=== PATIENT | female | born 1955 | race African-American/Black ===

== ENCOUNTER 2020-12-05 10:39 | Outpatient (CLI) | payer OTHER, SELFPAY ==
[2020-12-05 19:01] LABS: Basophils Absolute Auto 0.1 K/mm3 (0.0-0.1); Basophils Percent Auto 0.9 % (0.2-1.2); Eosinophils Absolute Auto 0.3 K/mm3 (0-0.3); Eosinophils Percent Auto 3.1 % (0-4.4); Hematocrit 46.5 % (37.0-47.0); Hemoglobin 15.2 g/dL (12.0-15.0); Immature Granulocyte Absolute 0.04 K/mm3 (0.00-0.031); Immature Granulocyte Percent A 0.4 % (0-0.5); Lymphocytes Absolute Auto 2.15 K/mm3 (0.9-3.2); Lymphocytes Percent Auto 23.2 % (18.3-44.2); Mean Corpuscular HGB Conc 32.7 g/dl (32-36); Mean Corpuscular Hemoglobin 27.9 pg (26-34); Mean Corpuscular Volume 85.3 fl (80-100); Mean Platelet Volume 12.1 fl (7.4-10.4); Monocytes Absolute Auto 0.5 K/mm3 (0.1-0.6); Monocytes Percent Auto 4.9 % (2.6-8.5); Neutrophils Absolute Auto 6.3 K/mm3 (1.3-6.7); Neutrophils Percent Auto 67.5 % (45.5-73.1); Platelet Count Result 227 k/mm3 (150-375); Red Blood Count 5.45 M/mm3 (4.2-5.4); Red Cell Distribution Width 14.3 % (11.5-14.5); White Blood Count 9.3 K/mm3 (4.5-10.0)
[2020-12-05 19:14] LABS: Alanine Aminotransferase 12 U/L (4-35); Albumin Level 4.6 g/dL (3.5-5.1); Alkaline Phosphatase 73 U/L (38-126); Anion Gap 8 mmol/L (8-16); Aspartate Amino Transferase 20 U/L (14-36); Bilirubin,Total 1.1 mg/dL (0.2-1.3); Blood Urea Nitrogen 14 mg/dL (7-17); Calcium 9.9 mg/dL (8.4-10.2); Carbon Dioxide 30 mmol/L (22-30); Chloride 104 mmol/L (98-107); Cholesterol 202 mg/dL (0-200); Estimated Glomerular Filt Rate > 60; Glucose 95 mg/dL (65-110); HDL Direct 46 mg/dL; Sodium 142 mmol/L (137-145); Triglycerides 135 mg/dL (<150)
[2020-12-05 19:26] LABS: LDL Cholesterol Direct 113 mg/dL
[2020-12-05 20:33] LABS: Hemoglobin A1C 5.3 % (<5.7)
== END 2020-12-05 10:40 | disposition home or self-care (01) ==
PROVIDERS: PCP Family Medicine; Visit Provider Family Medicine
DX: Z51.81 Encounter for therapeutic drug level monitoring (principal); Z79.899 Other long term (current) drug therapy; Z00.01 Encounter for general adult medical examination with abnormal findings
CPT/HCPCS: 36415; 80053; 80061; 83036; 85025

== ENCOUNTER 2021-03-19 11:57 | Outpatient (CLI) | payer OTHER, SELFPAY ==
--- NOTE | ~2021-03-19 | XR_ITS ---
XR shoulder LT min 2V 03/19/2021 12:07 Indication: Left shoulder pain Procedure: 4 views left shoulder Comparison: No prior studies for comparison. Findings: No fracture, subluxation or dislocation. There is mild polyarticular osteoarthritis of the left shoulder. No significant soft tissue abnormality. Impression: 1: Mild polyarticular osteoarthritis of the left shoulder. Reviewed, dictated and finalized at location B. HER TENDER HELPER Impression: 1: Mild polyarticular osteoarthritis of the left shoulder.
== END 2021-03-19 11:58 | disposition home or self-care (01) ==
LOC: ANHBWCIMG 11:58
PROVIDERS: PCP Family Medicine; Visit Provider Family Medicine
DX: M25.512 Pain in left shoulder (principal); M19.012 Primary osteoarthritis, left shoulder
CPT/HCPCS: 73030

== ENCOUNTER 2021-04-17 09:04 | Outpatient (CLI) | payer OTHER, SELFPAY ==
--- NOTE | ~2021-04-17 | XR_ITS ---
EXAMINATION:XR cervical spine 4-5V DATE: 04/17/2021 09:18 INDICATION: Neck pain TECHNIQUE: AP, lateral, bilateral oblique and odontoid views of the cervical spine are provided. COMPARISON: None FINDINGS: Alignment is normal. The odontoid is intact. No fracture is identified. The vertebral body heights are maintained. There is mild loss of intervertebral disc space height at C4-5 and C5-6 and m oderate loss of intervertebral disc space height at C6-7. There is moderate multilevel facet and unco vertebral joint osteoarthritis. There is mild bilateral neuroforaminal stenosis at C6-7. Prevertebral soft tissues are normal. IMPRESSION: 1. Moderate cervical spondylosis without acute findings. Reviewed, dictated and finalized at location F. GER ENERGY
== END 2021-04-17 09:05 | disposition home or self-care (01) ==
LOC: ANHBWCIMG 09:05
PROVIDERS: PCP Family Medicine; Visit Provider Family Medicine
DX: M47.892 Other spondylosis, cervical region (principal)
CPT/HCPCS: 72050

== ENCOUNTER 2021-04-18 10:18 | Outpatient (CLI) | payer OTHER, SELFPAY ==
--- NOTE | ~2021-04-18 | MM_ITS ---
EXAMINATION: MM screening dariana BI w shira HISTORY: Screening mammogram TECHNIQUE: Craniocaudal and mediolateral oblique 3-D tomosynthesis images were obtained and synthetic 2-D images were generated. CAD analysis was submitted and interpreted. COMPARISON: No prior mammogram is available for comparison at this institution. BREAST PARENCHYMAL COMPOSITION: The breasts are almost entirely fatty. FINDINGS: There are several 5 mm smaller circumscribed opacities of the breasts, benign in appearance . Occasional benign calcifications. There is no evidence of suspicious mass, calcification, or edd ectural distortion to suggest malignancy in either breast. IMPRESSION: 1. No mammographic evidence of malignancy. 2. Recommend routine screening mammography in one year. BI-RADS Category 2: Benign finding(s). Reviewed, dictated and finalized at location A. WARE ENGINEERING PROJECT MANAGER
== END 2021-04-18 10:19 | disposition home or self-care (01) ==
PROVIDERS: PCP Family Medicine; Visit Provider Family Medicine
DX: Z12.31 Encounter for screening mammogram for malignant neoplasm of breast (principal)
CPT/HCPCS: 77063; 77067

== ENCOUNTER 2021-04-23 15:34 | Outpatient (CLI) | payer OTHER, SELFPAY ==
--- NOTE | ~2021-04-23 | MR_ITS ---
EXAMINATION: MR shoulder LT wo con DATE: 04/23/2021 16:29 INDICATION: Left shoulder pain. TECHNIQUE: Magnetic resonance imaging (MRI) of the left shoulder was performed without intravenous co ntrast. Sequences included axial PD-weighted FS FSE, coronal oblique PD-weighted FS FSE and T2-weight ed FS FSE, and sagittal oblique T2-weighted FS FSE and T1-weighted FSE. COMPARISON: Left shoulder radiographs 03/19/2021 FINDINGS: Coracoacromial arch: The acromion undersurface is flat in morphology (type I). There is moderate acromioclavicular joint o steoarthritis. There is mild subacromial/subdeltoid bursitis. Rotator cuff: There is moderate supraspinatus tendinopathy. There are 2 small interstitial tears in infraspinatus t endon. Teres minor tendon is normal. There is moderate distal subscapularis tendinopathy. There is no asymmetric fatty atrophy of the rotator cuff muscle bellies. Biceps tendon and glenoid labrum: Biceps tendon is in the bicipital groove. There is mild intra-articular biceps tendinopathy. There is degeneration of the glenoid labrum without well-defined tear. Fluid: There is a moderate-sized glenohumeral joint effusion. Bones/cartilage: There is partial-thickness cartilage loss of humeral head, deep at the posterior articular surface. T here is deep partial-thickness cartilage loss of glenoid. Osteophytes are noted. IMPRESSION: 1. Moderate glenohumeral joint chondrosis. 2. Rotator cuff tendinopathy with 2 small interstitial tears of infraspinatus tendon. 3. Moderate acromioclavicular joint osteoarthritis. 4. Moderate-sized glenohumeral joint effusion. 5. Mild subacromial/subdeltoid bursitis. 6. Mild intra-articular biceps tendinopathy. Reviewed, dictated and finalized at location A. TER IMPRESSION: 1. Moderate glenohumeral joint chondrosis. 2. Rotator cuff tendinopathy with 2 small interstitial tears of infraspinatus t endon. 3. Moderate acromioclavicular joint osteoarthritis. 4. Moderate-sized glenohumeral joint effusion. 5. Mild subacromial/subdeltoid bursitis. 6. Mild intra-articular biceps tendinopathy.
== END 2021-04-23 15:35 | disposition home or self-care (01) ==
PROVIDERS: PCP Family Medicine; Visit Provider Family Medicine
DX: M25.412 Effusion, left shoulder (principal); M19.012 Primary osteoarthritis, left shoulder; M75.52 Bursitis of left shoulder
CPT/HCPCS: 73221

== ENCOUNTER 2021-08-07 13:13 | Outpatient (CLI) | payer OTHER, SELFPAY ==
--- NOTE | ~2021-08-07 | XR_ITS ---
XR finger 1st RT min 2V DATE: 08/07/2021 13:23 INDICATION: Right thumb pain TECHNIQUE: 4 views COMPARISON: None FINDINGS: There is prominent osteoarthritis including prominent spurring at the interphalangeal joint of the first digit. No fracture or dislocation, periosteal reaction or bone destruction. IMPRESSION: Prominent osteoarthritic change at the interphalangeal joint including very prominent spu rring Reviewed, dictated and finalized at location A. IMPRESSION: Prominent osteoarthritic change at the interphalangeal joint includ ing very prominent spurring
== END 2021-08-07 13:14 | disposition home or self-care (01) ==
PROVIDERS: PCP Family Medicine; Visit Provider Family Medicine
DX: M18.11 Unilateral primary osteoarthritis of first carpometacarpal joint, right hand (principal)
CPT/HCPCS: 73140

== ENCOUNTER 2022-01-21 08:39 | Outpatient (CLI) | payer OTHER, SELFPAY ==
--- NOTE | ~2022-01-21 | XR_ITS ---
XR hand BI arthritis min 3V DATE: 01/21/2022 08:59 INDICATION: Chronic bilateral hand tingling and numbness TECHNIQUE: 4 views of each hand COMPARISON: None FINDINGS: Right hand: There is joint space narrowing at the triscaphe joint consistent with mild osteoarthritis. There is joint space narrowing and periarticular spurring at the interphalangeal joint of the first d igit, distal interphalangeal joint of the second digit and proximal and distal interphalangeal joints of the third digit, with lesser involvement at the proximal interphalangeal joint of the fourth digi t. No fracture or dislocation, periosteal reaction or bone destruction, erosive change or chondrocalcino sis of the right hand. Left hand: There is mild osteoarthritis at the first carpometacarpal joint. There is joint space narrowing and p rominent periarticular spurring at the interphalangeal joint of the first digit. Similar osteoarthrit ic changes are noted at the distal interphalangeal joint of the second digit and third digit. No fracture or dislocation, periosteal reaction or bone destruction, erosive change or chondrocalcino sis. IMPRESSION: Polyarticular osteoarthritis Reviewed, dictated and finalized at location B. 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
[2022-01-21 19:55] LABS: Basophils Absolute Auto 0.1 K/mm3 (0.0-0.1); Basophils Percent Auto 0.7 % (0.2-1.2); Eosinophils Absolute Auto 0.4 K/mm3 (0-0.3); Eosinophils Percent Auto 4.6 % (0-4.4); Hematocrit 44.7 % (37.0-47.0); Hemoglobin 14.8 g/dL (12.0-15.0); Immature Granulocyte Absolute 0.04 K/mm3 (0.00-0.031); Immature Granulocyte Percent A 0.5 % (0-0.5); Lymphocytes Absolute Auto 2.29 K/mm3 (0.9-3.2); Lymphocytes Percent Auto 26.8 % (18.3-44.2); Mean Corpuscular HGB Conc 33.1 g/dl (32-36); Mean Corpuscular Hemoglobin 26.9 pg (26-34); Mean Corpuscular Volume 81.3 fl (80-100); Mean Platelet Volume 11.5 fl (7.4-10.4); Monocytes Absolute Auto 0.5 K/mm3 (0.1-0.6); Monocytes Percent Auto 5.4 % (2.6-8.5); Neutrophils Absolute Auto 5.3 K/mm3 (1.3-6.7); Platelet Count Result 195 k/mm3 (150-375); Red Cell Distribution Width 13.6 % (11.5-14.5); White Blood Count 8.5 K/mm3 (4.5-10.0)
[2022-01-21 20:15] LABS: Alanine Aminotransferase 13 U/L (6-35); Albumin Level 4.3 g/dL (3.5-5.1); Alkaline Phosphatase 81 U/L (38-126); Anion Gap 10 mmol/L (8-16); Aspartate Amino Transferase 46 U/L (14-36); Bilirubin,Total 0.9 mg/dL (0.2-1.3); Blood Urea Nitrogen 12 mg/dL (7-17); Calcium 9.1 mg/dL (8.4-10.2); Carbon Dioxide 28 mmol/L (22-30); Chloride 104 mmol/L (98-107); Cholesterol 233 mg/dL (0-200); Estimated Glomerular Filt Rate > 60; Glucose 80 mg/dL (65-110); HDL Direct 34 mg/dL; Potassium 3.7 mmol/L (3.4-5.0); Sodium 142 mmol/L (137-145); Triglycerides 134 mg/dL (<150)
[2022-01-21 20:26] LABS: LDL Cholesterol Direct 126 mg/dL
[2022-01-24 12:58] LABS: ANA Cascade Screen Negative (Negative)
== END 2022-01-21 08:40 | disposition home or self-care (01) ==
LOC: ANHBWCLAB 08:40
PROVIDERS: PCP Family Medicine; Visit Provider Family Medicine
DX: M54.2 Cervicalgia (principal); I10 Essential (primary) hypertension; F17.200 Nicotine dependence, unspecified, uncomplicated; M25.512 Pain in left shoulder; M19.041 Primary osteoarthritis, right hand; M19.042 Primary osteoarthritis, left hand
CPT/HCPCS: 36415; 73130; 80053; 80061; 85025; 86038

== ENCOUNTER 2022-01-25 07:01 | Outpatient (CLI) | payer OTHER, SELFPAY ==
--- NOTE | ~2022-01-25 | CT_ITS ---
EXAMINATION: CT lung screening DATE: 01/25/2022 07:24 INDICATION: Personal history of nicotine dependence, current smoker with 30 pack year history TECHNIQUE: Computed tomography (CT) of the chest was performed without intravenous contrast. The dose -length product (DLP) was 182.55 mGy-cm. Automated exposure control and iterative reconstruction tech Go[employer]que were employed. COMPARISON: None FINDINGS: There is mild emphysema. No suspicious pulmonary nodules are identified. There is mild atel ectasis in the left lower lobe. No pleural effusion or pneumothorax. No pathologically enlarged thora cic lymph nodes are identified. The heart size is normal. Calcified coronary artery atherosclerosis i s noted. There is severe thoracic spondylosis. There is a 4.2 cm cyst of the left kidney. IMPRESSION: 1. Lung-RADS category 1: Negative. Continue annual screening with noncontrast low-dose chest CT in 12 months. Reviewed, dictated and finalized at location A. ING RELOCATION IMPRESSION: 1. Lung-RADS category 1: Negative. Continue annual screening with noncontrast l ow-dose chest CT in 12 months.
== END 2022-01-25 07:02 | disposition home or self-care (01) ==
LOC: ANHIMG 07:05
PROVIDERS: PCP Family Medicine; Visit Provider Family Medicine
DX: Z12.2 Encounter for screening for malignant neoplasm of respiratory organs (principal); F17.210 Nicotine dependence, cigarettes, uncomplicated
CPT/HCPCS: 71271

== ENCOUNTER 2022-02-06 12:54 | Outpatient (CLI) | payer OTHER, SELFPAY ==
--- NOTE | ~2022-02-06 | DEXA_ITS ---
Bone Density Report Name: JOLYNN ANDRADE Age: 66 Sex: Female Ethnicity: Black Date of : 1955 Indication: postmenopausal; screening for osteoporosis; height loss; hysterectomy; Referring Provider: YUMIKO DANG Study: Bone densitometry was performed. Exam Date: February 06, 2022 Accession number: [id number] Bone Density: Region BMD T-score Z-score Classification AP Spine(L1-L4) 1.119 0.7 1.7 Normal Femoral Neck (Left) 0.849 0.0 0.6 Normal Total Hip (Left) 1.015 0.6 0.9 Normal Femoral Neck (Right) 0.886 0.3 0.9 Normal Total Hip (Right) 1.053 0.9 1.2 Normal Total Hip Mean 1.034 0.8 1.1 Normal World Health Organization criteria for BMD impression classify patients as: Normal (T-score at or above -1.0), Osteopenia (T-score between -1.0 and -2.5), or Osteoporosis (T-score at or below -2.5). 10-year Fracture Risk: FRAX not reported because: All T-scores for Spine Total, Hip Total, Femoral Neck at or above -1.0 Clinical Information Provided by Patient: Smokes Has the following medical conditions: Hysterectomy Patient maximum height was 61 Menopause Age: 56 No regular weight bearing exercise Drinks caffeinated beverages Onset of menses at age 11 Number of children 5 Impression: The patient has normal bone mass. The patient has risk factors, including: smoking. Discussion: BONE DENSITY IS ABOVE THE MINIMUM DESIRABLE LEVEL AT ALL SKELETAL SITES TESTED. This patient?s bone mineral density is above the minimum desirable level (T-score -1.0 or better) at all sites measured. The patient should follow a healthful lifestyle (good nutrition with adequate calcium and vitamin D, and appropriate weight-bearing exercise). Follow-Up: Consider repeating this study in 5 years or sooner if there is some new clinical indication. Reported by: MARCY on 02/06/2022 1:26:00 PM. Reviewed, dictated and finalized at location AOdilia CORDOVA
== END 2022-02-06 12:55 | disposition home or self-care (01) ==
LOC: ANHIMG 12:56
PROVIDERS: PCP Family Medicine; Visit Provider Family Medicine
DX: Z13.820 Encounter for screening for osteoporosis (principal); Z78.0 Asymptomatic menopausal state
CPT/HCPCS: 77080

== ENCOUNTER 2022-03-07 09:27 | Outpatient (CLI) | payer MEDICARE, SELFPAY ==
--- NOTE | 2022-03-07 11:00 | NEURO_ITS ---
Impression: # Complains of numbness of hands. # Bilateral Carpal Tunnel Syndrome of moderate degree. # Left ulnar neuropathy across the elbow. # Normal needle/EMG exam. Motor Nerve Conduction Upper Extremities Median Nerve Conduction Velocity (m/sec) Terminal Latency (msec) Response Voltage(mV) Elbow-Wrist Wrist Elbow Wrist Right 59 5.3 6 6 Left 60 5.6 6 6 Ulnar Nerve Conduction Velocity (m/sec) Terminal Latency (msec) Response Voltage(mV) Above Elbow Below Elbow Wrist Above Elbow Below Elbow Wrist Right 57 2.7 4 4 Left 50 60 2.8 5 4 8 F-Wave Latency Median (ms) Ulnar (ms) Right 28.1 27.3 Left 28.1 26.5 Sensory Nerve Conduction Upper Extremities Median Nerve Stimulation Terminal Latency (msec) Wrist/Digit Response Voltage (uV) Wrist Right 5.8/6.1 22/17 Left 5.2/5.4 /17 Ulnar Nerve Stimulation Terminal Latency (msec) Wrist/Digit Response Voltage (uV) Wrist Right 2.5 74 Left 2.4 48 Radial Nerve Terminal Latency (msec) Response Voltage(mV) Right 2.4 56 Left 2.2 41 Left Right Muscles Examined Fibrillation Fasciculation Scarcity Voltage Duration Left Right Left Right Left Right Left Right Left Right Deltoid Biceps X X Brachioradialis Triceps X X Pronator Teres X X Ext Indicis X X Ext Digitorum X X Abd Poll Brev X X 1st Dorsal Interosseus Paraspinals MTDD
== END 2022-03-07 09:28 | disposition home or self-care (01) ==
PROVIDERS: PCP Family Medicine; Visit Provider Family Medicine
DX: R20.0 Anesthesia of skin (principal); G56.03 Carpal tunnel syndrome, bilateral upper limbs; G56.22 Lesion of ulnar nerve, left upper limb
CPT/HCPCS: 95886; 95911

== ENCOUNTER 2022-05-22 08:22 | Outpatient (CLI) | payer MEDICARE, SELFPAY ==
--- NOTE | 2022-05-22 08:41 | ECG_ITS ---
Measurements Intervals Clive Rate: 80 P: 39 ND: 166 QRS: 34 QRSD: 90 T: 41 QT: 354 QTc: 410 Interpretive Statements SINUS RHYTHM MINIMAL Q WAVES- ANTERIOR LEADS INFERIOR INFARCT, AGE INDETERMINATE BASELINE ARTIFACT- I, II, III, AVR, AVL, AVF ABNORMAL ECG NO PREVIOUS ECG AVAILABLE FOR COMPARISON Electronically Signed On 05-22-2022 9:52:23 CDT by Ozzie Avalos D.O.
[2022-05-22 09:43] LABS: Anion Gap 9 mmol/L (8-16); Blood Urea Nitrogen 9 mg/dL (7-17); Calcium 8.7 mg/dL (8.4-10.2); Carbon Dioxide 29 mmol/L (22-30); Chloride 100 mmol/L (98-107); Estimated Glomerular Filt Rate > 60; Glucose 91 mg/dL (65-110); Potassium 4.1 mmol/L (3.4-5.0); Sodium 138 mmol/L (137-145)
== END 2022-05-22 08:23 | disposition home or self-care (01) ==
LOC: ANHSURGERY 08:28
PROVIDERS: Anesthesiology; PCP Family Medicine; Visit Provider Orthopaedic Surgery
DX: I10 Essential (primary) hypertension (principal); Z79.899 Other long term (current) drug therapy; Z01.818 Encounter for other preprocedural examination; R94.31 Abnormal electrocardiogram [ECG] [EKG]
CPT/HCPCS: 36415; 80048; 93005

== ENCOUNTER 2022-05-27 00:24 | Day surgery (SDC) | payer MEDICARE, SELFPAY ==
[2022-05-17 12:47] VITALS: BMI 35.2
--- NOTE | 2022-05-17 12:54 | PC.NURSE ---
PRE-OP INSTRUCTIONS, PLEASE READ CAREFULLY Report to the Outpatient Waiting Room, entrance under the green pavilion located off [facility], at time _12:30 PM_ on date _05/27/22_. Planned Procedure Time: _2:20 PM_. Time changes happen often and if your time is changed the preop area will call you the afternoon before. - You and your visitor will be asked to self-screen and do not enter if you have any COVID symptoms. - Only one visitor is requested with a max of two and NO children visitors are allowed at this time. - The patient visitor may be requested to leave or wait in car when not with patient due to distancing restrictions. - A mask is optional within the hospital at this time. Patients may have clear liquids (water, carbonated beverages, clear teas, apple juice) until 3 hours prior to surgery (1130 AM) with a maximum of 20 ounces. - No food from midnight until time of surgery Take the following medications with a SIP of water the morning of surgery: _CELECOXIB, DULOXETINE, EYE DROP_ DO NOT STOP ANY OF YOUR OTHER PRESCRIPTION MEDICATIONS PRIOR TO SURGERY ?EXCEPT THE FOLLOWING Medications to discontinue per ANESTHESIA - _GLUCOSAMINE 3 DAYS PRIOR TO SURGERY, Date to take last dose 05/23/22_ Please no make-up, nail mexican, hairspray, perfume, deodorant, or body powder the day of surgery. No jewelry (including any body piercings) or valuables the day of surgery, leave them at home. Please take a shower or bath the night before, or the morning of, surgery with an antibacterial soap. Wear comfortable, loose fitting clothing. - Jewelry must be removed prior to entering the operating room. Rings and piercings that are not removed may be cut off. - The hospital will not accept responsibility for valuables. - Please leave all valuables, including medications, at home the day of surgery. If you are going home after surgery, a licensed party bus driver must drive you home. - NO public transportation without another adult if you receive anesthesia. - We recommend that an adult stay with you for 24 hours following discharge. - We also recommend that you do not drive, make important decision, drink alcoholic beverages, or take any drugs that were not prescribed by your health care provider for at least 24 hours after your discharge time. Follow any additional instructions given to you from your surgeon. If you or anyone in your household have experienced Covid symptoms in the past week, please notify your surgeon or the nurse liaison at the phone number below for possible testing. Telephone instructions given to _PATIENT_and asked if any additional questions and then verbalized understanding. Patient advised to call surgeon office or pre surgery nurse liaison [phone] if any additional questions.
[2022-05-27] VITALS (8 sets, daily range): BP systolic 147–181; BP diastolic 77–89; PULSE 78–102; RESP 10–17; TEMP 36.1–36.8; O2SAT 96–100
[2022-05-27] MEDS: ACETAMINOPHEN 500 MG TABLET 1000 MG PO (12:53)
[2022-05-27] MEDS: KETOROLAC 15 MG/ML VIAL (*BKC) IV PUSH (13:09)
[2022-05-27] MEDS: LACTATED RINGERS 1,000 ML 30 ML IV CONT (13:15)
--- NOTE | 2022-05-27 13:26 | WPDHPUPDATE1 ---
History and Physical Update Update Date/Time: 05/27/22 13:26 History and Physical has been reviewed, including an updated exam of the patient. There are NO changes in the patient's condition. Risks, benefits, and alternatives have been discussed and questions answered. Patient agrees to proceed with procedure.
--- NOTE | 2022-05-27 13:29 | WPDANESEPPF ---
Anes - Initial Pre Proc Eval Procedure: Operation Date: 05/27/22 14:30 Proposed Procedures p Left Carpal and Cubital Tunnel Release - Saulo Fleming MD Date/Time: 05/27/22 13:29 Surgeon: Saulo Fleming MD Pre Op Diagnosis: Left Carpal & Cubital Tunnel Syndrome Patient Data Age: 66 Gender: F Height: 1.55 m Weight: 82.6 kg Last Vital Signs Temp 36.8 C 05/27/22 12:43 Pulse 102 H 05/27/22 12:43 Resp 16 05/27/22 12:43 BP 175/89 H 05/27/22 12:43 Pulse Ox 96 05/27/22 12:43 O2 Del Method Room Air 05/27/22 12:43 Allergies Allergy/AdvReac Type Severity Reaction Status Date / Time codeine AdvReac Mild Headache, Verified 05/27/22 12:49 N/V Home Medications Medication Instructions Recorded Confirmed Type chlorthalidone 25 mg tablet 12.5 mg PO DAILY #90 tabs 07/03/21 05/27/22 Rx lisinopril 20 mg tablet 20 mg PO DAILY #90 tabs 12/26/21 05/27/22 Rx celecoxib 100 mg capsule (Celebrex) 100 mg PO BID #90 caps 03/05/22 05/27/22 Rx glucosamine sulfate sodium Cl 1,000 mg PO DAILY 05/17/22 05/27/22 History 1,000 mg tablet olopatadine 0.1 % eye drops 1 drp BID 05/17/22 05/27/22 History duloxetine 30 mg capsule,delayed 30 mg PO DAILY #90 caps 05/19/22 05/27/22 Rx release Patient hx anesthesia problems: none Family hx anesthesia problems: none Results Review: All pre-operative results and documents have been reviewed as part of the pre-operative evaluation. [facility] Past Medical History Medical History Arthritis Carpal tunnel syndrome on both sides Cubital tunnel syndrome on left Surgical History Surgical History History of hysterectomy 2015, Dr. Quinones Family History Family History Father Hypertension Mother Hypertension Cancer Asthma Sibling No problems noted. Grandparent Cancer Diabetes mellitus Other Family history of arthritis Family history of cancer Social History Social History Smoking packs per day: 0.5 Smoking cigarettes per day: 10.0 Years smoked: 25 Smoking pack-years: 12.50 Smoking status: Current every day smoker Tobacco type: cigarettes Second hand tobacco smoke exposure: Yes Alcohol intake: never Substance use: never Substance use type: does not use Lack of Transportation: No Lack of Food: Never True Current Housing: I Have Housing Concerned About Future Housing: No Difficulty Paying Gas/Electric Bills: No Difficulty Paying for Meds: No Currently Unemployed: No Education: High School Diploma/GED Difficulty w/ Childcare or Family Care: No Living arrangements: with family Additional living arrangements comments: LIVES WITH AL GREENWOOD Occupation/Education: occupation 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/education 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[employer]- [employer] Gender identity (if verbalized by the patient): Female Spiritual care concerns: No Anes - Eval Final PreProcedure Day of Procedure 05/27/22 13:29 Patient weight: obese Heart: regular rate and rhythm Lungs: decreased breath sounds Airway: Mallampati scale class II Neurological: alert and oriented Last oral intake: >/= 8 hours ASA classification: III Emergent: no Anesthetic plan: proceed Anesthesia type and monitoring: general LMA and standard monitoring Results Review: All pre-operative results and documents have been reviewed as part of the pre-operative evaluation. Informed Consent: The patient's anesthetic plan and its attendant risks and benefits were discussed with the patient/family/POA. Questions were solicited and answers provided to the satisfaction of the patient/family/POA.
[2022-05-27] MEDS: ceFAZolin 2 GM/D5W 50 ML 2 GM/50 ML BAG IVPB (13:58)
[2022-05-27] MEDS: LIDO 1%/EPINEPHRINE 1:100,000 50 ML VIAL 10 ML INFILTRATE (14:24)
--- NOTE | 2022-05-27 15:02 | W.PM.PROC2 ---
Procedure Note - Detailed Date of Procedure 05/27/22 Pre-op Diagnosis Left Carpal & Cubital Tunnel Syndrome Post-op Diagnosis Same Procedure Performed Left carpal and cubital tunnel releases Surgeon Saulo Fleming MD Certified Nursing Assistant Instructor Zaki Graham Anesthesia General Description of Procedure The patient was identified and proper side identified. After being taken to the operating room and transferred to the OR table, a nonsterile tourniquet was placed high on the left upper extremity, which was prepped and draped in the usual sterile fashion. After general anesthetic induction and intubation, the subcutaneous tissue in the area of the incisions was infiltrated with several cc of 0.25% Marcaine and epinephrine solution. The carpal tunnel incision was injected before the incision, the cubital tunnel incision prior to closure. The extremity was exsanguinated and tourniquet inflated to 250 mmHg remaining up for approximately 21 minutes. A curvilinear incision was made over the ulnar nerve at the cubital tunnel. Subcutaneous tissue sharply dissected down to the cubital tunnel retinaculum. This was divided longitudinally in line with the ulnar nerve freeing it up. The elbow was taken through range of motion and there was no tendency for the nerve to subluxate. The wound was irrigated and skin edges reapproximated with 3-0 V lock and tissue adhesive. A longitudinal incision was then made over the ulnar aspect of the transverse carpal ligament. Subcutaneous tissue was bluntly dissected down to the ligament, which was identified and then transected longitudinally in line with the incision releasing the contents of the carpal canal. The tourniquet was released. Hemostasis was carried out with bipolar electrocautery. The median nerve had appropriate blush with reperfusion. The wound was irrigated with sterile saline solution. Skin edges were reapproximated with four 0 nylon suture and a sterile dressing was applied to both the wrist and elbow incisions securing them with an Dylon wrap. Estimated blood loss was negligible. She received perioperative antibiotics. At the completion of the procedure she was transferred back to a cart taken to recovery area in stable condition. Estimated Blood Loss 2 Tourniquet Time 21 Drains No Packing No Pathology None sent Complications No immediate complications Condition Stable Disposition PACU [facility] Billing Surgery - Charge Forward: Surgery Billing ([id number], [id number])
== END 2022-05-27 16:50 | disposition home or self-care (01) ==
PROVIDERS: PCP Family Medicine; Visit Provider Orthopaedic Surgery
PROC: (CPT 64721; principal; 2022-05-27 14:30)
DX: G56.02 Carpal tunnel syndrome, left upper limb (principal); G56.22 Lesion of ulnar nerve, left upper limb; F17.210 Nicotine dependence, cigarettes, uncomplicated; E66.9 Obesity, unspecified; Z68.34 Body mass index [BMI] 34.0-34.9, adult
CPT/HCPCS: 64721; 64718; 36415; 80048; 93005; A4565; A9270; J0690; J1100; J1885; J2250; J2405; J2704; J3010; J7120

== ENCOUNTER 2022-06-24 01:31 | Day surgery (SDC) | payer MEDICARE, SELFPAY ==
[2022-06-14 09:24] VITALS: BMI 34.1
--- NOTE | 2022-06-14 09:29 | PC.NURSE ---
Report to the Outpatient Waiting Room, entrance under the green pavilion located off [facility], at time __1130 on date ___06/24/22____. Planned Procedure Time: __1:30 PM . Time changes happen often and if your time is changed the preop area will call you the afternoon before. - You and your visitor will be asked to self-screen and do not enter if you have any COVID symptoms. - A mask is optional within the hospital at this time. Patients may have clear liquids (water, carbonated beverages, clear teas, apple juice) until 3 hours prior to surgery (1030 AM) with a maximum of 20 ounces. - No food from midnight until time of surgery - Infants may have breast milk until 4 hours before surgery, infant formula 6 hours prior to surgery. - Children will be allowed to drink immediately following surgery. If applicable, please bring a bottle or sippy cup to assist with drinking. Juice, water, soda, and popsicles are readily available. For infants on formula, please bring formula the day of surgery. Pacifiers are allowed. Take the following medications with a SIP of water the morning of surgery: _CELECOXIB, DULOXETINE_ DO NOT STOP ANY OF YOUR OTHER PRESCRIPTION MEDICATIONS PRIOR TO SURGERY ?EXCEPT THE FOLLOWING Medications to discontinue _NONE__, Date to take last dose Please no make-up, nail yakut, hairspray, perfume, deodorant, or body powder the day of surgery. No jewelry (including any body piercings) or valuables the day of surgery, leave them at home. Please take a shower or bath the night before, or the morning of, surgery with an antibacterial soap. Wear comfortable, loose fitting clothing. Children are encouraged to wear pajamas. - Jewelry must be removed prior to entering the operating room. Rings and piercings that are not removed may be cut off. - The hospital will not accept responsibility for valuables. - Please leave all valuables, including medications, at home the day of surgery. If you are going home after surgery, a licensed auto crane driver must drive you home. - NO public transportation without another adult if you receive anesthesia. - We recommend that an adult stay with you for 24 hours following discharge. - We also recommend that you do not drive, make important decision, drink alcoholic beverages, or take any drugs that were not prescribed by your health care provider for at least 24 hours after your discharge time. For Pediatric surgeries, we recommend two adults accompany the child home. Follow any additional instructions given to you from your surgeon. If you or anyone in your household have experienced Covid symptoms in the past week, please notify your surgeon or the nurse liaison at the phone number below for possible testing. Telephone instructions given to _PATIENT_and asked if any additional questions and then verbalized understanding. Patient advised to call surgeon office or pre surgery nurse liaison [phone] if any additional questions.
[2022-06-24 11:47] VITALS: BP 148/87; PULSE 72; RESP 16; TEMP 36.7; O2SAT 100
[2022-06-24] MEDS: ACETAMINOPHEN 500 MG TABLET 1000 MG PO (12:12)
[2022-06-24] MEDS: LACTATED RINGERS 1,000 ML 30 ML IV CONT ×2 (12:13→14:32)
--- NOTE | 2022-06-24 12:33 | WPDANESEPPF ---
Anes - Initial Pre Proc Eval Procedure: Operation Date: 06/24/22 13:30 Proposed Procedures p Right Carpal Tunnel Release - Saulo Fleming MD Date/Time: 06/24/22 12:33 Surgeon: Saulo Fleming MD Pre Op Diagnosis: Right Carpal Tunnel Synd Patient Data Age: 66 Gender: F Height: 1.55 m Weight: 83.7 kg Last Vital Signs Temp 36.7 C 06/24/22 11:47 Pulse 72 06/24/22 11:47 Resp 16 06/24/22 11:47 BP 148/87 H 06/24/22 11:47 Pulse Ox 100 06/24/22 11:47 O2 Del Method Room Air 06/24/22 11:47 Allergies Allergy/AdvReac Type Severity Reaction Status Date / Time latex Allergy Intermediate Itching Verified 06/24/22 11:49 codeine AdvReac Mild Headache, Verified 06/24/22 11:49 N/V Home Medications Medication Instructions Recorded Confirmed Type celecoxib 100 mg capsule (Celebrex) 100 mg PO BID #90 caps 06/07/22 06/24/22 Rx chlorthalidone 25 mg tablet 12.5 mg PO DAILY #90 tabs 06/15/22 06/24/22 Rx duloxetine 30 mg capsule,delayed 30 mg PO DAILY #90 caps 06/15/22 06/24/22 Rx release lisinopril 20 mg tablet 20 mg PO DAILY #90 tabs 06/15/22 06/24/22 Rx Patient hx anesthesia problems: none Family hx anesthesia problems: none Results Review: All pre-operative results and documents have been reviewed as part of the pre-operative evaluation. [facility] Past Medical History Medical History (Updated 06/11/22 @ 15:04 by Saulo Fleming MD) Arthritis Surgical History Surgical History Cubital tunnel syndrome on left Left ulnar nerve decompression May 27, 2022 History of carpal tunnel surgery of left wrist May 27, 2022 History of hysterectomy 2015, Dr. Quinones Family History Family History Father Hypertension Mother Hypertension Cancer Asthma Sibling No problems noted. Grandparent Cancer Diabetes mellitus Other Family history of arthritis Family history of cancer Social History Social History Smoking packs per day: 0.5 Smoking cigarettes per day: 10.0 Years smoked: 25 Smoking pack-years: 12.50 Smoking status: Current every day smoker Tobacco type: cigarettes Second hand tobacco smoke exposure: Yes Alcohol intake: never Substance use: never Substance use type: does not use Lack of Transportation: No Lack of Food: Never True Current Housing: I Have Housing Concerned About Future Housing: No Difficulty Paying Gas/Electric Bills: No Difficulty Paying for Meds: No Currently Unemployed: No Education: High School Diploma/GED Difficulty w/ Childcare or Family Care: No Living arrangements: with family Additional living arrangements comments: PT LIVES WITH TIMO MELENDEZ Occupation/Education: occupation 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/education comments: 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 Informed Consent: The patient's anesthetic plan and its attendant risks and benefits were discussed with the patient/family/POA. Questions were solicited and answers provided to the satisfaction of the patient/family/POA.
--- NOTE | 2022-06-24 13:19 | WPDHPUPDATE1 ---
History and Physical Update Update Date/Time: 06/24/22 13:19 History and Physical has been reviewed, including an updated exam of the patient. There are NO changes in the patient's condition. Risks, benefits, and alternatives have been discussed and questions answered. Patient agrees to proceed with procedure.
[2022-06-24] MEDS: ceFAZolin 2 GM/D5W 50 ML 2 GM/50 ML BAG IVPB (13:57)
[2022-06-24] MEDS: BUPIVACAINE/EPINEPHRINE 0.5% 50 ML VIAL 10 ML INFILTRATE (14:20)
[2022-06-24 14:32] VITALS: BP 135/74; PULSE 83; RESP 14; O2SAT 100
--- NOTE | 2022-06-24 14:37 | W.PM.PROC2 ---
Procedure Note - Detailed Date of Procedure 06/24/22 Pre-op Diagnosis Right Carpal Tunnel Syndrome Post-op Diagnosis Same Procedure Performed right carpal tunnel release Surgeon Saulo Fleming MD [employer] Machine Operator Sujatha Hong Anesthesia MAC and Local Description of Procedure The patient was identified and proper side identified. After being taken to the operating room and transferred to the OR table, a nonsterile tourniquet was placed high on the right upper extremity, which was prepped and draped in the usual sterile fashion. After IV sedation was administered, the subcutaneous tissue in the area of the incision was infiltrated with several cc of 0.25% Marcaine and epinephrine solution. The extremity was exsanguinated and tourniquet inflated to 250 mmHg remaining up for approximately 5 minutes. A longitudinal incision was over the ulnar aspect of the transverse carpal ligament. Subcutaneous tissue was bluntly dissected down to the ligament, which was identified and then transected longitudinally in line with the incision releasing the contents of the carpal canal. The tourniquet was released. Hemostasis was carried out with bipolar electrocautery. The median nerve had appropriate blush with reperfusion. The wound was irrigated with sterile saline solution. Skin edges were reapproximated with four 0 nylon suture and a sterile dressing was applied. A well-padded volar wrist splint was fashioned with the wrist in a neutral position. Estimated Blood Loss 1 Tourniquet Time 5 Drains No Packing No Pathology None sent Complications No immediate complications Condition Stable Disposition Same day [facility] Billing Surgery - Charge Forward: Surgery Billing ([id number])
[2022-06-24 15:00] VITALS: BP 137/82; PULSE 72; RESP 20
[2022-06-24 15:30] VITALS: BP 167/87; PULSE 72; RESP 20
== END 2022-06-24 15:42 | disposition home or self-care (01) ==
PROVIDERS: PCP Family Medicine; Visit Provider Orthopaedic Surgery
PROC: (CPT 64721; principal; 2022-06-24 13:30)
DX: G56.01 Carpal tunnel syndrome, right upper limb (principal); F17.210 Nicotine dependence, cigarettes, uncomplicated; E66.9 Obesity, unspecified; Z68.34 Body mass index [BMI] 34.0-34.9, adult
CPT/HCPCS: 64721; A9270; J0690; J1885; J2250; J2405; J2704; J3010; J7120

== ENCOUNTER 2022-11-18 15:36 | Outpatient (CLI) | payer MEDICARE, SELFPAY ==
--- NOTE | ~2022-11-18 | XR_ITS ---
XR thoracic spine 2V 11/18/2022 15:51 Indication: Chronic mid and lower back pain Procedure: 3 views of the thoracic spine Comparison: No prior studies for comparison. Findings: There is moderate thoracic spondylosis characterized by disc narrowing and marginal osteoph ytosis. There is levoscoliosis of the thoracic spine. No paraspinal soft tissue abnormality. Pedicles intact. Surrounding osseous structures and soft tissues are unremarkable. Impression: 1: Moderate thoracic spondylosis with levoscoliosis. Reviewed, dictated and finalized at location L. Impression: 1: Moderate thoracic spondylosis with levoscoliosis.
--- NOTE | ~2022-11-18 | XR_ITS ---
XR lumbar spine 2-3V 11/18/2022 15:50 Indication: Chronic intermittent low back Procedure: 4 views lumbar spine Comparison: No prior studies for comparison. Findings: There is mild dextrocurvature of the lumbar spine. There is disc narrowing and endplate deg enerative change at all lumbar levels. There is grade 1 degenerative spondylolisthesis at L3-4. Pedic les intact. Sacral foramen are symmetric. Impression: 1: Moderate-severe lumbar spondylosis with grade 1 degenerative spondylolisthesis at L3-4. Reviewed, dictated and finalized at location L. Impression: 1: Moderate-severe lumbar spondylosis with grade 1 degenerative spondylolisthes is at L3-4.
== END 2022-11-18 15:37 | disposition home or self-care (01) ==
LOC: ANHBWCIMG 15:38
PROVIDERS: PCP Nurse Practitioner Adult Health; Visit Provider Nurse Practitioner Adult Health
DX: M47.896 Other spondylosis, lumbar region (principal); M47.894 Other spondylosis, thoracic region
CPT/HCPCS: 72070; 72100

== ENCOUNTER 2023-07-02 11:45 | Outpatient (CLI) | payer MEDICARE, SELFPAY ==
--- NOTE | ~2023-07-02 | XR_ITS ---
EXAMINATION: XR_CERV2-3V_CR DATE: 07/02/2023 12:05 INDICATION: Radiculopathy, cervical region. TECHNIQUE: 3 views of cervical spine were obtained. COMPARISON: Cervical spine radiographs 04/17/2021 FINDINGS: Bone alignment is normal. Vertebral body heights are normal. There is mildly decreased disc height at C5-C6 and severely decreased disc height at C6-C7. There is multilevel facet joint osteoar thritis, severe on the left at C5-C6. There is mild central canal stenosis at C3-C4, C5-C6, and C6-C7 . No prevertebral soft tissue swelling. IMPRESSION: 1. Severe cervical spondylosis. Reviewed, dictated and finalized at location A.
== END 2023-07-02 11:46 | disposition home or self-care (01) ==
PROVIDERS: PCP Nurse Practitioner Adult Health; Visit Provider Nurse Practitioner Adult Health
DX: M54.12 Radiculopathy, cervical region (principal); M43.02 Spondylolysis, cervical region
CPT/HCPCS: 72040

== ENCOUNTER 2023-07-10 10:49 | Outpatient (CLI) | payer MEDICARE, SELFPAY ==
--- NOTE | ~2023-07-10 | MR_ITS ---
MRI of the cervical spine Clinical History: Radiculopathy Technique: Axial T2-weighted and gradient images, and sagittal T1-weighted, T2-weighted, and STIR katerina ges were acquired. Findings: There is no fracture or subluxation of the cervical spine. Vertebral bodies maintain normal height and alignment. No suspicious bone marrow signal reality seen. At C2-C3, there is no disc bulge or herniation. There is mild facet arthropathy and probable minimal right neural foraminal narrowing. Left neural foramen preserved. At C3-C4, there is mild disc osteophyte convex. No canal stenosis or cord compression. There is bilat eral neural foraminal narrowing with bilateral facet arthropathy. At C4-C5, there is minimal disc osteophyte complex, without canal stenosis or cord compression. There is facet arthropathy bilaterally with probable mild left neural foraminal narrowing and possible min imal right neural foraminal narrowing. At C5-C6, there is mild disc osteophyte complex, with flattening and mild compression of the ventral cord. There is bilateral neural foraminal narrowing with bilateral facet arthropathy, left worse than right. At C6-C7, there is disc osteophyte complex with mild to moderate canal stenosis and cord compression. There is bilateral neural foraminal narrowing with bilateral facet arthropathy. No abnormal signal evident in the spinal cord. Paravertebral soft tissues are unremarkable. Impression: Advanced degenerative spondylosis at C5-C6 and C6-C7, as detailed above. Mild to moderate degenerative change in the upper cervical spine, as above. Reviewed, dictated and finalized at [facility]. Impression: Advanced degenerative spondylosis at C5-C6 and C6-C7, as detailed above. Mild to moderate degenerative change in the upper cervical spine, as above.
== END 2023-07-10 10:50 | disposition home or self-care (01) ==
PROVIDERS: PCP Nurse Practitioner Adult Health; Visit Provider Nurse Practitioner Adult Health
DX: M47.892 Other spondylosis, cervical region (principal)
CPT/HCPCS: 72141

== ENCOUNTER 2023-11-05 11:01 | Outpatient (CLI) | payer MEDICARE, SELFPAY ==
--- NOTE | 2023-11-05 11:41 | ECG_ITS ---
Test Date: 2023-11-05 12:03:24 Measurements Intervals Pollock Rate: 71 P: 52 NJ: 178 QRS: 15 QRSD: 109 T: 20 QT: 381 QTc: 416 Interpretive Statements SINUS RHYTHM INFERIOR INFARCT, AGE INDETERMINATE BASELINE ARTIFACT- I, II, III, AVR, AVL, AVF ABNORMAL ECG No previous ECG available for comparison Electronically Signed On 11-05-2023 12:54:36 CDT by Ozzie Avalos D.O.
[2023-11-05 12:14] LABS: Add Urine Microscopic? NO; Appearance Urine Clear (Clear); Bilirubin Urine Negative (Negative); Blood Urine Negative (Negative); Color Urine Yellow (Yellow); Glucose Urine UA Negative (Negative); Hematocrit 40.9 % (37.0-47.0); Hemoglobin 13.6 g/dL (12.0-15.0); Ketones Urine Negative (Negative); Leukocyte Esterase Ur Negative LEU/UL (Negative); Mean Corpuscular HGB Conc 33.3 g/dl (32-36); Mean Corpuscular Hemoglobin 27.3 pg (26-34); Mean Corpuscular Volume 82.1 fl (80-100); Mean Platelet Volume 11.3 fl (7.4-10.4); Nitrate Urine Negative (Negative); Platelet Count Result 208 k/mm3 (150-375); Protein Urine Negative (Negative); Red Blood Count 4.98 M/mm3 (4.2-5.4); Red Cell Distribution Width 14.2 % (11.5-14.5); Specific Grav Ur 1.013 (1.001-1.035); pH Urine 6.5 (5.0-9.0)
[2023-11-05 12:26] LABS: Anion Gap 8 mmol/L (4-12); Blood Urea Nitrogen 13 mg/dL (7-17); Carbon Dioxide 30 mmol/L (22-30); Chloride 101 mmol/L (98-107); Estimated Glomerular Filt Rate > 60; Glucose 90 mg/dL (65-110); Potassium 3.6 mmol/L (3.4-5.0); Sodium 139 mmol/L (137-145)
[2023-11-05 12:33] LABS: Prothrombin Time 13.5 Seconds (11.1-14.7)
[2023-11-05 12:34] LABS: Partial Thromboplastin Time 32.1 Seconds (22.3-36.8)
== END 2023-11-05 11:02 | disposition home or self-care (01) ==
PROVIDERS: PCP Nurse Practitioner Adult Health; Visit Provider Neurological Surgery
DX: Z01.818 Encounter for other preprocedural examination (principal); M54.12 Radiculopathy, cervical region; I10 Essential (primary) hypertension; R94.31 Abnormal electrocardiogram [ECG] [EKG]
CPT/HCPCS: 36415; 80048; 81003; 85027; 85610; 85730; 86850; 86900; 86901; 93005

== ENCOUNTER 2023-11-27 10:38 | Outpatient (CLI) | payer MEDICARE, SELFPAY ==
--- NOTE | 2023-11-27 11:16 | EST_ITS ---
Patient Info Name: Tracie Espinoza Age: 67 years : 1955 Gender: Female Ht: 61 in Wt: 201 lbs BSA: 2.03 m2 HR: 81 bpm BP: 100 / 75 mmHg Heart Rhythm: Sinus Rhythm Exam Date: 11/27/2023 11:25 AM Exam Location: Echo Lab Patient Status: Outpatient Admit Date: 11/27/2023 Staff Ordering Physician: Lani Drummond APRN Attending Provider: Lani Drummond APRN Exercise Technologist: Delia Phillips CT Exercise Physician: Ozzie Avalos DO Exam Type: CA stress test treadmill Study Info Indications R94.31 - Abnormal electrocardiogram ECG EKG A treadmill exercise stress test was performed. Summary 1. 1. Negative Ramon exercise stress test for ischemic ST changes by ECG criteria. 2. 2. Poor functional capacity, achieving 4.7 METs of workload. 3. 3. Rapid HR response to exercise. 4. 4. Appropriate HR recovery at 1 minute post exercise. 5. 5. No imaging with stress testing. 6. 6. Patient informed of the above results. Protocol: Ramon Stress ECG Details Stage: REST Duration (min): 3 min : 58 sec Speed (mph): 0.0 Grade (%): 0 HR (bpm): 117 SBP (mmHg): 100 DBP (mmHg): 75 METS: --- Stage: REST Duration (min): 9 min : 30 sec Speed (mph): 0.0 Grade (%): 0 HR (bpm): 79 SBP (mmHg): 100 DBP (mmHg): 75 METS: --- Stage: STAGE 1 Duration (min): 1 min : 0 sec Speed (mph): 1.7 Grade (%): 10 HR (bpm): 108 SBP (mmHg): 100 DBP (mmHg): 75 METS: --- Stage: STAGE 1 Duration (min): 2 min : 0 sec Speed (mph): 1.7 Grade (%): 10 HR (bpm): 131 SBP (mmHg): 100 DBP (mmHg): 75 METS: --- Stage: STAGE 1 Duration (min): 2 min : 25 sec Speed (mph): 1.7 Grade (%): 10 HR (bpm): 125 SBP (mmHg): 100 DBP (mmHg): 75 METS: --- Stage: RECOVERY Duration (min): 0 min : 34 sec Speed (mph): 0.0 Grade (%): 0 HR (bpm): 129 SBP (mmHg): 180 DBP (mmHg): 87 METS: --- Stage: RECOVERY Duration (min): 1 min : 34 sec Speed (mph): 0.0 Grade (%): 0 HR (bpm): 101 SBP (mmHg): 180 DBP (mmHg): 87 METS: --- Stage: RECOVERY Duration (min): 2 min : 34 sec Speed (mph): 0.0 Grade (%): 0 HR (bpm): 100 SBP (mmHg): 180 DBP (mmHg): 87 METS: --- Stage: RECOVERY Duration (min): 3 min : 29 sec Speed (mph): 0.0 Grade (%): 0 HR (bpm): 94 SBP (mmHg): 187 DBP (mmHg): 86 METS: --- Rest HR: 79 bpm Peak HR: 141 bpm Rest Sys BP: 100 mmHg Peak Sys BP: 187 mmHg Max Pred HR: 153 bpm % Max Pred HR: 92 % Target HR: 130 bpm Max RPP: 26,367 bpm*mmHg Rubio Score: -1 Termination Reason: Reached target heart rate or workload Cardiac Symptoms: Shortness of breath Max ST Seg Deviation: 0.70 mm Total Time: 2 min : 25 sec Rest Mueller BP: 75 mmHg Peak Mueller BP: 86 mmHg Angina Score: None Total METS: 4.7 Resting ECG Sinus rhythm. Stress ECG No ST changes. Arrhythmias None. Report Signatures
== END 2023-11-27 10:39 | disposition home or self-care (01) ==
PROVIDERS: PCP Nurse Practitioner Adult Health; Visit Provider Nurse Practitioner Adult Health
DX: R94.31 Abnormal electrocardiogram [ECG] [EKG] (principal)
CPT/HCPCS: 93017

== ENCOUNTER 2023-12-10 00:49 | Day surgery (SDC) | payer MEDICARE, SELFPAY ==
--- NOTE | 2023-11-03 14:00 | PC.NURSE ---
Report to the Outpatient Waiting Room, entrance under the green pavilion located off [facility], at time _6 AM on date 11/12/23 . Planned Procedure Time: _7:30 AM .? Time changes happen often and if your time is changed the preop area will call you the afternoon before. - You and your visitor will be asked to self-screen and do not enter if you have any COVID symptoms. Please call surgeon if you need to reschedule. - A mask is optional within the hospital at this time. Patients may have clear liquids (water, carbonated beverages, clear teas, apple juice) until 3 hours prior to surgery ( 4:30 AM)with a maximum of 20 ounces. - No food from midnight until time of surgery and no smoking - Infants may have breast milk until 4 hours before surgery, infant formula 6 hours prior to surgery. - Children will be allowed to drink immediately following surgery.? If applicable, please bring a bottle or sippy cup to assist with drinking. Juice, water, soda, and popsicles are readily available.? For infants on formula, please bring formula the day of surgery.? Pacifiers are allowed. Take only the following medications with a SIP of water on the morning of surgery: ___NONE DO NOT STOP ANY OF YOUR OTHER PRESCRIPTION MEDICATIONS PRIOR TO SURGERY EXCEPT THE FOLLOWING Medications to discontinue per physician ___PT STATES HOLD CELECOXIB 7 DAYS PRE OP PER DR OSULLIVAN.LAST DOSE 11/04/23 Please no make-up, nail pashto, hairspray, perfume, deodorant, or body powder the day of surgery.? No jewelry (including any body piercings) or valuables the day of surgery, leave them at home.? Please take a shower or bath the night before, or the morning of, surgery with an antibacterial soap.? Wear comfortable, loose fitting clothing.? Children are encouraged to wear pajamas. - Jewelry must be removed prior to entering the operating room.? Rings and piercings that are not removed may be cut off. - The hospital will not accept responsibility for valuables.? - Please leave all valuables, including medications, at home the day of surgery. If you are going home after surgery, a licensed funeral limousine driver must drive you home.? - NO public transportation without another adult if you receive anesthesia. - We recommend that an adult stay with you for 24 hours following discharge. - We also recommend that you do not drive, make important decision, drink alcoholic beverages, or take any drugs that were not prescribed by your health care provider for at least 24 hours after your discharge time. For Pediatric surgeries, we recommend two adults accompany the child home. Follow any additional instructions given to you from your surgeon. Telephone instructions given to __PATIENT and asked if any additional questions and then verbalized understanding. Patient advised to call surgeon office or pre surgery nurse liaison [phone] if any additional questions.
[2023-11-03 14:09] VITALS: BMI 38.0
--- NOTE | 2023-12-04 09:18 | PC.NURSE ---
Report to the Outpatient Waiting Room, entrance under the green pavilion located off [facility], at time _1000_ on date _[id number]_. Planned Procedure Time: _1200_.? Time changes happen often and if your time is changed the preop area will call you the afternoon before. - You and your visitor will be asked to self-screen and do not enter if you have any COVID symptoms. Please call surgeon if you need to reschedule. - A mask is optional within the hospital at this time. Patients may have clear liquids (water, carbonated beverages, clear teas, apple juice) until 3 hours prior to surgery with a maximum of 20 ounces. - No food from midnight until time of surgery and no smoking Take only the following medications with a SIP of water on the morning of surgery: ___Tramadol if needed DO NOT STOP ANY OF YOUR OTHER PRESCRIPTION MEDICATIONS PRIOR TO SURGERY EXCEPT THE FOLLOWING Medications to discontinue per physician ___Patient stopped Celebrex 12-03-2023 Please no make-up, nail arabic, hairspray, perfume, deodorant, or body powder the day of surgery.? No jewelry (including any body piercings) or valuables the day of surgery, leave them at home.? Please take a shower or bath the night before, or the morning of, surgery with an antibacterial soap.? Wear comfortable, loose fitting clothing.? - Jewelry must be removed prior to entering the operating room.? Rings and piercings that are not removed may be cut off. - The hospital will not accept responsibility for valuables.? - Please leave all valuables, including medications, at home the day of surgery. If you are going home after surgery, a licensed coal tram driver must drive you home.? - NO public transportation without another adult if you receive anesthesia. - We recommend that an adult stay with you for 24 hours following discharge. - We also recommend that you do not drive, make important decision, drink alcoholic beverages, or take any drugs that were not prescribed by your health care provider for at least 24 hours after your discharge time. Follow any additional instructions given to you from your surgeon. Telephone instructions given to __Tracie___and asked if any additional questions and then verbalized understanding. Patient advised to call surgeon office or pre surgery nurse liaison [phone] if any additional questions.
[2023-12-10] VITALS (12 sets, daily range): BP systolic 130–172; BP diastolic 67–94; PULSE 83–97; RESP 12–18; TEMP 35.4–37; O2SAT 92–100; BMI 37.7
--- NOTE | ~2023-12-10 | XR_ITS ---
EXAMINATION: XR fluoroscopy no charge DATE: 12/10/2023 14:55 INDICATION: Anterior cervical discectomy and fusion at C5-C6 and C6-C7 TECHNIQUE: 2 fluoroscopic images of the cervical spine were obtained in frontal and lateral projectio ns during procedure performed by Dr. Schmitz. Radiologist was not present for the imaging or procedur e. The amount of fluoroscopy time used during this procedure was 0.1 minutes. Total DAP was 0.282 Gyc m^2. COMPARISON: Cervical spine radiographs dated 07/12/2023 FINDINGS: Interval discectomies at C5-C6 and C6-7 with instrumented anterior spinal fusion including interbody fusion devices at both levels and C5-C7 anterior plate-screw fixation. Endotracheal tube is seen exte nding into the thoracic trachea. IMPRESSION: 1. Fluoroscopy utilized during C5-C7 instrumented anterior spinal fusion. See procedure note for furt her detail. Reviewed, dictated and finalized at location A. IMPRESSION: 1. Fluoroscopy utilized during C5-C7 instrumented anterior spinal fusion. See p rocedure note for further detail.
[2023-12-10] MEDS: LACTATED RINGERS 1,000 ML 30 ML IV CONT ×2 (11:01→15:00)
--- NOTE | 2023-12-10 11:15 | WPDANESEPPF ---
Anes - Initial Pre Proc Eval Procedure: Operation Date: 12/10/23 12:00 Proposed Procedures p Anterior Cervical Discectomy with Fusion C5-C6, C6-C7 - Wendi Schmitz MD Date/Time: 12/10/23 11:15 Surgeon: Wendi Schmitz MD Pre Op Diagnosis: cervical myelopathy,cervical radiculopathy Patient Data Age: 68 Gender: F Height: 1.55 m Weight: 90.5 kg Last Vital Signs Temp 36.6 C 12/10/23 10:30 Pulse 84 12/10/23 10:30 Resp 16 12/10/23 10:30 BP 146/82 H 12/10/23 10:30 Pulse Ox 100 12/10/23 10:30 O2 Del Method Room Air 12/10/23 10:30 Allergies Allergy/AdvReac Type Severity Reaction Status Date / Time latex Allergy Intermediate Itching Verified 12/10/23 10:34 codeine AdvReac Mild Headache, Verified 12/10/23 10:34 N/V Home Medications Medication Instructions Recorded Confirmed Type chlorthalidone 25 mg tablet See Rx Instructions .Route 06/05/23 12/04/23 Rx .COMPLEX #45 tabs celecoxib 100 mg capsule See Rx Instructions .Route 09/15/23 12/10/23 Rx .COMPLEX #60 caps tramadol 50 mg tablet 50 mg PO Q6H PRN pain #30 tabs 11/11/23 12/04/23 Rx lisinopril 20 mg tablet See Rx Instructions .Route 12/03/23 12/04/23 Rx .COMPLEX #90 tabs Patient hx anesthesia problems: none Family hx anesthesia problems: none Results Review: All pre-operative results and documents have been reviewed as part of the pre-operative evaluation. [facility] Past Medical History Medical History Arthritis Surgical History Surgical History Cubital tunnel syndrome on left Left ulnar nerve decompression May 27, 2022 History of carpal tunnel surgery of left wrist May 27, 2022 History of hysterectomy 2015, Dr. Quinones Right carpal tunnel syndrome Right carpal tunnel release June 24, 2022 Family History Family History Father Hypertension Mother Hypertension Cancer Asthma Sibling No problems noted. Grandparent Cancer Diabetes mellitus Other Family history of arthritis Family history of cancer Social History Social History Smoking packs per day: 0.5 Smoking cigarettes per day: 10.0 Years smoked: 25 Smoking pack-years: 12.50 Smoking status: Current every day smoker Tobacco type: cigarettes Second hand tobacco smoke exposure: Yes Additional smoking assessment comments: CURRENTLY SMOKES 4 CIGARETTES PER DAY Alcohol intake: never Substance use: never Substance use type: does not use Lack of Transportation: No Lack of Food: Never True Current Housing: I Have Housing Concerned About Future Housing: No Difficulty Paying Gas/Electric Bills: No Difficulty Paying for Meds: No Currently Unemployed: No Education: High School Diploma/GED Difficulty w/ Childcare or Family Care: No Living arrangements: with family Additional living arrangements comments: PT LIVES WITH TIMO MELENDEZ Occupation/Education: occupation 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/education comments: 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 Informed Consent: The patient's anesthetic plan and its attendant risks and benefits were discussed with the patient/family/POA. Questions were solicited and answer
--- NOTE | 2023-12-10 11:25 | PM.IMHP ---
H&P: HPI History of Present Illness Date/Time: 12/10/23 11:25 Chief Complaint: cervical myelopathy Narrative: Ms. Espinoza is a 67-year-old female with history of hypertension who presents for evaluation of neck pain and bilateral hand numbness. She has been having the symptoms for about a year. Her neck pain is constant and radiates towards the left shoulder as well as between the shoulder blades. This worsens with any physical activity or turning her neck. She has pain in both middle fingers and numbness of both hands which is constant. She has trouble opening jars or gripping things. She drops objects and feels a sense of weakness when attempting to lift things with her arms. She denies any balance issues, tripping, falling, or bowel or bladder changes. She takes Tylenol for pain. She has some physical therapy for her neck and shoulders without improvement. She notably smokes 5 cigarettes a day. She does not take any blood thinners. 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 She notably had bilateral carpal tunnel and cubital tunnel surgeries for her hand symptoms, but the surgeries did not lead to any symptomatic improvement. Review of Systems Review of Systems: All systems reviewed & are unremarkable except as noted in HPI and below PMFSH Past Medical History Medical History Arthritis Surgical History Surgical History Cubital tunnel syndrome on left Left ulnar nerve decompression May 27, 2022 History of carpal tunnel surgery of left wrist May 27, 2022 History of hysterectomy 2014, Dr. Quinones Right carpal tunnel syndrome Right carpal tunnel release June 24, 2022 Family History Family History Father Hypertension Mother Hypertension Cancer Asthma Sibling No problems noted. Grandparent Cancer Diabetes mellitus Other Family history of arthritis Family history of cancer Social History Social History Smoking packs per day: 0.5 Smoking cigarettes per day: 10.0 Years smoked: 25 Smoking pack-years: 12.50 Smoking status: Current every day smoker Tobacco type: cigarettes Second hand tobacco smoke exposure: Yes Additional smoking assessment comments: CURRENTLY SMOKES 4 CIGARETTES PER DAY Alcohol intake: never Substance use: never Substance use type: does not use Lack of Transportation: No Lack of Food: Never True Current Housing: I Have Housing Concerned About Future Housing: No Difficulty Paying Gas/Electric Bills: No Difficulty Paying for Meds: No Currently Unemployed: No Education: High School Diploma/GED Difficulty w/ Childcare or Family Care: No Living arrangements: with family Additional living arrangements comments: PT LIVES WITH TIMO MELENDEZ Occupation/Education: occupation 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/education comments: 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 Gender identity (if verbalized by the patient): Female Spiritual care concerns: No Meds Home Medications and Allergies Home Medications Medication Instructions Recorded Confirmed Type chlorthalidone 25 mg tablet See Rx Instructions .Route 06/05/23 12/04/23 Rx .COMPLEX #45 tabs celecoxib 100 mg capsule See Rx Instructions .Route 09/15/23 12/10/23 Rx .COMPLEX #60 caps tramadol 50 mg tablet 50 mg PO Q6H PRN pain #30 tabs 11/11/23 12/04/23 Rx lisinopril 20 mg tablet See Rx Instructions .Route 12/03/23 12/04/23 Rx .COMPLEX #90 tabs Allergies Allergy/AdvReac Type Severity Reaction Status Date / Time latex Allergy Intermediate Itching Verified 12/10/23 10:34 codeine AdvReac Mild Headache, Verified 12/10/23 10:34 N/V Vital Signs Vital Signs - 24 hr 12/10/23 10:30 Temperature 98 F Pulse Rate 84 Re
--- NOTE | 2023-12-10 11:27 | WPDHPUPDATE1 ---
History and Physical Update Update Date/Time: 12/10/23 11:27 History and Physical has been reviewed, including an updated exam of the patient. There are NO changes in the patient's condition. Risks, benefits, and alternatives have been discussed and questions answered. Patient agrees to proceed with procedure.
[2023-12-10] MEDS: ceFAZolin 2 GM/D5W 50 ML 2 GM/50 ML BAG IVPB ×2 (11:42→18:18)
[2023-12-10] MEDS: BUPIVACAINE/EPINEPHRINE 0.5% 50 ML VIAL 20 ML INFILTRATE (12:24)
--- NOTE | 2023-12-10 15:02 | PM.OP ---
Procedure Note - Brief Procedure Note - Brief Date of procedure: 12/10/23 cervical myelopathy,cervical radiculopathy Post-op diagnosis: Same Procedure performed: ACDF C5-6, C6-7 Surgeon: Wendi Schmitz MD Outdoor Ad[employer] Leasing Agent: Mandi Anesthesia: GETA Findings: Successful ACDF without complication Estimated blood loss (mL): 25 Drains: No Packing: No Pathology: None sent Complications: No immediate complications Condition: Stable Disposition: PACU
[2023-12-10] MEDS: fentaNYL CITRATE INJ (*CRX) 100 MCG/2 ML VIAL 25 MCG IV PUSH ×4 (15:12→15:44)
[2023-12-10] MEDS: oxyCODONE HCL (*CRX) 5 MG TAB IR 10 MG PO ×2 (16:33→20:03)
[2023-12-10] MEDS: ACETAMINOPHEN 500 MG TABLET 1000 MG PO ×2 (16:33→20:05)
[2023-12-10] MEDS: SODIUM CHLORIDE 0.9% IV 1,000 ML 100 ML IV CONT (16:34)
--- NOTE | 2023-12-10 16:44 | ADMGEN ---
This patient, Tracie Espinoza, was admitted to Medical Room 248-. Patient/family oriented to hospital policies and general routines including ID bracelet, bed and alarms, visiting hours, pain management, procedures, bathroom and other care routines, personal items, smoking policy, room service/diet, and visiting hours. Information on how to activate the Rapid Response Team has been discussed. Patient/Family are encouraged to report perceived risks to care and to ask questions if they do not understand what they are told or what they should do.
--- NOTE | 2023-12-10 18:27 | W.PM.PROC2 ---
Procedure Note - Detailed Date of Procedure 12/10/23 Pre-op Diagnosis cervical myelopathy,cervical radiculopathy Post-op Diagnosis Same Procedure Performed 1. Anterior cervical diskectomy C5-6, C6-7 2. Anterior cervical arthrodesis C5-6, C6-7 with i-Factor 3. Anterior cervical interbody placement at C5-6, C6-7 4. Use of microscope for microsurgical dissection 5. Use of C-arm for fluoroscopy Surgeon Wendi Schmitz MD Anesthesia General Description of Procedure The patient was taken to the operating room and was transferred to the operating table in the supine position. General anesthesia was induced. Pressure points were appropriately padded, and compression devices were placed on the patient's calves. A shoulder roll was placed. The appropriate level was confirmed with the C-arm XR imaging. The patient was prepped and draped in usual sterile fashion. Perioperative antibiotics were given. Time out was performed. Local anesthesia was injected into the planned incision site. Incision was made with a 10-blade scalpel on the right side of the neck. The subcutaneous tissue was undermined above the platysma with the Metzenbaum scissors. The platysma was sharply opened horizontally. Bleeding was controlled with the bipolar. The avascular plane to the spine was dissected sharply. The anterior border of the spine was located and exposed with sharp and blunt dissection. Dissection was difficult due to the volume of soft tissue. The superior thyroid artery was also noted in an aberrant location, so additional time was required to dissect and mobilize this artery to be able to retract it without injury. A spinal needle was used to localize the C6-7 disc space; this was confirmed on fluoroscopy. The longus coli muscles were elevated bilaterally with a bovie. Once the C5, C6, and C7 vertebral bodies and adjacent intervertebral discs were adequately exposed, self-retaining retractors were placed. Rome pins were placed in C5 and C6. The disc was removed with a combination of currettes and kerrisons, and the posterior longitudinal ligament was opened until the neuroforamen bilaterally were adequately decompressed. Interbody trial instruments were used to determine the appropriate size for the prosthetic vertebral interbody cage. Hemostasis was achieved in the disc space. An 5mm interbody was filled with i-Factor and placed at C5-6. The caspar pin was removed from C5 and replaced in C7. Wax was placed in the caspar pin site. This process was repeated at the C6-7 disc. The disc was removed as described above, and the posterior longitudinal ligament was opened until the neuroforamen bilaterally were adequately decompressed. Interbody trial instruments were used to determine the appropriate size for the prosthetic vertebral interbody cage. Hemostasis was achieved in the disc space. A 5mm interbody was filled with i-Factor and placed at C6-7. The Rome pins were removed, and bone wax was used for hemostasis. Osteophytes over the vertebral bodies were removed with a Leksell and high-speed drill. A 28mm plate was placed over the C5, C6, and C7 vertebral bodies and secured with 14mm screws. Accurate hardware placement was confirmed with fluoroscopy. The surgical cavity was copiously irrigated; appropriate hemostasis was verified; and there was no evidence of dural tear/CSF leak. The platysma was closed with interrupted 3-0 Vicryl, followed by interrupted 3-0 Vicryl for the dermis, and 4-0 running subcuticular monocryl for the skin. Dermabond was placed. The patient was extubated, transferred to the bed, and taken to the PACU without incident. Billing codes 08900, [id number], [id number], [id number], [id number] Drains No Packing No Pathology None sent Complications None Condition Stable Disposition PACU [facility] Billing Surgery - Charge Forward: Surgery Billing
[2023-12-10] MEDS: DOCUSATE SODIUM 100 MG CAPSULE PO (20:02)
[2023-12-11 02:03] VITALS: BP 127/70; PULSE 80; RESP 18; TEMP 36.9; O2SAT 99
[2023-12-11] MEDS: ceFAZolin 2 GM/D5W 50 ML 2 GM/50 ML BAG IVPB ×2 (03:21→11:23)
[2023-12-11] MEDS: SODIUM CHLORIDE 0.9% IV 1,000 ML 100 ML IV CONT (03:22)
[2023-12-11] MEDS: ACETAMINOPHEN 500 MG TABLET 1000 MG PO ×2 (03:24→08:17)
[2023-12-11 06:03] VITALS: BP 129/80; PULSE 70; RESP 18; TEMP 36.7; O2SAT 98
[2023-12-11 08:17] VITALS: BP 137/67; PULSE 71; RESP 14; TEMP 36.4; O2SAT 98
[2023-12-11] MEDS: oxyCODONE HCL (*CRX) 5 MG TAB IR PO (08:17)
[2023-12-11] MEDS: CHLORTHALIDONE 12.5 MG TAB PO (08:17)
[2023-12-11] MEDS: DOCUSATE SODIUM 100 MG CAPSULE PO (08:17)
[2023-12-11] MEDS: lisinopriL 20 MG TABLET BY MOUTH (08:17)
[2023-12-11 12:21] VITALS: BP 149/73; PULSE 72; RESP 14; TEMP 36.2; O2SAT 100
--- NOTE | 2023-12-11 13:07 | WPDNEUROSGPN ---
Progress Note: A&P Assessment and Plan (1) Status post cervical arthrodesis: Code(s): Z98.1 - Arthrodesis status Status: Acute Plan -Discharge home today -Wound care and activity precautions reviewed at bedside -Follow up with me in 2 weeks Subjective Date/time seen: 12/11/23 13:07 Interval history: She reports doing very well without any significant neck pain. She has noticed already a lot of improvement in the strength and sensation in her hands. Her biggest complaint is pain with swallowing, but she is able to swallow and is eating regular food. She walked with therapy. She is voiding independently. She would like to go home today. Review of Systems Review of Systems: All systems reviewed & are unremarkable except as noted in HPI and below Exam Narrative: AOx4 Incision c/d/i Good strength and sensation in arms and legs Objective Data Vital Signs Vital Signs: Vital Signs - 24 hr 12/10/23 15:00 12/10/23 15:15 12/10/23 15:30 Temperature 97.0 F L Pulse Rate 87 84 86 Respiratory Rate 14 16 16 Blood Pressure 139/83 148/83 H 152/87 H Pulse Oximetry 100 98 99 Oxygen Delivery Simple Face Mask Simple Face Mask Room Air Oxygen Flow Rate 6 6 12/10/23 15:45 12/10/23 16:00 12/10/23 15:48 Temperature 96.1 F L Pulse Rate 87 83 87 Respiratory Rate 12 12 15 Blood Pressure 140/68 140/86 147/76 H Pulse Oximetry 96 93 94 Oxygen Delivery Room Air Room Air Oxygen Flow Rate 12/10/23 16:03 12/10/23 16:33 12/10/23 18:29 Temperature 95.8 F L 96.7 F L Pulse Rate 89 86 Respiratory Rate 16 16 Blood Pressure 150/67 H 169/84 H Pulse Oximetry 95 99 Oxygen Delivery Room Air Oxygen Flow Rate 12/10/23 17:03 12/10/23 18:03 12/10/23 22:03 Temperature 98.1 F 98.6 F 98.1 F Pulse Rate 94 94 97 Respiratory Rate 18 18 18 Blood Pressure 154/82 H 130/94 H 172/76 H Pulse Oximetry 98 96 92 Oxygen Delivery Oxygen Flow Rate 12/10/23 19:56 12/11/23 02:03 12/11/23 06:03 Temperature 98.5 F 98.1 F Pulse Rate 80 70 Respiratory Rate 18 18 Blood Pressure 127/70 129/80 Pulse Oximetry 99 98 Oxygen Delivery Room Air Oxygen Flow Rate 12/11/23 08:17 12/11/23 10:24 12/11/23 12:21 Temperature 97.6 F 97.1 F L Pulse Rate 71 72 Respiratory Rate 14 14 Blood Pressure 137/67 149/73 H Pulse Oximetry 98 100 Oxygen Delivery Room Air Oxygen Flow Rate Intake/Output Intake/Output: Intake & Output 12/08/23 12/09/23 12/10/23 12/11/23 23:59 23:59 23:59 23:59 Intake Total 400 1470 Output Total 400 700 Balance 0 770 Meds/Results Medications: Active Medications Generic Name Dose Route Start Last Admin Trade Name Freq PRN Reason Stop Dose Admin Acetaminophen 1,000 mg 12/10/23 15:05 12/11/23 08:17 Acetaminophen 500 Mg Tablet PO 1,000 mg Q6H KD Administration Al Hydrox/Mg Hydrox/Simethicone 20 ml 12/10/23 15:03 Mag Hydrox/Al Hydrox/Simeth 30 Ml Udc PO Q4H PRN Indigestion/Heartburn Bisacodyl 10 mg 12/10/23 15:03 Bisacodyl 10 Mg Suppository RECTAL DAILY PRN Constipation Chlorthalidone 12.5 mg 12/11/23 09:00 12/11/23 08:17 Chlorthalidone 12.5 Mg Tab PO 12.5 mg QAM KD Administration Cyclobenzaprine HCl 10 mg 12/10/23 15:04 Cyclobenzaprine Hcl 10 Mg Tablet PO TID PRN Muscle Spasms Docusate Sodium 100 mg 12/10/23 21:00 12/11/23 08:17 Docusate Sodium 100 Mg Capsule PO 100 mg Q12HR KD Administration Cefazolin Sodium 2 gm in 50 mls @ 100 mls/hr 12/10/23 19:00 12/11/23 11:23 Ancef 2 Gm/D5w 50 Ml IVPB 12/11/23 18:59 100 mls/hr Q8H KD Administration Sodium Chloride 1,000 mls @ 100 mls/hr 12/10/23 15:05 12/11/23 03:22 Normal Saline Iv IV CONT 100 mls/hr .Q10H KD Administration Lisinopril 20 mg 12/11/23 09:00 10/17/24 08:17 Lisinopril 20 Mg Tablet BY MOUTH 20 mg DAILY KD Administration Ondansetron HCl 4 mg 12/10/23 15:03 On
== END 2023-12-11 14:15 | disposition home or self-care (01) ==
LOC: ANHSURGERY 10:10 → ANH2MED 17:23
PROVIDERS: PCP Nurse Practitioner Adult Health; Visit Provider Neurological Surgery
PROC: (CPT 63030; principal; 2023-12-10 12:00)
DX: M54.12 Radiculopathy, cervical region (principal); G95.9 Disease of spinal cord, unspecified; I10 Essential (primary) hypertension; F17.210 Nicotine dependence, cigarettes, uncomplicated; E66.9 Obesity, unspecified; Z68.37 Body mass index [BMI] 37.0-37.9, adult; Z79.891 Long term (current) use of opiate analgesic; Z98.890 Other specified postprocedural states; Z80.9 Family history of malignant neoplasm, unspecified
CPT/HCPCS: 22551; 22552; 22853 ×2; 36415; 86850; 86900; 86901; 97161; 97165; 97535; 99199; A9270; C1713; J0690; J1100; J1171; J2003; J2405; J2704; J3010; J7030; J7120

== ENCOUNTER 2024-01-28 12:45 | Outpatient (CLI) | payer MEDICARE, SELFPAY ==
--- NOTE | ~2024-01-28 | XR_ITS ---
[id number] Ordering provider: Wendi Schmitz MD History: . Z98.1 - Arthrodesis status, RIGHT SIDE ARM NUMBNESS . Comparison: July 02, 2023 FINDINGS: VERTEBRAL BODIES: Postoperative changes at the level of C5, C6 and C7. Rs,Normal height and alignment . No visible fracture or subluxation. The dens is intact. DISK SPACES: Disc spacers at the level of C5-C6 and C6-C7. Otherwise, Well maintained. Multilevel fac et joint disease. Multilevel uncovertebral joint osteoarthritic changes. PARASPINOUS SOFT TISSUES: No prevertebral soft tissue swelling. IMPRESSION: No acute osseous abnormality cervical spine. Consider follow up MRI of the cervical spine if patient has continued neck pain and if there is sarah rn for spinal stenosis. Reviewed, dictated and finalized at location A. STANT BUYER IMPRESSION: No acute osseous abnormality cervical spine. Consider follow up MRI of the cervical spine if patient has continued neck pain and if there is concern for spinal stenosis.
== END 2024-01-28 12:46 | disposition home or self-care (01) ==
PROVIDERS: PCP Nurse Practitioner Adult Health; Visit Provider Neurological Surgery
DX: R20.0 Anesthesia of skin (principal); Z98.1 Arthrodesis status
CPT/HCPCS: 72040

== ENCOUNTER 2024-01-29 10:59 | Outpatient (CLI) | payer MEDICARE, SELFPAY ==
--- NOTE | ~2024-01-29 | XR_ITS ---
Right Shoulder Technique: AP and scapular Y views were obtained. Clinical History: Pain Findings: No fracture or dislocation is seen. Osseous alignment is anatomic. The glenohumeral joint i s moderate degenerative change, with large inferomedial humeral head osteophyte. There is mild AC domi nt degenerative change. Soft tissues are unremarkable. Impression: Degenerative changes, as above. Reviewed, dictated and finalized at location . ITALITY INTERN Impression: Degenerative changes, as above.
== END 2024-01-29 11:00 | disposition home or self-care (01) ==
PROVIDERS: PCP Nurse Practitioner Adult Health; Visit Provider Neurological Surgery
DX: M19.011 Primary osteoarthritis, right shoulder (principal)
CPT/HCPCS: 73030

== ENCOUNTER 2024-03-25 12:55 | Outpatient (CLI) | payer MEDICARE, SELFPAY ==
--- NOTE | ~2024-03-25 | XR_ITS ---
EXAM: [id number] DATE: 03/25/2024 13:30 HISTORY: Z98.1 - Arthrodesis status, follow-up . COMPARISON: 01/28/2024. FINDINGS: ACDF hardware with interbody devices spanning C5-C7, no hardware fracture or abnormal perih ilar hardware lucency. Interbody devices remain in stable position. Craniocervical association and at lantoaxial joint are aligned. Moderate degenerative change at the atlantodental interval. No preverte bral soft tissue swelling. Vertebral bodies are aligned. Vertebral body heights are maintained. [place] l disc spaces. Multilevel moderate disc space narrowing and marginal osteophytosis. Multilevel severe facet and uncovertebral joint hypertrophy. IMPRESSION: Uncomplicated appearing ACDF hardware. Multilevel moderate cervical degenerative disc dis ease. Multilevel severe facet arthropathy. Reviewed, dictated and finalized at location K. FIC COORDINATOR IMPRESSION: Uncomplicated appearing ACDF hardware. Multilevel moderate cervical degenerative disc disease. Multilevel severe facet arthropathy.
--- OUTSIDE RECORDS SUMMARY | 2024-03-25 14:01 | XMS_ITS | Data Portability ---
Author Organization MD Hadley MANDUJANO [facility] Address [address] [place] [address] Assessment No assessment recorded. Plan of Treatment Reminders Order Date Submit Date Provider Last Modified By Organization Details Last Modified Time Details Appointments [facility]30A M ALFONZO SANDOVAL Not available Not available Not available Lab None recorded. Referral None recorded. Procedures None recorded. Surgeries None recorded. Imaging None recorded. Medication Orders None recorded. Patient TargetsNo targets recorded. Patient InstructionsNo instructions recorded. Reason for Referral None Reported. Problems Name Problem SNOMED Code Status Onset Date Resolution Date Notes Provider Name and Address Organization Details Recorded Time Essential hypertension 92448006 Active 2023 ALFONZO SANDOVAL [address] [address], [place], [address], [facility] 4 09:49:04 Arthritis 9297342 Active 2023 ALFONZO SANDOVAL [address] [address], [place], [address], [facility] 4 09:49:11 Problem Notes None recorded. Procedures Surgical History Date Name Laterality Status Provider Name and Address Organization Details Recorded Time Hysterectomy completed Celina Butcher [facility] 01/11/2024 09:41:21 cervical puncture completed Mariya Butcher [facility] 01/11/2024 09:42:27 Imaging Results None recorded. Procedure Notes None recorded. Medical Equipment None Reported. Allergies Allergen ID Allergen Name Allergen Category Reaction Reaction Severity Criticality Documentation Date Start Date Code Code System Note Provider Name and Address Organization Details Recorded Time 6054 codeine medicatio n Not available Not available Not available 01/11/2024 2670 RxNorm Celina camacho MD [facility] 09:40:58 6086 latex environme nt,medica tion Not available Not available Not available 01/11/2024 26478 91 RxNorm Celina camacho MD [facility] 09:41:06 Medications Name Sig Start Date Stop Date Status Note LastModified by Organization Details LastModified Time senna s 8.6-50mg tablets TAKE 1 TABLET BY MOUTH AT BEDTIME FOR CONSTIPAT ION 01/10 completed Not Available Not Available Not Available cyclobenzap rine 10 mg tablet TAKE 1 TABLET BY MOUTH THREE TIMES DAILY FOR 10 DAYS NEEDED FOR MUSCLE SPASMS 01/10 completed Not Available Not Available Not Available lisinopril 20 mg tablet TAKE 1 TABLET BY MOUTH EVERY DAY active Not Available Not Available No t Available chlorthalid one 25 mg tablet TAKE 1/2 TABLET BY MOUTH DAILY active Not Available Not Available No t Available tramadol 50 mg tablet TAKE 1 TABLET BY MOUTH EVERY 6 HOURS NEEDED FOR PAIN 01/10 completed Not Available Not Available Not Available baclofen 10 mg tablet TAKE 1 TABLET BY MOUTH TWICE DAILY NEEDED FOR MUSCLE SPASM 01/10 completed Not Available Not Available Not Available gabapentin 100 mg capsule TAKE 1 CAPSULE BY MOUTH TWICE DAILY active Not Available Not Available No t Available methylpredn isolone 4 mg tablets in a dose pack active Not Available Not Available Not Available celecoxib 100 mg capsule TAKE ONE CAPSULE BY MOUTH TWICE DAILY active Not Available Not Available No t Available oxycodone 5 mg tablet TAKE 1 TABLET BY MOUTH EVERY 6 HOURS NEEDED FOR PAIN 01/10 completed Not Available Not Available Not Available duloxetine 30 mg capsule,del ayed release TAKE ONE CAPSULE BY MOUTH DAILY FOR 14 DAYS THEN TO TWO CAPSULES BY MOUTH DAILY 01/10 completed Not Available Not Available Not Available Vitals Date Recorded Body height Body mass index (BMI) Body weight Provider Name and Address Organization Details Last Updated DateTime 01/11/2024 154.94 cm 37 kg/m2 22250.1 g KORNI BAKER, SRINIVAS-C [address] [facility] [address], [place], [id number] - [facility] 01/11/2024 09:51:22 Social History Question Answer Notes LastModified by Organizat ion Details LastModified Time How Is The Health Risk Assessment Being Completed? Phone Interview -1973 Information not available 01/11/2024 Who Is Answering The Questions? Member -1973 Information not available 01/11/2024 What Is Your Primary Language? Uruguayan Information no t available 01/11/2024 Are You Of , , Or Yakut Origin? No Information n ot available 01/11/2024 What Is Your Primary Race? Black/ -1973 Information not available 01/11/2024 Are You A ? No Inform ation not available 01/11/2024 If You Are A [place], Do You Get Health Care At The [place]? None Information not available 01/11/2024 If Yes, Please Provide The Name Of The [place] [facility] Or Address None Information not available 01/11/2024 What Is Your Marital Status? Information not available 01/11/2024 Name Of Primary Care Physician Lani Drummond Information not available 01/11/2024 Do You Have A Living Will? No Information not available 01/11/2024 Do You Have A POA? No Inform ation not available 01/11/2024 Do You Have An Advanced Directive? No Information not available 01/11/2024 Do You Have A Caregiver? No Information not available 01/11/2024 Caregiver Name And Phone Number None Information not available 01/11/2024 Do You Have A Health Care Proxy? No Information n ot available 01/11/2024 What Is Your Height? 5 Feet 1 Inches Information not available 01/11/2024 Do You Have Any Allergies Yes Information not available 01/11/2024 If Yes, Please List Your Allergies Latexcodeine Information not available 01/11/2024 How Many Prescription Drugs Do You Take? 1 To 5 Information not available 01/11/2024 How Many Days A Week Do You Normally Get 20 Minutes Or More Of Exercise/activity? 6-7 Days Information n ot available 01/11/2024 Do You Currently Suffer From Any Pain? (Chronic Or Acute) Yes Information not available 01/11/2024 On A Scale Of 1-5, How Do You Rate Your Pain? 4 Information not available 01/11/2024 Over The Past 7 Days, How Many Servings Of Fruits Or Vegetables Did You Eat Each Day? 2 Information no t available 01/11/2024 Are You On A Special Diet For Medical Or Personal Reason? No Information not available 01/11/2024 If You Are On A Special Diet Please Indicate What Type Of Diet: None Information n ot available 01/11/2024 Do You Currently Or Have You Ever Been Told You Have Asthma? No Information not available 01/11/2024 Do You Currently Or Have You Ever Been Told You Have Arthritis? Yes Information not available 01/11/2024 Type Of Arthritis None Informa tion not available 01/11/2024 Do You Currently Or Have You Ever Been Told You Have Cancer? No Information not available 01/11/2024 Type Of Cancer None Informatio n not available 01/11/2024 Do You Currently Or Have You Ever Been Told You Have Diabetes Type 1?? No Information no t available 01/11/2024 Do You Currently Or Have You Ever Been Told You Have Diabetes Type 2? No Information not available 01/11/2024 Do You Currently Or Have You Ever Been Told You Have A Heart Attack?? No Information not available 01/11/2024 Age Of Heart Attack None Information not available 01/11/2024 Do You Currently Or Have You Ever Been Told You Have Heart Failure? No Information not available 01/11/2024 Do You Currently Or Have You Ever Been Told You Have Heart Rhythm Issues? No Information not available 01/11/2024 Do You Currently Or Have You Ever Been Told You Have Vascular Disease? No Information no t available 01/11/2024 Type Of Vascular Disease None Information not available 01/11/2024 Do You Currently Or Have You Ever Been Told You Have High Cholesterol? No Information no t available 01/11/2024 Do You Currently Or Have You Ever Been Told You Have Kidney Disease? No Information not available 01/11/2024 Do You Currently Or Have You Ever Been Told You Have COPD? No Information not available 01/11/2024 Do You Currently Or Have You Ever Been Told You Have Other Lung Issues (Emphysema, Fibrosis)? No Information not available 01/11/2024 Do You Currently Or Have You Ever Been Told You Have Mental Health (anxiety, Depression, Bipolar, Schizophrenia, PTSD)? No Information not available 01/11/2024 Do You Currently Or Have You Ever Been Told You Have Neurological (Alzheimer's, Dementia, Parkinson's, Convulsions, MS)? No Information no t available 01/11/2024 Do You Currently Or Have You Ever Been Told You Have Currently ? No Information not available 01/11/2024 Do You Currently Or Have You Ever Been Told You Have A Stroke? No Information not available 01/11/2024 Do You Currently Or Have You Ever Been Told You Have Other? None Information not available 01/11/2024 How Many Times Have You Been Admitted To The Hospital In The Last 12 Months? 1-2 Times Information not available 01/11/2024 In General, Would You Say Your Health Is: Good Information not available 01/11/2024 Do You Have Any Hearing Problems For Which You Need Help Such As A Hearing Aid Or TTY? No Information not available 01/11/2024 Do You Have A Problem With Seeing Or Your Vision Which Requires Glasses/contacts? Yes Information no t available 01/11/2024 Do You Have Any Difficulty Walking Which Requires The Use Of A Cane, Walker, Or Wheelchair? No Information not available 01/11/2024 Do You Need Assistance Bathing? No Information not available 01/11/2024 Do You Need Assistance Transferring: Getting In And Out Of A Chair Or A Bed? No Information not available 01/11/2024 Do You Need Assistance Dressing: This Includes Taking Clothes Off And Putting Clothes On, Reaching Above Your Head, And Using Buttons And Zippers? No Information not available 01/11/2024 Do You Need Assistance Eating: This Includes Cutting Your Food And Opening Any Containers With Food Inside? No Information not available 01/11/2024 Do You Need Assistance Using The Bathroom: This Includes Pulling Clothes Up And Down, And Cleaning Yourself? No Information not available 01/11/2024 Do You Need Assistance Walking: Walking More Than 10 Feet Without Using A Walker, Cane, Or Holding Onto Furniture? No Information not available 01/11/2024 Do You Need Assistance Using The Phone? No Information not available 01/11/2024 Do You Need Assistance With Transportation? No Information not available 01/11/2024 Do You Need Assistance With Housework: This Includes Sweeping, Mopping, Changing Sheets, And Taking Out The Trash? No Information not available 01/11/2024 Do You Need Assistance With Laundry: This Includes Washing, Drying, Ironing, Folding Clothing, And House Items? No Information not available 01/11/2024 Do You Need Assistance With Making Your Meals: This Includes Cleaning Food, Cutting Foods, And Cooking? No Information not available 01/11/2024 Do You Need Assistance With Shopping: This Includes Getting Groceries And Other Items Needed For Your Home? No Information not available 01/11/2024 Do You Need Assistance With Medication Management: This Includes Taking Your Medications On Time, Getting Refills? No Information not available 01/11/2024 Do You Smoke Or Use Tobacco Products? Yes Information not available 01/11/2024 Do You Use Recreational Drugs? No Information not available 01/11/2024 How Many Alcoholic Drinks Do You Have In A Normal Week? 0 Information no t available 01/11/2024 Has The Lack Of Transportation Kept You From Medical Appointments, Meetings, Work Or From Getting Things Need For Daily Living? No Information not available 01/11/2024 Are You Worried Or Concerned That In The Next Two Months You May Not Have Stable Housing That You Own, Rent, Or Stay In As A Part Of A Household? No Information not available 01/11/2024 Do You Have Problems With Bug Infestation Where You Live? No Information not available 01/11/2024 Do You Have Problems With Mold Where You Live? No Information not available 01/11/2024 Do You Have Problems With Lead Pipes Where You Live? No API Information not available 01/11/2024 Do You Have Problems With No Solid Hand Rails Where You Live? No Information not available 01/11/2024 Do You Have Problems With An Oven Or Stove Not Working Where You Live? No Information not available 01/11/2024 Do You Have Problems With No Or Non-working Smoke Detectors Where You Live? No Information not available 01/11/2024 Do You Have Problems With Water Leaks Where You Live? No API Information not available 01/11/2024 Do You Have Problems With Loose Rugs Where You Live? No Information not available 01/11/2024 Do You Have Problems With No Or Not Working Carbon Monoxide Detector Where You Live? No Information not available 01/11/2024 Do You Have Problems With No Good Lighting In Walkways Where You Live? No Information not available 01/11/2024 Within The Last 12 Months Have You Worried That Your Food Would Run Out Before You Had Money To Buy More? Never True API Information n ot available 01/11/2024 With In The Last 12 Months, Did The Food You Bought Just Didn't Last And You Didn't Have Money To Get More? Never True Information not available 01/11/2024 Does Anyone, Including Friends And Family, Physically, Emotionally, Or Financially Try To Hurt You? No Information not available 01/11/2024 Over The Past 2 Weeks How Often Have You Sherborn Down, Depressed, Or Hopeless? Not At All Information not available 01/11/2024 Over The Past 2 Weeks How Often Have You Sherborn Little Interest Or Pleasure In Doing Things? Not At All Information not available 01/11/2024 During The Last 6 Months, Have You Experienced Any Stress? No Information not available 01/11/2024 During The Last 6 Months, Have You Experienced Any Anxiety? No Information not available 01/11/2024 During The Last 6 Months, Have You Experienced Any Loneliness? No Information not available 01/11/2024 During The Last 6 Months, Have You Experienced Any Fatigue? No Information not available 01/11/2024 Have You Had A Pap Smear (Cervical Cancer) In The Last 12 Months? N/A Information not available 01/11/2024 Have You Had A Mammogram In The Past 24 Months? No Information not available 01/11/2024 Have You Had A Bone Density And/or Osteoporosis Screening? Yes Information not available 01/11/2024 Have You Had A Prostate Exam? N/A Information not available 01/11/2024 Have You Had A Colorectal Cancer Screening? No Information not available 01/11/2024 What Type Of Colorectal Screening Have You Had? None Information not available 01/11/2024 Date Of Your Last Colorectal Screening: N/a Information not available 01/11/2024 Results Of Your Last Colorectal Screening: N/A Information not available 01/11/2024 Have You Had A Flu Vaccine In The Last Year? No Information not available 01/11/2024 Have You Had A Pneumonia Vaccine? No Information n ot available 01/11/2024 What Is Your Weight? 196 Information not available 01/11/2024 Sex: Unknown Functional Status None recorded. Mental Status None recorded. Family History Nothing Reported. Medical History No medical history recorded. Gynecological HistoryNo gynecological history recorded. Obstetrics History GPAL:G 0 P 0 0 0 0 Past Encounters Encounter ID Performer Location Encounter Start Date Encounter Closed Date Diagnosis/Indication Diagnosis SNOMED-CT Code Diagnosis ICD10 Code Diagnosis Note [id number] ALFONZO SANDOVAL [place] [address] [address] 01/11/2024 09:27:19 01/21/2024 10:58:55 Essential hypertension 71603716 I10 on chlorthali done and lisinopril , checks bp at home states around 130/80s, stable, follow up with pcp as recommende d Arthritis 8107809 M19.90 on celecoxib, stable, follow up with pcp as recommende d Obesity 308307136 E66.9 encouraged diet and excersie Health Concerns Section Related Observation LastModified by Organization Detai ls LastModified Time None Recorded Concern Status LastModified by Organization Details LastModified Time None Recorded Advance Directives Directive None Recorded Payers Encounter Date Sequence Insurance Name Policy Number Policy Guerrero Covered Member ID Guerrero Member ID Guarantor Name 01/11/2024 1 [facility] (MEDICARE REPLACEMENT/A DVANTAGE - HMO) [id number] Tracie Espinoza [id number] Tracie Espinoza Notes Date Note Type Note Provider Name and Address Organization Details Recorded Time 01/11/2024 text/html Member seen via televisit ALFONZO SANDOVAL [address] [address], [place], [address], - [facility] 01/11/2024 09:58:03 OBGyn Episode No OBEpisode recorded.
== END 2024-03-25 12:56 | disposition home or self-care (01) ==
PROVIDERS: PCP Nurse Practitioner Adult Health; Visit Provider Neurological Surgery
DX: M50.30 Other cervical disc degeneration, unspecified cervical region (principal); Z98.1 Arthrodesis status
CPT/HCPCS: 72040

== ENCOUNTER 2024-06-07 15:13 | Outpatient (CLI) | payer MEDICARE, SELFPAY ==
--- NOTE | ~2024-06-07 | MM_ITS ---
EXAMINATION: MM screening dariana BI w shira HISTORY: Screening TECHNIQUE: Craniocaudal and mediolateral oblique 3-D tomosynthesis images were obtained and synthetic 2-D images were generated. CAD analysis was submitted and interpreted. COMPARISON: No prior mammogram is available for comparison at this institution. 04/18/2021 BREAST PARENCHYMAL COMPOSITION: Not dense: There are scattered areas of fibroglandular density. FINDINGS: There is no evidence of suspicious mass, calcification, or architectural distortion to sugg est malignancy in either breast. There has been no suspicious interval change. IMPRESSION: 1. No mammographic evidence of malignancy. 2. Recommend routine screening mammography in one year. BI-RADS Category 1: Negative Reviewed, dictated and finalized at location B.
--- OUTSIDE RECORDS SUMMARY | 2024-06-07 17:15 | XMS_ITS | Data Portability ---
Author Organization MD Hadley MANDUJANO MA [facility] Address [address] [facility] [address] [place] [address] Assessment No assessment recorded. Plan of Treatment Reminders Order Date Submit Date Provider Last Modified By Organization Details Last Modified Time Details Appointments None record ed. Lab None record ed. Referral None record ed. Procedures None record ed. Surgeries None record ed. Imaging None record ed. Medication Orders None record ed. Patient Targets Encounter Date Encounter Id Patient Goals Patient Target Last Modified By Organization Details Last Modified Time walking for 30 minutes follow up with pcp as needed [id number] Not available 03/27/2024 11:34:38 Patient InstructionsNo instructions recorded. Reason for Referral None Reported. Problems Name Problem SNOMED Code Status Onset Date Resolution Date Notes Provider Name and Address Organization Details Recorded Time Essential hypertension 18824726 Active 2023 ALFONZO SANDOVAL [address], [address], [facility] 4 09:49:04 Nerve injury 06432973 Active 2024 ALFONZO SANDOVAL [address], [address], [facility] 11:29:49 Arthritis 7366664 Active 2024 ALFONZO SANDOVAL [address], [address], [facility] 11:30:02 Problem Notes None recorded. Procedures Surgical History Date Name Laterality Status Provider Name and Address Organization Details Recorded Time Hysterectomy completed Celina Butcher [facility] 01/11/2024 09:41:21 cervical puncture completed Mariya Cuellar MD [facility] 01/11/2024 09:42:27 Imaging Results None recorded. Procedure Notes None recorded. Medical Equipment None Reported. Allergies Allergen ID Allergen Name Allergen Category Reaction Reaction Severity Criticality Documentation Date Start Date Code Code System Note Provider Name and Address Organization Details Recorded Time 6085 codeine medicatio n Not available Not available Not available 01/11/2024 2670 RxNorm Celina camacho MD [facility] 09:40:58 6086 latex environme nt,medica tion Not available Not available Not available 01/11/2024 70029 91 RxNorm Celina camacho MD [facility] 09:41:06 Medications Name Sig Start Date Stop [...] 4 mg tablets in a dose pack 03/27 completed Not Available Not Available Not Available celecoxib [...] and Address Organization Details Last Updated DateTime 03/27/2024 154.94 cm 37.8 kg/m2 93060.47 g KORIN BAKER NP-C [address] [facility] [address], [place], [address], [facility] 03/27/2024 11:30:52 Date Recorded Body height Body mass index (BMI) Body weight Provider Name and Address Organization Details Last Updated DateTime 01/11/2024 154.94 cm 37 kg/m2 37967.1 g KORIN BAKER NP-C [address] [facility] [address], [place], [address], [facility] 01/11/2024 09:51:22 Social History Question Answer Notes LastModified by Organizat ion Details LastModified Time How Is The Health Risk Assessment Being Completed? Phone Interview -1973 Information not available 01/11/2024 Who Is Answering The Questions? Member -1973 Information not available 01/11/2024 What Is Your Primary Language? Emirati -1973 Information no t available 01/11/2024 Are You Of , , Or Sami Origin? Yes -1973 Information n ot available 03/27/2024 What Is Your Primary Race? Black/ -1973 Information not available 01/11/2024 Are You A ? No Inform ation not available 01/11/2024 If You Are A , Do You Get Health Care At The [place]? None -1973 Information not available 01/11/2024 If Yes, Please Provide The Name Of The [facility] Or Address None -1973 Information not available 01/11/2024 What Is Your Marital Status? Single API-1973 Information not available 03/27/2024 Name Of Primary Care Physician Earnest Drummond -1973 Information not available 03/27/2024 Do You Have A Living Will? No API-1973 Information not available 01/11/2024 Do You Have A POA? No Inform ation not available 01/11/2024 Do You Have An Advanced Directive? No -1973 Information not available 01/11/2024 Do You Have [...] 1-5, How Do You Rate Your Pain? 3 Information not available 03/27/2024 Over The Past 7 Days, How Many Servings Of Fruits Or Vegetables Did You Eat Each Day? 1 Information no t available 03/27/2024 Are You On A Special Diet For [...] General, Would You Say Your Health Is: Fair Information not available 03/27/2024 Do You Have Any Hearing Problems For [...] Do You Smoke Or Use Tobacco Products? No Information not available 03/27/2024 Do You Use Recreational Drugs? No Information [...] With Lead Pipes Where You Live? No Information not available [...] With Water Leaks Where You Live? No Information not available [...] Had Money To Buy More? Never True Information n ot available 01/11/2024 With In The Last 12 Months, Did The Food You Bought Just Didn't Last And You Didn't Have Money To Get More? Never True Information not available 01/11/2024 Does Anyone, Including Friends And Family, Physically, Emotionally, Or Financially Try To Hurt You? No Information not available 01/11/2024 Over The Past 2 Weeks How Often Have You [place] Down, Depressed, Or Hopeless? Not At All Information not available 01/11/2024 Over The Past 2 Weeks How Often Have You [place] Little Interest Or Pleasure In Doing Things? [...] (Cervical Cancer) In The Last 12 Months? No Information not available 03/27/2024 Have You Had A Mammogram In The Past 24 Months? No Information not available 01/11/2024 Have You Had A Bone Density And/or Osteoporosis Screening? No Information not available 03/27/2024 Have You Had A Prostate Exam? N/A [...] ot available 01/11/2024 What Is Your Weight? 200 Information not available 03/27/2024 Sex: Unknown Functional Status None recorded. Mental Status None recorded. Family History Nothing Reported. Medical History No medical history recorded. Gynecological HistoryNo gynecological history recorded. Obstetrics History GPAL:G 0 P 0 0 0 0 Past Encounters Encounter ID Performer Location Encounter Start Date Encounter Closed Date Diagnosis/Indication Diagnosis SNOMED-CT Code Diagnosis ICD10 Code Diagnosis Note [id number] [facility] [address] [facility] [address] [place] [address] 01/11/2024 09:27:19 01/21/2024 10:58:55 Essential hypertension 27050706 I10 on chlorthali done and lisinopril , checks bp at home states around 130/80s, stable, follow up with pcp as recommende d Arthritis 9095575 M19.90 on celecoxib, stable, follow up with pcp as recommende d Obesity 414604190 E66.9 encouraged diet and excersie [id number] [facility] [address] [facility] [address] [place] [address] 03/27/2024 11:06:26 04/06/2024 17:16:02 Essential hypertension 84451308 I10 on chlorthali done and lisinopril , checks bp at home states around 130/80s, stable, follow up with pcp as recommende d Arthritis 4984781 M19.90 on celecoxib, stable, follow up with pcp as recommende d Obesity 300310446 E66.9 encouraged diet and walking for 30 minutes a day Nerve injury 96591699 T1 4.8XXA seeing a doctor, needs to have surgery, takes otc pain meds Health Concerns Section Related Observation LastModified by Organization Detai ls LastModified Time None Recorded Concern Status LastModified by Organization Details LastModified Time None Recorded Advance Directives Directive None Recorded Payers Encounter Date Sequence Insurance Name Policy Number Policy Guerrero Covered Member ID Guerrero Member ID Guarantor Name 01/11/2024 1 [facility] (MEDICARE REPLACEMENT/A DVANTAGE - HMO) [id number] Tracie Espinoza [id number] Tracie Espinoza 03/27/2024 1 [facility] (MEDICARE REPLACEMENT/A DVANTAGE - HMO) [id number] Tracie Espinoza [id number] Tracie Espinoza Notes Date Note Type Note Provider Name and Address Organization Details Recorded Time 01/11/2024 text/html Member seen via televisit ALFONZO SANDOVAL [address] [facility] [address], [place], [address], [place] - [facility] 01/11/2024 09:58:03 03/27/2024 text/html Member seen televisit ALFONZO SANDOVAL [address] [address], [place], [address], MD Hadley ALBA [facility] 03/27/2024 11:37:05 OBGyn Episode No OBEpisode recorded.
--- OUTSIDE RECORDS SUMMARY | 2024-06-07 17:15 | XMS_ITS | Clinical Summary ---
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 Gender Identity Not on file Sexual Orientation Not on file Plan of Treatment Upcoming Encounters Date Type Department Care Team (Late st Contact Info) Description 08/13/2024 9:40 AM CDT Office Visit [facility] - [address], [address] [place] [phone] Ángela Mccarthy NP [address] [facility] [address] [place] [address] Health Maintenance Due Date Last Done Comments Colorectal Cancer Screening Colonoscopy (10 Years) 1955 Hepatitis C 11/28/1973 DTaP, Tdap and Td Vaccines ( 1 - Tdap) 11/28/1974 Mammogram Screening 1995 Zoster Vaccines (1 of 2) 11/28/2005 Dexa Scan (General) 11/28/2020 Pneumococcal Vaccine: 50+ Ye ars (1 of 1 - PCV) 11/28/2020 COVID-19 Vaccine ( - 2023-2 5 season) 2023 PHQ-2 (Physician [place]) 02/25/2024 RSV Immunization or 60+ Years (1 - 1-dose 75+ series) 11/28/2030 Meningococcal B Vaccine Aged Out No l onger eligible based on patient's age to complete this topic Meningococcal Vaccine Aged Out No palmira kelley eligible based on patient's age to complete this topic RSV Immunizations Under 20 Months Aged Out No longer eligible based on patient's age to complete this topic Care Teams Food Chemist Relationship Specialty Start Date End Date Ilia Sanford MD [address] [place] [address] PCP - General FAMILY PRACTICE 04/19/24
== END 2024-06-07 15:14 | disposition home or self-care (01) ==
LOC: ANHIMG 15:14
PROVIDERS: PCP Nurse Practitioner Adult Health; Visit Provider Nurse Practitioner Adult Health
DX: Z12.31 Encounter for screening mammogram for malignant neoplasm of breast (principal)
CPT/HCPCS: 77063; 77067

== ENCOUNTER → 2024-06-23 10:03 | Day surgery (SDC) | payer MEDICARE, SELFPAY ==
[2024-06-14 09:51] VITALS: BMI 36.9
--- OUTSIDE RECORDS SUMMARY | 2024-06-23 00:39 | XMS_ITS | Data Portability ---
Author Organization MD Hadley MANDUJANO MA [facility] Address [address] [facility] [address] [place] [address] Assessment No assessment recorded. Plan of Treatment [...] minutes follow up with pcp as needed Not available 03/27/2024 11:34:38 Patient InstructionsNo instructions recorded. Reason for Referral None Reported. Problems Name Problem SNOMED Code Status Onset Date Resolution Date Notes Provider Name and Address Organization Details Recorded Time Essential hypertension 36151750 Active 2023 ALFONZO SANDOVAL [address], [address], [facility] 4 09:49:04 Nerve injury 25789144 Active 2024 ALFONZO SANDOVAL [address] [address], [place], [address], [facility] 11:29:49 Arthritis 7569390 Active 2024 ALFONZO SANDOVAL [address], [address], [facility] 11:30:02 Problem Notes None recorded. Procedures Surgical History Date Name Laterality Status Provider Name and Address Organization Details Recorded Time Hysterectomy completed Celina Butcher [facility] 01/11/2024 09:41:21 cervical puncture completed Mariya Cuellar MD [facility] 01/11/2024 09:42:27 Imaging Results None recorded. Procedure Notes None recorded. Medical Equipment None Reported. Allergies Allergen ID Allergen Name Allergen Category Reaction Reaction Severity Criticality Documentation Date Start Date Code Code System Note Provider Name and Address Organization Details Recorded Time 6085 codeine medicatio n Not available Not available Not available 01/11/2024 2670 RxNorm Celina camacho MD [facility] 09:40:58 6086 latex environme nt,medica tion Not available Not available Not available 01/11/2024 34438 91 RxNorm Celina camacho MD [facility] 09:41:06 Medications Name Sig Start Date [...] Updated DateTime 03/27/2024 154.94 cm 37.8 kg/m2 54421.47 g KORIN BAKER NP-C [address] [facility] [address], [place], [address], [facility] 03/27/2024 11:30:52 Date Recorded Body height Body mass index (BMI) Body weight Provider Name and Address Organization Details Last Updated DateTime 01/11/2024 154.94 cm 37 kg/m2 41478.1 g KORIN BAKER NP-C [address] [facility] [address], [place], [address], [facility] 01/11/2024 09:51:22 Social History Question Answer Notes LastModified by Organizat ion Details LastModified Time How Is The Health Risk Assessment Being Completed? Phone Interview -1973 Information not available 01/11/2024 Who Is Answering The Questions? Member -1973 Information not available 01/11/2024 What Is Your Primary Language? Equatorial Guinean -1973 Information no t available 01/11/2024 Are You Of , , Or English Origin? Yes -1973 Information n ot available 03/27/2024 What Is Your Primary Race? Black/ -1973 Information not available 01/11/2024 Are You A ? No Inform ation not available 01/11/2024 If You Are A , Do You Get Health Care At The [place]? None -1973 Information not available 01/11/2024 If Yes, Please Provide The Name Of The [place] [facility] Or Address None -1973 Information not [...] Past 2 Weeks How Often Have You [place] Down, Depressed, Or Hopeless? Not At All Information not available 01/11/2024 Over The Past 2 Weeks How Often Have You [place] Little Interest Or Pleasure In Doing Things? [...] SNOMED-CT Code Diagnosis ICD10 Code Diagnosis Note [id number] ALFONZO SANDOVAL [facility] [address] [facility] [address] [place] [address] 01/11/2024 09:27:19 01/21/2024 10:58:55 Essential hypertension 37169203 I10 on chlorthali done and lisinopril , checks bp at home states around 130/80s, stable, follow up with pcp as recommende d Arthritis 0861797 M19.90 on celecoxib, stable, follow up with pcp as recommende d Obesity 468528974 E66.9 encouraged diet and excersie [id number] ALFONZO SANDOVAL [facility] [address] [facility] [address] [place] [address] 03/27/2024 11:06:26 04/06/2024 17:16:02 Essential hypertension 69653497 I10 on chlorthali done and lisinopril , checks bp at home states around 130/80s, stable, follow up with pcp as recommende d Arthritis 1718197 M19.90 on celecoxib, stable, follow up with pcp as recommende d Obesity 263150990 E66.9 encouraged diet and walking for 30 minutes a day Nerve injury 02443279 T1 4.8XXA seeing a doctor, needs to have surgery, takes otc pain meds Health Concerns Section Related Observation LastModified by Organization Detai ls LastModified Time None Recorded Concern Status LastModified by Organization Details LastModified Time None Recorded Advance Directives Directive None Recorded Payers Encounter Date Sequence Insurance Name Policy Number Policy Guerrero Covered Member ID Guerrero Member ID Guarantor Name 01/11/2024 1 [facility] (MEDICARE REPLACEMENT/A DVANTAGE - HMO) [id number] Tracie Espinoza [id number] Tracie Espinoza 03/27/2024 1 [facility] (MEDICARE REPLACEMENT/A DVANTAGE - HMO) [id number] Tracie Espinoza [id number] Tracie Espinoza Notes Date Note Type Note Provider Name and Address Organization Details Recorded Time 01/11/2024 text/html Member seen via televisit ALFONZO SANDOVAL [address] [facility] [address], [place], [address], MD - [facility] 01/11/2024 09:58:03 03/27/2024 text/html Member seen televisit ALFONZO SANDOVAL [address] [address], [place], [address], MD Hadley ALBA [facility] 03/27/2024 11:37:05 OBGyn Episode No OBEpisode recorded.
--- OUTSIDE RECORDS SUMMARY | 2024-06-23 00:39 | XMS_ITS | Clinical Summary ---
Author Organization [facility] Address [address] [place] [address] Care Team Providers Care Manager Basketball Name Role Phone Ilia Sanford MD Primary Care Provider [phone] Encounters Date Type Department Care Team Description 06/16/2024 Results Follow-Up [facility] - [address], [address] [place] [address] Duc Blount MD NCVS/EMG ([facility]) 06/15/2024 11:00 AM CDT Office Visit [address], [address] [place] [address] None, Provider, Duc Pace MD Numbness 06/15/2024 Scan Image Insight INFO SRVCS Scanned, [facility] EMG (SCAN) 06/15/[address], [address] [place] [address] Duc Blount MD Referral 06/15/2024 Travel from Last 3 Months Social History Tobacco Use Types Packs/Day Years Used Date Smoking Tobacco: Never Assessed Comments Unknown Sex and Gender Information Value Date Recorded Sex Assigned at Not on file 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 Gender Identity Not on file Sexual Orientation Not on file Plan of Treatment Health Maintenance Due Date Last Done Comments Colorectal Cancer Screening Colonoscopy (10 Years) 1955 Hepatitis C 11/28/1973 Mammogram Screening 1995 Zoster Vaccines (1 of 2) 11/28/2005 Annual Medicare Wellness Visit 11/28/2020 Dexa Scan (General) 11/28/2020 Pneumococcal Vaccine: 50+ Years (2 of 2 - PCV) 12/05/2021 12/05/2020 COVID-19 Vaccine (4 - 2023-2 5 season) 2023 03/17/2021, 06/28/2020, 06/07/2020 PHQ-2 (Physician [place]) 02/25/2024 RSV Immunization or 60+ Years (1 - 1-dose 75+ series) 11/28/2030 DTaP, Tdap and Td Vaccines ( 2 - Td or Tdap) 12/05/2030 12/05/2020 Meningococcal B Vaccine Aged Out No l onger eligible based on patient's age to complete this topic Meningococcal Vaccine Aged Out No palmira kelley eligible based on patient's age to complete this topic RSV Immunizations Under 20 Months Aged Out No longer eligible b ased on patient's age to complete this topic Procedures Procedure Name Priority Date/Time Associated Diagnosis Comments EMG Routine 06/15/2024 11:00 AM CDT Numbness and tingling of both upper extremities EMG GENERIC (SCAN ORDER) 06/15/2024 from Last 3 Months Results * NCVS/EMG ([facility]) (06/15/2024 11:00 AM CDT) Narrative [facility] - 06/15/2024 11:00 AM CDT Duc Blount MD 06/15/2024 11:55 PM .Brief history: Ms. Espinoza has numbness and tingling in the hand bilaterally right worse than left. It is worse with activity. She notes previous C-spine surgery. Postsurgery, her neck range of movement has improved, balance has improved. She has also noticed significant improvement in numbness and tingling in the left hand, however symptoms in the right hand persist. Limited Neurological Exam: Strength in the upper limb bilaterally is 5 out of 5. Initially she had 2+ bilaterally. Sepulveda's is negative. Tinel sign at the wrist and elbow are negative. Electrodiagnostic testing: For sensory nerve conduction studies, the amplitude is measured [id number], the latency reported is the distal peak latency, and the conduction velocity, if measured, is determined from onset latencies and is over the forearm. For motor nerve conduction studies, the amplitude is measured [id number], the latency reported is the distal onset latency, the conduction velocity is calculated over the forearm, and the F wave latency is the minimum latency. Unless otherwise noted, the hand temperature was monitored continuously and remained between 32 C and 36 C during the performance of the NCSs.The study was performed with a concentric needle electrode. Fibrillation and fasciculation activity is graded from none (0) to continuous (4+). The configuration and recruitment pattern of motor unit action potentials under voluntary control, if not normal, are described below. Abbreviations: NCS= nerve conduction study SNAP= sensory nerve action potential CMAP= compound muscle action potential MUP= motor unit potential EMG= electromyogram F IBS= fibrillations PS W's= positive sharp waves .CTS severity scale: mild: prolonged sensory nerve conduction latency, normal distal motor latency; moderate: prolonged sensory latency and prolonged distal motor latency; severe: absent sensory latency, prolonged distal motor latency Ostrander ROOPA. A neurophysiological grading scale for carpal tunnel syndrome. Muscle Nerve. 1999;23(8):1280-3. Summary of findings: Bilateral median and ulnar motor NCS is normal Bilateral median and ulnar sensory NCS is normal Bilateral radial sensory NCS is normal Bilateral median orthodromic mixed NCS shows prolonged latency with small amplitude Bilateral ulnar orthodromic mixed NCS shows prolonged latency and small amplitude Needle EMG of the right upper limb is normal Conclusion: This study shows evidence of a mild right median mononeuropathy at the wrist [carpal tunnel syndrome]. There is also a incidentally noted mild left median mononeuropathy at the wrist . There is no evidence of a superimposed cervical radiculopathy. Nerve conduction and EMG is an extension of history and examination. Clinical correlation is recommended for the electrodiagnostic findings. us Duc Blount MD NEUROLOGY ORDERABLES Sherry astorga Result [facility] [address] [place] [address], * EMG GENERIC (SCAN ORDER) (06/15/2024) 06/15/2024 us [facility] Scanned SCANNING Final Resu lt from Last 3 Months Insurance [facility] [place] [id number] Care Teams Manager Basketball Relationship Specialty Start Date End Date Ilia Sanford MD [address] [place] [address] PCP - General FAMILY PRACTICE 04/19/24
--- OUTSIDE RECORDS SUMMARY | 2024-06-23 00:39 | XMS_ITS | Encounter Summary ---
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 Gender Identity Not on file Sexual Orientation Not on file documented as of this encounter Plan of Treatment Not on file documented as of this encounter Procedures Procedure Name Priority Date/Time Associated Diagnosis Comments EMG GENERIC (SCAN ORDER) 06/15/2024 documented in this encounter Results * EMG GENERIC (SCAN ORDER) (06/15/2024) 06/15/2024 us Doc Med Group Scanned SCANNING Final Resu lt documented in this encounter Visit Diagnoses Not on filedocumented in this encounter Care Teams Colon Therapist Relationship Specialty Start Date End Date Ilia Sanford MD [address] [place] [id number] PCP - General FAMILY PRACTICE 04/19/24 documented as of this encounter
[2024-06-23 09:17] VITALS: BP 146/84; PULSE 80; RESP 18; TEMP 36.9; O2SAT 100
--- NOTE | 2024-06-23 13:40 | SUR.PREOP ---
09: PT STATES SHE ATE A SUBWAY SANDWICH MEAL WITH CHIPS YESTERDAY AT 2:00PM, FOLLOWED BY CLEAR LIQUIDS AND HER BOWEL PREP YESTERDAY AFTERNOON AND EVENING. PT STATES STOOLS ARE THICKER LIQUID DARK BROWN. DR JACKSON NOTIFIED AND NEW ORDER RECEIVED TO CANCEL PATIENT TODAY AND RESCHEDULE FOR TOMORROW. PT NOTIFIED AND STATES UNDERSTANDING. PT RESCHEDULED AND INSTRUCTED TO DRINK ANOTHER 64 OZ OR MIRALAX PREP MIXTURE AT 5:00PM TODAY AND ONLY CLEAR LIQUIDS UNTIL MIDNIGHT, NOTHING BY MOUTH AFTER MIDNIGHT, AND TO BE HERE AT HOSPITAL FOR HER 12:00 PROCEDURE TOMORROW , PT STATES UNDERSTANDING.
--- OUTSIDE RECORDS SUMMARY | 2024-09-02 10:08 | XMS_ITS | Clinical Summary ---
Author Organization [facility] Address [address] [place] [address] Care Team Providers Care Application Operations Engineer Name Role Phone Ilia Sanford MD Primary Care Provider [phone] Encounters Date Type Department Care Team Description 06/16/2024 Results Follow-Up [facility] - [address], [address] [place] [phone] Duc Blount MD NCVS/EMG ([place]) 06/15/2024 11:00 AM CDT Office Visit [address], [address] [place] [phone] None, Provider, Duc Pace MD Numbness 06/15/2024 Scan [place] INFO SRVCS Scanned, Doc Med Group EMG (SCAN) 06/15/[address], [address] [place] [phone] Duc Blount MD Referral 06/15/2024 Travel from Last 3 Months Social History Tobacco Use Types Packs/Day Years Used Date Smoking Tobacco: Never Assessed Comments Unknown Sex and Gender Information Value Date Recorded Sex Assigned at Not on file Legal Sex Female 2:44 PM UAT TESTER Gender Identity Not on file Sexual Orientation [...] season) 2023 03/17/2021, 06/28/2020, 06/07/2020 PHQ-2 (Physician [place]) 02/25/2024 RSV Immunization or 60+ Years (1 [...] (06/15/2024 11:00 AM CDT) Narrative [facility] - 06/15/2024 11:00 AM CDT [...] nerve conduction studies, the amplitude is measured [id number], the latency reported is the distal peak latency, and the conduction velocity, if measured, is determined from onset latencies and is over the forearm. For motor nerve conduction studies, the amplitude is measured [id number], the latency reported is the distal onset [...] absent sensory latency, prolonged distal motor latency [place] ROOPA. A neurophysiological grading scale for carpal [...] NEUROLOGY ORDERABLES Sherry astorga Result [facility] [address] [place] [address], * EMG GENERIC (SCAN ORDER) (06/15/2024) 06/15/2024 us Doc Med Group Scanned SCANNING Final Resu lt from Last 3 Months Insurance [facility] DANIELA SON [id number] Care Teams Application Operations Engineer Relationship Specialty Start Date End Date Ilia Sanford MD [address] [place] [address] PCP - General FAMILY PRACTICE 04/19/24
--- OUTSIDE RECORDS SUMMARY | 2024-09-02 10:08 | XMS_ITS | Data Portability ---
Author Organization MD Hadley MANDUJANO [facility] Address [address] [facility] [address] [place] [address] Assessment No assessment recorded. Plan of Treatment [...] Modified By Organization Details Last Modified Time 03/27/2024 [id number] walking for 30 minutes follow up with pcp as needed [email or web address] Not available 03/27/2024 11:34:38 Patient InstructionsNo instructions recorded. Reason for Referral None Reported. Problems Name Problem SNOMED Code Status Onset Date Resolution Date Notes Provider Name and Address Organization Details Recorded Time Essential hypertension 43987328 Active 2023 ALFONZO SANDOVAL [address], 1, [place] ALBACODY MANDUJANO [facility] 4 09:49:04 Nerve injury 37603804 Active 2024 ALFONZO SANDOVAL [address], 1, [place] ALBACODY MANDUJANO [facility] 5 11:29:49 Arthritis 9883207 Active 2024 ALFONZO SANDOVAL [address] [address], [place], 1, [place] ALBACODY MANDUJANO [facility] 5 11:30:02 Problem Notes None recorded. Procedures Surgical History Date Name Laterality Status Provider Name and Address Organization Details Recorded Time Hysterectomy completed Celina Cuellar MD [facility] 01/11/2024 09:41:21 cervical puncture completed Mariya Cuellar MD [facility] 01/11/2024 09:42:27 Imaging Results None recorded. Procedure Notes None recorded. Medical Equipment None Reported. Allergies Allergen ID Allergen Name Allergen Category Reaction Reaction Severity Criticality Documentation Date Start Date Code Code System Note Provider Name and Address Organization Details Recorded Time 6085 codeine medicatio n Not available Not available Not available 01/11/2024 2670 RxNorm Celina camacho MD [facility] 09:40:58 6086 latex environme nt,medica tion Not available Not available Not available 01/11/2024 13158 91 RxNorm Celina camacho MD [facility] 09:41:06 Medications Name Sig Start Date Stop [...] Updated DateTime 03/27/2024 154.94 cm 37.8 kg/m2 96406.47 g KORIN BAKER, WORD PROCESSING OPERATOR-C [address] [facility] [address], [place], [address], [facility] 03/27/2024 11:30:52 Date Recorded Body height Body mass index (BMI) Body weight Provider Name and Address Organization Details Last Updated DateTime 01/11/2024 154.94 cm 37 kg/m2 13965.1 g KORIN BAKER, WORD PROCESSING OPERATOR-C [address] [facility] [address], [place], [address], [facility] 01/11/2024 09:51:22 Social History Question Answer Notes LastModified by Organizat ion Details LastModified Time How Is The Health Risk Assessment Being Completed? Phone Interview -1973 Information not available 01/11/2024 Who Is Answering The Questions? Member -1973 Information not available 01/11/2024 What Is Your Primary Language? Wolof Information no t available 01/11/2024 Are You Of , , Or Scottish Origin? Yes Information n ot available 03/27/2024 What Is Your Primary Race? Black/ -1973 Information not available 01/11/2024 Are You A ? No Inform ation not available 01/11/2024 If You Are A , Do You Get Health Care At The [place]? None Information not available 01/11/2024 If Yes, Please Provide The Name Of The [place] [facility] Or Address None Information not available 01/11/2024 What Is Your Marital Status? Single -1973 Information not available 03/27/2024 Name Of Primary [...] Past 2 Weeks How Often Have You [place] Down, Depressed, Or Hopeless? Not At All Information not available 01/11/2024 Over The Past 2 Weeks How Often Have You [place] Little Interest Or Pleasure In Doing Things? [...] SNOMED-CT Code Diagnosis ICD10 Code Diagnosis Note [id number] ALFONZO SANDOVAL [facility] [address] [facility] [address] [place] [phone] 01/11/2024 09:27:19 01/21/2024 10:58:55 Essential hypertension 64747899 I10 on chlorthali done and lisinopril , checks bp at home states around 130/80s, stable, follow up with pcp as recommende d Arthritis 9068464 M19.90 on celecoxib, stable, follow up with pcp as recommende d Obesity 879088008 E66.9 encouraged diet and excersie [id number] ALFONZO SANDOVAL [facility] [address] [facility] [facility] [address] [place] [address] 03/27/2024 11:06:26 04/06/2024 17:16:02 Essential hypertension 85756934 I10 on chlorthali done and lisinopril , checks bp at home states around 130/80s, stable, follow up with pcp as recommende d Arthritis 1247487 M19.90 on celecoxib, stable, follow up with pcp as recommende d Obesity 877698580 E66.9 encouraged diet and walking for 30 minutes a day Nerve injury 17345684 T1 4.8XXA seeing a doctor, needs to have surgery, takes otc pain meds Health Concerns Section Related Observation LastModified by Organization Detai ls LastModified Time None Recorded Concern Status LastModified by Organization Details LastModified Time None Recorded Advance Directives Directive None Recorded Payers Insurance Date Sequence Insurance Name Policy Number Policy Guerrero Covered Member ID Guerrero Member ID Guarantor Name 04/06/2024 1 [employer] (MEDICARE REPLACEMENT/A DVANTAGE - HMO) [id number] Tracie Espinoza [id number] Tracie Espinoza Notes Date Note Type Note Provider Name and Address Organization Details Recorded Time 01/11/2024 text/html Member seen via televisit ALFONZO SANDOVAL [address] [address], [place], [phone], [facility] 01/11/2024 09:58:03 03/27/2024 text/html Member seen televisit ALFONZO SANDOVAL [address] [id number], [facility] , [address], - [facility] 03/27/2024 11:37:05 OBGyn Episode No OBEpisode recorded.
== END ==
PROVIDERS: PCP Nurse Practitioner Adult Health; Referring Provider Nurse Practitioner Adult Health; Visit Provider Internal Medicine Gastroenterology
PROC: 0DJD8ZZ Inspection of Lower Intestinal Tract, Via Natural or Artificial Opening Endoscopic (ICD-10-PCS; CPT 45378; principal; 2024-06-23 15:30)
DX: Z12.11 Encounter for screening for malignant neoplasm of colon (principal); Z53.09 Procedure and treatment not carried out because of other contraindication
CPT/HCPCS: 99211; G0463

== ENCOUNTER 2024-06-24 01:52 | Day surgery (SDC) | payer MEDICARE, SELFPAY ==
--- NOTE | 2024-06-23 14:33 | P.PNAN_ITS ---
Anes - Initial Pre Proc Eval Procedure: Operation Date: 06/24/24 12:00 Proposed Procedures p Screening Colonoscopy - Guerrero Casillas MD Date/Time: 06/23/24 14:33 Surgeon: Guerrero Casillas MD Pre Op Diagnosis: screening Patient Data Age: 68 Gender: F Height: Weight: Allergies Allergy/AdvReac Type Severity Reaction Status Date / Time latex Allergy Intermediate Itching Verified 06/24/24 10:46 codeine AdvReac Mild Headache, Verified 06/24/24 10:46 N/V Home Medications ?Medication ?Instructions ?Recorded ?Confirmed ?Type chlorthalidone 25 mg tablet See Rx Instructions .Route 05/27/24 06/24/24 Rx .COMPLEX #45 tabs lisinopril 20 mg tablet See Rx Instructions .Route 05/31/24 06/24/24 Rx .COMPLEX #90 tabs celecoxib 100 mg capsule See Rx Instructions .Route 06/03/24 06/24/24 Rx .COMPLEX #60 caps gabapentin 100 mg capsule See Rx Instructions .Route 06/21/24 06/24/24 Rx .COMPLEX #60 caps Patient hx anesthesia problems: none Family hx anesthesia problems: none Results Review: All pre-operative results and documents have been reviewed as part of the pre- operative evaluation. [facility] Past Medical History Medical History Shoulder pain, left Cervical myelopathy Arthritis Surgical History Surgical History History of cervical discectomy Right carpal tunnel syndrome Right carpal tunnel release June 24, 2022 History of carpal tunnel surgery of left wrist May 27, 2022 Cubital tunnel syndrome on left Left ulnar nerve decompression May 27, 2022 History of hysterectomy 2015, Dr. Quinones Family History Family History Father Hypertension Mother Hypertension Cancer Asthma Sibling No problems noted. Grandparent Cancer Diabetes mellitus Other Family history of arthritis Family history of cancer Social History Social History Smoking packs per day: 0.5 Smoking cigarettes per day: 10.0 Years smoked: 30 Smoking pack-years: 15.00 Smoking status: Current every day smoker Tobacco type: cigarettes Second hand tobacco smoke exposure: Yes Additional smoking assessment comments: CURRENTLY SMOKES 4 CIGARETTES PER DAY Alcohol intake: never Substance use: never Substance use type: does not use Do You Feel Safe in your Home?: Yes Lack of Transportation: No Lack of Food: Never True Current Housing: I Have Housing Concerned About Future Housing: No Difficulty Paying Gas/Electric Bills: No Difficulty Paying for Meds: No Currently Unemployed: No Education: High School Diploma/GED Difficulty w/ Childcare or Family Care: No Living arrangements: with family Additional living arrangements comments: PT LIVES WITH TIMO MELENDEZ Occupation/Education: occupation 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 Informed Consent: The patient's anesthetic plan and its attendant risks and benefits were discussed with the patient/family/POA. Questions were solicited and answers provided to the satisfaction of the patient/family/POA.
--- OUTSIDE RECORDS SUMMARY | 2024-06-24 01:54 | XMS_ITS | Data Portability ---
Author Organization MD Hadley MANDUJANO MA [facility] Address [address] [address] [place] [address] Assessment No assessment recorded. Plan of Treatment [...] minutes follow up with pcp as needed [email or web address] Not available 03/27/2024 11:34:38 Patient InstructionsNo instructions recorded. Reason for Referral None Reported. Problems Name Problem SNOMED Code Status Onset Date Resolution Date Notes Provider Name and Address Organization Details Recorded Time Essential hypertension 59708657 Active 2023 ALFONZO SANDOVAL [address], [address], [facility] 4 09:49:04 Nerve injury 13199840 Active 2024 ALFONZO SANDOVAL [address], [address], [facility] 5 11:29:49 Arthritis 8009132 Active 2024 ALFONZO SANDOVAL [address], [address], [facility] 11:30:02 Problem Notes None recorded. Procedures Surgical History Date Name Laterality Status Provider Name and Address Organization Details Recorded Time Hysterectomy completed Celina Butcher [facility] 01/11/2024 09:41:21 cervical puncture completed Mariya Cuellar MD [facility] 01/11/2024 09:42:27 Imaging Results None recorded. Procedure Notes None recorded. Medical Equipment None Reported. Allergies Allergen ID Allergen Name Allergen Category Reaction Reaction Severity Criticality Documentation Date Start Date Code Code System Note Provider Name and Address Organization Details Recorded Time 6085 codeine medicatio n Not available Not available Not available 01/11/2024 2670 RxNorm Celina camacho MD [facility] 09:40:58 6086 latex environme nt,medica tion Not available Not available Not available 01/11/2024 29030 91 RxNorm Celina camacho MD [facility] 09:41:06 Medications Name Sig Start Date Stop [...] Updated DateTime 03/27/2024 154.94 cm 37.8 kg/m2 25977.47 g KORIN BAKER NP-C [address] [facility] [address], [place], [address], [facility] 03/27/2024 11:30:52 Date Recorded Body height Body mass index (BMI) Body weight Provider Name and Address Organization Details Last Updated DateTime 01/11/2024 154.94 cm 37 kg/m2 57263.1 g KORIN BAKER NP-C [address] [facility] [address], [place], [address], [facility] 01/11/2024 09:51:22 Social History Question Answer Notes LastModified by Organizat ion Details LastModified Time How Is The Health Risk Assessment Being Completed? Phone Interview -1973 Information not available 01/11/2024 Who Is Answering The Questions? Member -1973 Information not available 01/11/2024 What Is Your Primary Language? Malian -1973 Information no t available 01/11/2024 Are You Of , , Or Thai Origin? Yes -1973 Information n ot available 03/27/2024 What Is Your Primary Race? Black/ -1973 Information not available 01/11/2024 Are You A ? No Inform ation not available 01/11/2024 If You Are A , Do You Get Health Care At The [place]? None -1973 Information not available 01/11/2024 If Yes, Please Provide The Name Of The [facility] Or Address None -1973 Information not [...] Past 2 Weeks How Often Have You Swengel Down, Depressed, Or Hopeless? Not At All Information not available 01/11/2024 Over The Past 2 Weeks How Often Have You Swengel Little Interest Or Pleasure In Doing Things? [...] SNOMED-CT Code Diagnosis ICD10 Code Diagnosis Note [id number] ALFONZO SANDOVAL [facility] [address] [facility] [address] [place] [address] 01/11/2024 09:27:19 01/21/2024 10:58:55 Essential hypertension 95185816 I10 on chlorthali done and lisinopril , checks bp at home states around 130/80s, stable, follow up with pcp as recommende d Arthritis 1488491 M19.90 on celecoxib, stable, follow up with pcp as recommende d Obesity 255162081 E66.9 encouraged diet and excersie [id number] ALFONZO SANDOVAL [facility] [address] [facility] [address] [place] [address] 03/27/2024 11:06:26 04/06/2024 17:16:02 Essential hypertension 60783391 I10 on chlorthali done and lisinopril , checks bp at home states around 130/80s, stable, follow up with pcp as recommende d Arthritis 0035997 M19.90 on celecoxib, stable, follow up with pcp as recommende d Obesity 539489347 E66.9 encouraged diet and walking for 30 minutes a day Nerve injury 57130525 T1 4.8XXA seeing a doctor, needs to have surgery, takes otc pain meds Health Concerns Section Related Observation LastModified by Organization Detai ls LastModified Time None Recorded Concern Status LastModified by Organization Details LastModified Time None Recorded Advance Directives Directive None Recorded Payers Encounter Date Sequence Insurance Name Policy Number Policy Guerrero Covered Member ID Guerrero Member ID Guarantor Name 01/11/2024 1 [facility] (MEDICARE REPLACEMENT/A DVANTAGE - HMO) [id number] Tracie Espinoza [id number] Tracie Espinoza 03/27/2024 1 [facility] (MEDICARE REPLACEMENT/A DVANTAGE - HMO) [id number] Tracie Espinoza [id number] Tracie Espinoza Notes Date Note Type Note Provider Name and Address Organization Details Recorded Time 01/11/2024 text/html Member seen via televisit ALFONZO SANDOVAL [address] [facility] [address], [place], [address], [place] - [facility] 01/11/2024 09:58:03 03/27/2024 text/html Member seen televisit ALFONZO SANDOVAL [address] [address], [place], [address], MD [facility] 03/27/2024 11:37:05 OBGyn Episode No OBEpisode recorded.
--- OUTSIDE RECORDS SUMMARY | 2024-06-24 01:54 | XMS_ITS | Clinical Summary ---
Author Organization [facility] Address [address] [place] [address] Care Team Providers Care Street Superintendent Name Role Phone Ilia Sanford MD Primary Care Provider [phone] Encounters Date Type Department Care Team Description 06/16/2024 Results Follow-Up [facility] - [address], [address] [place] [phone] Duc Blount MD NCVS/EMG ([place]) 06/15/2024 11:00 AM CDT Office Visit [address], [address] [place] [phone] None, Provider, Duc Pace MD Numbness 06/15/2024 Scan KDS INFO SRVCS Scanned, Doc Med Group EMG (SCAN) 06/15/[address], [address] [place] [phone] Duc Blount MD Referral 06/15/2024 Travel from Last 3 Months Social History Tobacco Use Types Packs/Day Years Used Date Smoking Tobacco: Never Assessed Comments Unknown Sex and Gender Information Value Date Recorded Sex Assigned at Not on file Legal 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 - 06/15/2024 11:00 AM CDT Duc [...] nerve conduction studies, the amplitude is measured [id number], the latency reported is the distal peak latency, and the conduction velocity, if measured, is determined from onset latencies and is over the forearm. For motor nerve conduction studies, the amplitude is measured [id number], the latency reported is the distal onset [...] absent sensory latency, prolonged distal motor latency [place] ROOPA. A neurophysiological grading scale for carpal [...] Blount MD NEUROLOGY ORDERABLES Sherry astorga Result [facility] [address] [place] [address], * EMG GENERIC (SCAN ORDER) (06/15/2024) 06/15/2024 us Doc Med Group Scanned SCANNING Final Resu lt from Last 3 Months Insurance [facility] DANIELA SON [id number] Superintendent Relationship Specialty Start Date End Date Ilia Sanford MD [address] [place] [address] PCP - General FAMILY PRACTICE 04/19/24
--- OUTSIDE RECORDS SUMMARY | 2024-06-24 01:54 | XMS_ITS | Encounter Summary ---
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
[2024-06-24 10:49] VITALS: BP 148/82; PULSE 80; RESP 18; TEMP 36.3; O2SAT 99; BMI 36.3
[2024-06-24] MEDS: LACTATED RINGERS 1,000 ML 150 ML IV CONT (11:00)
--- NOTE | 2024-06-24 11:19 | PM.HPGS ---
History of Present Illness History of Present Illness Consent: Risks, benefits, and alternatives have been discussed and questions answered. Patient agrees to proceed with procedure. Chief complaint: screening Narrative: Tracie Espinoza is a 68 year old female with history of colon polyp Review of Systems Review of Systems: All systems reviewed & are unremarkable except as noted in HPI and below PMFSH Past Medical History Medical History (Updated 06/24/24 @ 11:20 by Guerrero Casillas MD) Colon polyp Shoulder pain, left Cervical myelopathy Arthritis Surgical History Surgical History (Reviewed 04/21/24 @ 14:11 by Linnette Finch [facility]) History of cervical discectomy Right carpal tunnel syndrome Right carpal tunnel release June 24, 2022 History of carpal tunnel surgery of left wrist May 27, 2022 Cubital tunnel syndrome on left Left ulnar nerve decompression May 27, 2022 History of hysterectomy 2015, Dr. Quinones Family History Family History Father Hypertension Mother Hypertension Cancer Asthma Sibling No problems noted. Grandparent Cancer Diabetes mellitus Other Family history of arthritis Family history of cancer Social History Social History (Reviewed 04/21/24 @ 14:11 by Linnette Finch [facility]) Smoking packs per day: 0.5 Smoking cigarettes per day: 10.0 Years smoked: 30 Smoking pack-years: 15.00 Smoking status: Current every day smoker Tobacco type: cigarettes Second hand tobacco smoke exposure: Yes Additional smoking assessment comments: CURRENTLY SMOKES 4 CIGARETTES PER DAY Alcohol intake: never Substance use: never Substance use type: does not use Do You Feel Safe in your Home?: Yes Lack of Transportation: No Lack of Food: Never True Current Housing: I Have Housing Concerned About Future Housing: No Difficulty Paying Gas/Electric Bills: No Difficulty Paying for Meds: No Currently Unemployed: No Education: High School Diploma/GED Difficulty w/ Childcare or Family Care: No Living arrangements: with family Additional living arrangements comments: PT LIVES WITH TIMO MELENDEZ Occupation/Education: occupation 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/education 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 Gender identity (if verbalized by the patient): Female Spiritual care concerns: No Meds Home Medications and Allergies Home Medications ?Medication ?Instructions ?Recorded ?Confirmed ?Type chlorthalidone 25 mg tablet See Rx Instructions .Route 05/27/24 06/24/24 Rx .COMPLEX #45 tabs lisinopril 20 mg tablet See Rx Instructions .Route 05/31/24 06/24/24 Rx .COMPLEX #90 tabs celecoxib 100 mg capsule See Rx Instructions .Route 06/03/24 06/24/24 Rx .COMPLEX #60 caps gabapentin 100 mg capsule See Rx Instructions .Route 06/21/24 06/24/24 Rx .COMPLEX #60 caps Allergies Allergy/AdvReac Type Severity Reaction Status Date / Time latex Allergy Intermediate Itching Verified 06/24/24 10:46 codeine AdvReac Mild Headache, Verified 06/24/24 10:46 N/V Vital Signs Vital Signs - 24 hr 06/24/24 10:49 Temperature 97.3 F L Pulse Rate 80 Respiratory Rate 18 Blood Pressure 148/82 H Pulse Oximetry 99 Oxygen Delivery Room Air Exam Const: General: comfortable and no acute distress HENMT: Face/Nose/Sinus: Normal nares present Eyes: General: appearance normal, both eyes and all related structures Neck: Neck: no JVD Resp: Auscultation: clear to auscultation bilaterally Cardio: Rate: regular rate Rhythm: regular rhythm GI: Inspection: non-distended GI Palp: Yes Soft to palpation Skin: General skin exam: normal color Neuro: Speech: normal speech Extrem: General: normal to inspection Psych: Mental Status: mental status grossly normal Assessment and Plan Assessment and plan (1) Colon polyp: Code(s): K63.5 - Polyp of colon Status: Acute Assessment and Plan: colonoscopy
[2024-06-24 11:39] VITALS: BP 138/78; PULSE 84; RESP 26; O2SAT 99
[2024-06-24 11:49] VITALS: BP 144/83; PULSE 79; RESP 17; O2SAT 100
[2024-06-24 11:59] VITALS: BP 134/84; PULSE 85; RESP 18; O2SAT 99
== END 2024-06-24 12:09 | disposition home or self-care (01) ==
PROVIDERS: PCP Nurse Practitioner Adult Health; Visit Provider Internal Medicine Gastroenterology
PROC: 0DJD8ZZ Inspection of Lower Intestinal Tract, Via Natural or Artificial Opening Endoscopic (ICD-10-PCS; CPT 45378; principal; 2024-06-24 12:00)
DX: Z12.11 Encounter for screening for malignant neoplasm of colon (principal); K57.30 Diverticulosis of large intestine without perforation or abscess without bleeding; K64.8 Other hemorrhoids; Z86.0100 Personal history of colon polyps, unspecified; F17.210 Nicotine dependence, cigarettes, uncomplicated; E66.9 Obesity, unspecified; Z68.36 Body mass index [BMI] 36.0-36.9, adult
CPT/HCPCS: G0105; J2003; J2704; J7120

== ENCOUNTER 2024-10-28 10:22 | Outpatient (CLI) | payer OTHER, SELFPAY ==
--- NOTE | ~2024-10-28 | XR_ITS ---
XR_[id number]_CR 10/28/2024 10:39 Indication: Arthrodesis status Procedure: 3 view cervical spine Comparison: Comparison to multiple prior studies sequentially, with oldest reviewed study dated 01/28/2024. Findings: Stable alignment. Vertebral body heights are maintained. Status post anterior cervical fusion and discectomy at C5-7 without significant change. No prevertebral soft tissue swelling. Lateral masses normally aligned. There is moderate multilevel facet hypertrophy. Lung apices are unremarkable. Odontoid process is normal. Impression: 1: No significant interval change. Stable postoperative changes at C5-7. Reviewed, dictated and finalized at location O. Impression: 1: No significant interval change. Stable postoperative changes at C5-7.
--- OUTSIDE RECORDS SUMMARY | 2024-10-28 10:56 | XMS_ITS | Clinical Summary ---
Author Organization [facility] Address [address] [place] [address] Care Team Providers Care Sole Rounder Name Role Phone Ilia Sanford MD Primary Care Provider [phone] Social History Tobacco Use Types Packs/Day Years Used Date Smoking Tobacco: Never Assessed Comments Unknown Sex and Gender Information Value Date Recorded Sex Assigned at Not on file Legal Sex Female 2:44 PM [employer]AMPLE [employer] Gender Identity Not on file Sexual Orientation [...] season) 2023 03/17/2021, 06/28/2020, 06/07/2020 PHQ-2 (Physician [place]) 02/25/2024 RSV Immunization or 60+ Years (1 [...] on patient's age to complete this topic Insurance [facility] [place] SON [id number] Care Teams Sole Rounder Relationship Specialty Start Date End Date Ilia Sanford MD [address] [place] [address] PCP - General FAMILY PRACTICE 04/19/24
== END 2024-10-28 10:23 | disposition home or self-care (01) ==
PROVIDERS: PCP Nurse Practitioner Adult Health; Visit Provider Neurological Surgery
DX: Z98.1 Arthrodesis status (principal)
CPT/HCPCS: 72040

== ENCOUNTER 2024-11-25 10:49 | Outpatient (CLI) | payer MEDICARE, SELFPAY ==
--- NOTE | ~2024-11-25 | XR_ITS ---
Examination: XR chest 2V Clinical History: M48.02 - Spinal stenosis, cervical region Comparison: CT lung screening 01/25/2022 Technique: PA and Lateral Findings: Cardiomediastinal silhouette normal size and configuration. Lungs clear. No acute bony abnormality. IMPRESSION: 1. No acute cardiopulmonary findings. Reviewed, dictated and finalized at location R.
--- NOTE | 2024-11-25 11:31 | ECG_ITS ---
Test Date: 2024-11-25 12:00:11 Measurements Intervals [place] Rate: 68 P: 43 VT: 178 QRS: 35 QRSD: 95 T: 17 QT: 371 QTc: 395 Interpretive Statements SINUS RHYTHM LOW QRS VOLTAGE IN PRECORDIAL LEADS INFERIOR INFARCT, AGE INDETERMINATE BASELINE ARTIFACT- II, III, AVF ABNORMAL ECG Compared to ECG 11/05/2023 12:03:24 NO SIGNIFICANT CHANGE Electronically Signed On 11-25-2024 12:12:15 CDT by Ozzie Avalos D.O.
[2024-11-25 12:07] LABS: Hematocrit 43.9 % (37.0-47.0); Hemoglobin 14.2 g/dL (12.0-15.0); Immature Granulocyte Percent A 0.7 % (0-0.5); Lymphocytes Absolute Auto 2.11 K/mm3 (0.9-3.2); Mean Corpuscular HGB Conc 32.3 g/dl (32-36); Mean Corpuscular Hemoglobin 26.7 pg (26-34); Mean Corpuscular Volume 82.7 fl (80-100); Nucleated Red Blood Cells Absolute Auto 0.000 K/mm3 (0.0-0.012); Nucleated Red Blood Cells Perc 0.0 % (0.0-0.2); Platelet Count Result 197 k/mm3 (150-375); Red Blood Count 5.31 M/mm3 (4.2-5.4); White Blood Count 8.5 K/mm3 (4.5-10.0)
[2024-11-25 12:11] LABS: Add Urine Microscopic? YES; Appearance Urine Clear (Clear); Glucose Urine UA Negative (Negative); Leukocyte Esterase Ur 2+ LEU/UL (Negative); Nitrate Urine Negative (Negative); Non Pathogenic Casts 0-2; Specific Grav Ur 1.007 (1.001-1.035)
[2024-11-25 12:20] LABS: INR 1.0; Prothrombin Time 13.6 Seconds (11.1-14.7)
[2024-11-25 12:21] LABS: Partial Thromboplastin Time 32.0 Seconds (22.3-36.8)
[2024-11-25 12:46] LABS: Anion Gap 9 mmol/L (4-12); Blood Urea Nitrogen 14 mg/dL (7-17); Calcium 9.2 mg/dL (8.4-10.2); Carbon Dioxide 26 mmol/L (22-30); Chloride 102 mmol/L (98-107); Estimated Glomerular Filt Rate > 60; Glucose 92 mg/dL (65-110); Potassium 4.0 mmol/L (3.4-5.0); Sodium 137 mmol/L (137-145)
== END 2024-11-25 10:50 | disposition home or self-care (01) ==
LOC: ANHSURGERY 10:56
PROVIDERS: PCP Nurse Practitioner Adult Health; Visit Provider Neurological Surgery
DX: R94.31 Abnormal electrocardiogram [ECG] [EKG] (principal); M54.12 Radiculopathy, cervical region; M48.02 Spinal stenosis, cervical region
CPT/HCPCS: 36415; 71046; 80048; 81001; 85025; 85610; 85730; 86850; 86900; 86901; 87086; 93005

== ENCOUNTER 2024-12-08 12:15 | Inpatient (IN) | payer MEDICARE, SELFPAY ==
[2024-11-25 11:05] VITALS: BP 179/77; PULSE 68; RESP 16; TEMP 36.9; O2SAT 99; BMI 38.2
[2024-11-25 11:21] VITALS: BP 157/86
--- NOTE | 2024-11-25 11:22 | PC.NURSE ---
[facility] has started construction of its new state of the art ER which will open Spring 2026. With this, we anticipate parking may be a challenge for some our surgical patients and families. Parking spaces are limited but are available for all Surgical, obstetrics, and ER patients sharing this lot. If you arrive and find you are having a hard time finding a parking space, please note that we understand the challenges, please drive around the hospital and park near Hospital Entrance 1. When you enter this entrance, you can ask a volunteer to direct or take you back to the surgical waiting area to check in. We appreciate everyone?s understanding of these expected challenges while we build for your future. Report to the Outpatient Waiting Room, entrance under the green pavilion located off [address], at time __0600am on date _12/08/24 . Planned Procedure Time: _0730am .? Time changes happen often and if your time is changed the preop area will call you the afternoon before. - You and your visitor will be asked to self-screen and do not enter if you have any COVID symptoms. Please call surgeon if you need to reschedule. - A mask is optional within the hospital at this time. Patients may have clear liquids (water, carbonated beverages, clear teas, apple juice) until 3 hours prior to surgery with a maximum of 20 ounces. - No food from midnight until time of surgery and no smoking, or chewing tobacco (or any form of nicotine). No chewing gum, candy or mints. (04:30am) Take only the following medications with a SIP of water on the morning of surgery: __Gabapentin, Tylenol if needed DO NOT STOP ANY OF YOUR OTHER PRESCRIPTION MEDICATIONS PRIOR TO SURGERY EXCEPT THE FOLLOWING Hold all vitamins and supplements for 3 days per anesthesiologist. Medications to discontinue per physician HOLD Celebrex/NSAIDS/MOTRIN/ALEVE/Aspirin all [address] Schmitz Date to take last dose____11/30/24 Please no make-up, nail nepalese, hairspray, perfume, deodorant, or body powder the day of surgery.? No jewelry (including any body piercings) or valuables the day of surgery, leave them at home.? Please take a shower or bath the night before, or the morning of, surgery with an antibacterial soap.? Wear comfortable, loose fitting clothing.? Bring overnight bag, good shoes and phone/grease refiner operator - Jewelry must be removed prior to entering the operating room.? Rings and piercings that are not removed may be cut off. - The hospital will not accept responsibility for valuables.? - Please leave all valuables, including medications, at home the day of surgery. If you are going home after surgery, a licensed dedicated intermodal truck driver must drive you home.? - NO public transportation without another adult if you receive anesthesia. - We recommend that an adult stay with you for 24 hours following discharge. - We also recommend that you do not drive, make important decision, drink alcoholic beverages, or take any drugs that were not prescribed by your health care provider for at least 24 hours after your discharge time. Follow any additional instructions given to you from your surgeon. Telephone instructions given to __Patient and asked if any additional questions and then verbalized understanding. Patient advised to call surgeon office or pre surgery nurse liaison [phone] if any additional questions.
[2024-12-08] VITALS (18 sets, daily range): BP systolic 127–181; BP diastolic 74–101; PULSE 81–90; RESP 12–16; TEMP 36.1–36.3; O2SAT 95–100; BMI 38.0; BMI 42.3
--- NOTE | ~2024-12-08 | XR_ITS ---
EXAMINATION: XR fluoroscopy no charge DATE: 12/08/2024 10:22 INDICATION: C5-C7 posterior cervical spinal fusion TECHNIQUE: 4 fluoroscopic images of the cervical spine were obtained during procedure performed by Dr. Schmitz. Radiologist was not present for the imaging or procedure. The amount of fluoroscopy time used during this procedure was 0.5 minutes. Total DAP was 1.045 Gycm^2. COMPARISON: Outside institution radiograph dated 11/18/2024 FINDINGS: Initial image demonstrates soft tissue retractors and a metallic probe projecting over the soft tissues and posterior elements of the mid to lower cervical spine. Again seen are changes of prior C5-C7 anterior spinal fusion with interbody fusion devices at both levels and anterior plate-screw fixation. Subsequent images demonstrate placement of an instrumented C5-C7 posterior spinal fusion with placement of bilateral vertical aston and lateral mass screws on the right at C5-C7 and on the left at C6 and C7. Endotracheal tube is seen extending along the cervical trachea and beyond the inferior margins of the field of imaging. IMPRESSION: 1. Fluoroscopy utilized during combined instrumented C5-C7 anterior spinal fusion. See procedure note for further detail. Reviewed, dictated and finalized at location A. IMPRESSION: 1. Fluoroscopy utilized during combined instrumented C5-C7 anterior spinal fusi on. See procedure note for further detail.
--- NOTE | 2024-12-08 06:46 | P.PNAN_ITS ---
Anes - Initial Pre Proc Eval Procedure: Operation Date: 12/08/24 07:30 Proposed Procedures p Posterior Cervical Fusion C5-6, C6-7 - Wendi Schmitz MD Date/Time: 12/08/24 06:46 Surgeon: Wendi Schmitz MD Pre Op Diagnosis: cervical pseudoarthrosis, s/p cervical arthrodesis Patient Data Age: 69 Gender: F Height: 1.55 m Weight: 91.8 kg Last Vital Signs Temp 36.9 C 11/25/24 11:05 Pulse 68 11/25/24 11:05 Resp 16 11/25/24 11:05 BP 157/86 H 11/25/24 11:21 Pulse Ox 99 11/25/24 11:05 O2 Del Method Room Air 11/25/24 11:05 Allergies Allergy/AdvReac Type Severity Reaction Status Date / Time latex Allergy Intermediate Itching Verified 12/08/24 06:23 codeine AdvReac Mild Headache, Verified 12/08/24 06:23 N/V Home Medications ?Medication ?Instructions ?Recorded ?Confirmed ?Type chlorthalidone 25 mg tablet See Rx Instructions .Route 05/27/24 11/25/24 Rx .COMPLEX #45 tabs lisinopril 20 mg tablet See Rx Instructions .Route 0 05/31/24 12/08/24 Rx .COMPLEX #90 tabs fluticasone propionate 50 1 spray intranasal DAILY 30 days 11/22/24 11/25/24 Rx mcg/actuation nasal #16 grams spray,suspension celecoxib 100 mg capsule See Rx Instructions .Route 1 12/08/24 Rx .COMPLEX #180 caps gabapentin 100 mg capsule See Rx Instructions .Route 1 12/08/24 Rx .COMPLEX #180 caps Patient hx anesthesia problems: none Family hx anesthesia problems: none Results Review: All pre-operative results and documents have been reviewed as part of the pre-operative evaluation. [facility] Past Medical History Medical History Bilateral impacted cerumen Colon polyp Shoulder pain, left Cervical myelopathy Arthritis Surgical History Surgical History History of cervical discectomy Right carpal tunnel syndrome Right carpal tunnel release June 24, 2022 History of carpal tunnel surgery of left wrist May 27, 2022 Cubital tunnel syndrome on left Left ulnar nerve decompression May 27, 2022 History of hysterectomy 2015, Dr. Quinones Family History Family History Father Hypertension Mother Hypertension Cancer Asthma Sibling No problems noted. Grandparent Cancer Diabetes mellitus Other Family history of arthritis Family history of cancer Social History Social History Smoking packs per day: 0.1 Smoking cigarettes per day: 2.0 Years smoked: 30 Smoking pack-years: 3.00 Smoking status: Current some day smoker Tobacco type: cigarettes Second hand tobacco smoke exposure: Yes Additional smoking assessment comments: CURRENTLY SMOKES 2 CIGARETTES PER DAY Alcohol intake: never Substance use: never Substance use type: does not use Do You Feel Safe in your Home?: Yes Lack of Transportation: No Lack of Food: Never True Current Housing: I Have Housing Concerned About Future Housing: No Difficulty Paying Gas/Electric Bills: No Difficulty Paying for Meds: No Currently Unemployed: No Education: High School Diploma/GED Difficulty w/ Childcare or Family Care: No Living arrangements: with family Additional living arrangements comments: PT LIVES WITH TIMO MELENDEZ Occupation/Education: occupation 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/education comments: 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 Informed Consent: The patient's anesthetic plan and its attendant risks and benefits were discussed with the patient/family/POA. Questions were solicited and answers provided to the satisfaction of the patient/family/POA.
[2024-12-08] MEDS: LACTATED RINGERS 1,000 ML 30 ML IV CONT ×2 (06:50→10:14)
--- NOTE | 2024-12-08 07:15 | P.HP_ITS ---
H&P: HPI History of Present Illness Date/Time: 12/08/24 07:15 Chief Complaint: neck pain Narrative: Ms. Espinoza is a 69-year-old female who underwent ACDF C5-7 in November 2023 who returns today for scheduled follow-up. She had clinically done very well after surgery with resolution of her preoperative symptoms, but she has been dealing with ongoing pain related to her right shoulder with pain down the arm into the hand. She had seen Dr. Chopra for this who performed an injection in her shoulder that got rid of all of her pain for about a month. There was discussion of a possible total shoulder replacement. She is waiting to hear from that office regarding next steps in her care. Unfortunately, in the last few months, she has developed recurrent neck pain which she attributed primarily to stress surrounding the care of her sister who was being treated for cancer and who has unfortunately . Pain is primarily in the neck and backs of the shoulders. This has improved somewhat r ecently. She did admit to occasional smoking due to stress over the last few months. She currently is not smoking. She denies any swallowing issues. Review of Systems Review of Systems: All systems reviewed & are unremarkable except as noted in HPI and below PMFSH Past Medical History Medical History Bilateral impacted cerumen Colon polyp Shoulder pain, left Cervical myelopathy Arthritis Surgical History Surgical History History of cervical discectomy Right carpal tunnel syndrome Right carpal tunnel release June 24, 2022 History of carpal tunnel surgery of left wrist May 27, 2022 Cubital tunnel syndrome on left Left ulnar nerve decompression May 27, 2022 History of hysterectomy 2015, Dr. Quinones Family History Family History Father Hypertension Mother Hypertension Cancer Asthma Sibling No problems noted. Grandparent Cancer Diabetes mellitus Other Family history of arthritis Family history of cancer Social History Social History Smoking packs per day: 0.1 Smoking cigarettes per day: 2.0 Years smoked: 30 Smoking pack-years: 3.00 Smoking status: Current some day smoker Tobacco type: cigarettes Second hand tobacco smoke exposure: Yes Additional smoking assessment comments: CURRENTLY SMOKES 2 CIGARETTES PER DAY Alcohol intake: never Substance use: never Substance use type: does not use Do You Feel Safe in your Home?: Yes Lack of Transportation: No Lack of Food: Never True Current Housing: I Have Housing Concerned About Future Housing: No Difficulty Paying Gas/Electric Bills: No Difficulty Paying for Meds: No Currently Unemployed: No Education: High School Diploma/GED Difficulty w/ Childcare or Family Care: No Living arrangements: with family Additional living arrangements comments: PT LIVES WITH TIMO MELENDEZ Occupation/Education: occupation 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/education comments: 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 Gender identity (if verbalized by the patient): Female Spiritual care concerns: No Meds Home Medications and Allergies Home Medications ?Medication ?Instructions ?Recorded ?Confirmed ?Type chlorthalidone 25 mg tablet See Rx Instructions .Route 05/27/24 11/25/24 Rx .COMPLEX #45 tabs lisinopril 20 mg tablet See Rx Instructions .Route 0 05/31/24 12/08/24 Rx .COMPLEX #90 tabs fluticasone propionate 50 1 spray intranasal DAILY 30 days 11/22/24 11/25/24 Rx mcg/actuation nasal #16 grams spray,suspension celecoxib 100 mg capsule See Rx Instructions .Route 1 12/08/24 Rx .COMPLEX #180 caps gabapentin 100 mg capsule See Rx Instructions .Route 1 12/08/24 Rx .COMPLEX #180 caps Allergies Allergy/AdvReac Type Severity Reaction Status Date / Time latex Allergy Intermediate Itching Verified 12/08/24 06:23 codeine AdvReac Mild Headache, Verified 12/08/24 06:23 N/V Vital Signs Vital Signs - 24 hr 12/08/24 07:01 Temperature 97.1 F L Pulse Rate 86 Blood Pressure 150/79 H Pulse Oximetry 100 Oxygen Delivery Room Air Exam Narrative: Cervical incision is well healed Negative tinel's at right carpal tunnel Worsened paresthesias in right middle finger with Phalen's Negative Tinel's at the right elbow Pain with active ROM of right shoulder Unless otherwise stated above, the patient's physical exam is as follows: General: -Well developed and well nourished. No a cute distress. Cooperative with exam. Mental status: -Awake and oriented to person, place, an d time. Affect is normal. -Fund of knowledge appropriate -Recent and remote memory are intact -Attention span and concentration appear normal -Language function is normal -There is no evidence of aphasia in conv ersational speech. Cranial nerves: -CN II: Visual roberts full to bedside co nfrontation -CN III, IV, : Pupils equal, round, an d reactive to light; extraocular movements, no ptosis, no nystagmus -CN V: Facial sensation intact in V1 thr ough V3 distributions -CN VII: Face symmetric -CN VIII: Hearing intact to conversation al speech -CN IX, X: Palate elevates symmetrically ; normal phonation -CN XI: Symmetric full strength of gallardo ocleidomastoid and trapezius muscles -CN XII: Tongue protrudes midline Integumentary: -No obvious skin lesions or masses Motor: -Muscle tone normal without spasticity o f flaccidity. No atrophy. No fasciculations. -No pronator drift -Right upper extremity: deltoid 5/5, bic eps 5/5, triceps 5/5, wrist extensors 5/5, wrist flexors 5/5, intrinsics 5/5 -Left upper extremity: deltoid 5/5, janette ps 5/5, triceps 5/5, wrist extensors 5/5, wrist flexors 5/5, intrinsics 5/5 Sensory: -Intact to light touch throughout -Normal proprioception throughout Reflexes: -1-2+ DTR's throughout -No Sepulveda's, clonus, or Babinski bilat erally Musculoskeletal: -Symmetric; no deformities, masses or te nderness; no known fractures -Cervical spine: no tenderness to palpat ion, no pain, and normal cervical spine movements. Normal cervical lordosis -Spurling's test negative -Tinel's sign negative -Shoulder: no pain on provocative testin g bilaterally -Elbow: no instability, subluxation, or laxity bilaterally I personally reviewed her x-rays that show that the cervical plate has backed out at the C5-6 level in particular in that there are halos around the screws in C5, C6, and C7. Assessment and Plan Assessment and plan (1) Cervical pseudoarthrosis: Code(s): S12.9XXA - Fracture of neck, unspecified, initial encounter Status: Acute (2) Status post cervical arthrodesis: Code(s): Z98.1 - Arthrodesis status Status: Acute Plan Ms. Espinoza is a 69-year-old female who underwent ACDF C5-7 in November 2023 who has developed some neck pain into the backs of the shoulders over the summer. She does admit to occasional smoking over the summer as well. I reviewed her x-rays today that do unfortunately shows pseudoarthrosis at C5-6 and C6-7 with backing out of the hardware at C5-6 in particular. She denies any dysphagia at this time. I reviewed the x-rays with her today. I have ultimately recommended additional surgery in the form of posterior cervical fusion C5-6 and C6-7 in order to stabilize her spine and promote fusion. We discussed surgery in detail including risks, expected recovery, and restrictions after surgery. We discussed the extreme importance of continued smoking cessation. We will have her wear a cervical collar in the meantime to prevent further migration of her hardware. I would like for her to get a CT cervical spine without contrast. She would like to schedule surgery in mid November if possible which we will try to accommodate.
--- NOTE | 2024-12-08 07:15 | WPDHPUPDATE1 ---
History and Physical Update Update Date/Time: 12/08/24 07:15 History and Physical has been reviewed, including an updated exam of the patient. There are NO changes in the patient's condition. Risks, benefits, and alternatives have been discussed and questions answered. Patient agrees to proceed with procedure.
[2024-12-08] MEDS: ceFAZolin 2 GM in SODIUM CHLORIDE 0.9% IV 50 ML 100 ML IVPB ×2 (07:28→17:08)
[2024-12-08] MEDS: BUPIVACAINE/EPINEPHRINE 0.5% 50 ML VIAL 20 ML INFILTRATE (08:18)
[2024-12-08] MEDS: LACTATED RINGERS 1,000 ML 125 ML IV CONT (10:14)
--- NOTE | 2024-12-08 10:19 | W.PM.PROC2 ---
Procedure Note - Detailed Date of Procedure 12/08/24 Pre-op Diagnosis cervical pseudoarthrosis, s/p cervical arthrodesis Post-op Diagnosis Same Procedure Performed 1. C5, C6, and C7 lateral mass instrumentation 2. C5-7 posterior cervical arthrodesis with autograft and allograft 3. Use of C-arm for fluoroscopy Surgeon Wendi Schmitz MD [employer] [facility] Anesthesia General Description of Procedure The patient was taken to the operating room. General anesthesia was induced. Dave pins were placed, and the patient was turned prone onto the OR table. The shoulders were taped down to better expose the neck. The incision was planned with the assistance of fluoroscopy. Perioperative antibiotics were given. The surgical site was prepped and draped in usual sterile fashion. Time out was performed. Local anesthetic was injected into the planned incision. A midline posterior cervical incision was made with a 10-blade scalpel. The soft tissue was dissected to the spinous processes with the bovie. The laminae and lateral masses were exposed with the bovie as well. A self-retaining retractor was placed, and the C-arm was used to verify the correct level. Assistant Front Office Manager holes were created in the C5, C6, and C7 lateral masses on the right side. The hand drill was drilled to a depth of 12mm. The holes were palpated and then deepened to 14mm. The 3.0 tap was passed to a depth of 14mm as well. The holes were again palpated to confirm lack of breech of the bone. 14mm screws were placed at each level. The bone was decorticated with the drill. This process was repeated on the left side. Assistant Front Office Manager holes were created in the C5, C6, and C7 lateral masses on the left side. The hand drill was drilled to a depth of 12mm. The holes were palpated and then deepened to 14mm. The 3.0 tap was passed to a depth of 14mm as well. The holes were again palpated to confirm lack of breech of the bone. At C5 on the left, the screw broke out of the lateral mass, preventing screw placement. This one was left out of place. The small amount of bone was saved for autograft which was morselized. 14mm screws were placed at C6 and C7. The bone was decorticated with the drill in the facets and along the laminae. A 30mm aston was placed on the left side and secured with set screws. A 40mm aston was placed on the right side and secured with set screws. Autograft was placed in the facet and the region of the lateral mass on the left side. We attempted to take xrays which were difficult to visualize due to the location of her surgery and shadow of the shoulders; however, we were able to confirm accurate levels. Magnetos allograft was placed around the screws and over the laminae. Hemostasis was achieved with the bipolar. A hemovac drain was placed in the epidural space and tunneled inferiorly. The surgical site was copiously irrigated. The muscles were approximated with 0 vicryl. The fascia was closed with 0 vicryl as well. The deep dermis was closed with 2-0 vicryl, and the superficial dermis was closed with 3-0 vicryl. The skin was closed with subcuticular 4-0 monocryl. Skin glue and sterile dressings were placed. ? ? The patient was then returned to the supine position on the stretcher. The Dave was removed, and the patient was transferred back to the stretcher in the supine position. The patient was extubated, transferred to the bed, and taken to the PACU without incident. Billing codes: 37732, 27403, 21897 Estimated Blood Loss 50 Drains Yes Packing No Pathology None sent Complications None Condition Stable Disposition PACU [facility] Billing Surgery - Charge Forward: Surgery Billing
[2024-12-08] MEDS: fentaNYL CITRATE INJ (*CRX) 100 MCG/2 ML VIAL 25 MCG IV PUSH ×8 (10:29→11:38)
[2024-12-08] MEDS: SODIUM CHLORIDE 0.9% IV 1,000 ML 100 ML IV CONT ×2 (12:54→21:54)
[2024-12-08] MEDS: ACETAMINOPHEN 500 MG TABLET 1000 MG PO ×3 (12:58→23:51)
[2024-12-08] MEDS: oxyCODONE HCL (*CRX) 5 MG TAB IR 10 MG PO ×3 (12:58→23:51)
[2024-12-08] MEDS: CHLORTHALIDONE 12.5 MG TAB PO (13:07)
--- NOTE | 2024-12-08 13:19 | ADMGEN ---
This patient, Tracie Espinoza, was admitted to [facility] Surg Room 302-01. Patient/family oriented to hospital policies and general routines including ID bracelet, bed and alarms, visiting hours, pain management, procedures, bathroom and other care routines, personal items, smoking policy, room service/diet, and visiting hours. Information on how to activate the Rapid Response Team has been discussed. Patient/Family are encouraged to report perceived risks to care and to ask questions if they do not understand what they are told or what they should do.
[2024-12-08] MEDS: MORPHINE SULFATE (*CRX) 4 MG/ML INJ 2 MG IV PUSH (15:41)
[2024-12-08] MEDS: CYCLOBENZAPRINE HCL 10 MG TABLET PO (17:07)
[2024-12-08] MEDS: GABAPENTIN 100 MG CAPSULE BY MOUTH (17:09)
[2024-12-08] MEDS: DOCUSATE SODIUM 100 MG CAPSULE PO (21:52)
[2024-12-08] MEDS: ceFAZolin 2 GM in SODIUM CHLORIDE 0.9% IV 50 ML IVPB (21:54)
[2024-12-09 01:03] VITALS: BP 123/71; PULSE 82; RESP 18; TEMP 36.9; O2SAT 96
[2024-12-09] MEDS: oxyCODONE HCL (*CRX) 5 MG TAB IR 10 MG PO ×4 (04:55→21:03)
[2024-12-09] MEDS: ACETAMINOPHEN 500 MG TABLET 1000 MG PO ×4 (04:55→23:42)
[2024-12-09 06:00] VITALS: BP 133/57; PULSE 64; RESP 16; TEMP 36.9; O2SAT 99
[2024-12-09 07:12] VITALS: BP 134/69; PULSE 71; RESP 15; TEMP 35.8; O2SAT 98
[2024-12-09] MEDS: ceFAZolin 2 GM in SODIUM CHLORIDE 0.9% IV 50 ML IVPB (07:33)
[2024-12-09] MEDS: CHLORTHALIDONE 12.5 MG TAB PO (08:31)
[2024-12-09] MEDS: DOCUSATE SODIUM 100 MG CAPSULE PO ×2 (08:31→21:03)
[2024-12-09] MEDS: GABAPENTIN 100 MG CAPSULE BY MOUTH ×2 (08:31→17:16)
[2024-12-09] MEDS: FLUTICASONE PROPIONATE 0.05% NA SPR 16 GM BTL (*BKC) 1 SPRAY NASAL (08:32)
[2024-12-09] MEDS: CYCLOBENZAPRINE HCL 10 MG TABLET PO ×3 (11:24→23:42)
--- NOTE | 2024-12-09 12:58 | WPDNEUROSGPN ---
Progress Note: A&P Assessment and Plan (1) Cervical pseudoarthrosis: Code(s): S12.9XXA - Fracture of neck, unspecified, initial encounter Status: Acute (2) Status post cervical arthrodesis: Code(s): Z98.1 - Arthrodesis status Status: Acute Plan -Remove hemovac drain -Keep today for pain control -Anticipate discharge home tomorrow -Ok to shower tomorrow -Cervical collar on at all times except when showering Subjective Date/time seen: 12/09/24 12:58 Interval history: Having quite a bit of neck pain but not requiring IV medication. Ambulated with therapy. Voiding independently and tolerating oral intake. Review of Systems Review of Systems: All systems reviewed & are unremarkable except as noted in HPI and below Exam Narrative: AOx4 Full strength in all extremities Sensation intact Cervical collar in place Incision c/d/i with skin glue in place Objective Data Vital Signs Vital Signs: Vital Signs - 24 hr 12/08/24 14:42 12/08/24 14:53 12/08/24 15:12 Temperature 97.1 F L Pulse Rate 89 Respiratory Rate 16 Blood Pressure 181/101 H Pulse Oximetry 96 Oxygen Delivery Room Air Room Air 12/08/24 15:45 12/08/24 19:12 12/09/24 01:03 Temperature 97.4 F L 98.4 F Pulse Rate 90 82 Respiratory Rate 16 18 Blood Pressure 156/94 H 127/75 123/71 Pulse Oximetry 97 96 Oxygen Delivery 12/09/24 06:00 12/09/24 07:12 Temperature 98.5 F 96.4 F L Pulse Rate 64 71 Respiratory Rate 16 15 Blood Pressure 133/57 L 134/69 Pulse Oximetry 99 98 Oxygen Delivery Intake/Output Intake/Output: Intake & Output 12/06/24 12/07/24 12/08/24 12/09/24 23:59 23:59 23:59 23:59 Intake Total 2300 857.6 Output Total 15 140 Balance 2285 717.6 Meds/Results Medications: Active Medications Generic Name Dose Route Start Last Admin Trade Name Freq PRN Reason Stop Dose Admin Acetaminophen 1,000 mg 12/08/24 12:12 12/09/24 11:16 Acetaminophen 500 Mg Tablet PO 1,000 mg Q6H KD Administration Al Hydrox/Mg Hydrox/Simethicone 20 ml 12/08/24 12:12 Mag Hydrox/Al Hydrox/Simeth 30 Ml Udc PO Q4H PRN Indigestion/Heartburn Bisacodyl 10 mg 12/08/24 12:12 Bisacodyl 10 Mg Suppository RECTAL DAILY PRN Constipation Chlorthalidone 12.5 mg 12/08/24 14:00 12/09/24 08:31 Chlorthalidone 12.5 Mg Tab PO 12.5 mg QAM KD Administration Cyclobenzaprine HCl 10 mg 12/08/24 12:12 12/09/24 11:24 Cyclobenzaprine Hcl 10 Mg Tablet PO 10 mg TID PRN Administration Muscle Spasms Docusate Sodium 100 mg 12/08/24 21:00 12/09/24 08:31 Docusate Sodium 100 Mg Capsule PO 100 mg Q12HR KD Administration Fluticasone Propionate 1 spray 12/09/24 09:00 12/09/24 08:32 Fluticasone Propionate 0.05% Na Spr 16 Gm Btl (*Bkc) NASAL 1 spray DAILY KD Administration Gabapentin 100 mg 12/08/24 17:00 12/09/24 08:31 Gabapentin 100 Mg Capsule BY MOUTH 100 mg BID KD Administration Cefazolin Sodium 2 gm/ Sodium 50 mls @ 100 mls/hr 12/08/24 15:00 12/09/24 07:33 Chloride IVPB 2 mls/hr Q8HR [facility] Administration Lisinopril 20 mg 12/08/24 14:00 12/09/24 08:31 Lisinopril 20 Mg Tablet BY MOUTH 20 mg DAILY KD Administration Morphine Sulfate 2 mg 12/08/24 12:18 12/08/24 15:41 Morphine Sulfate (*Crx) 4 Mg/Ml Inj IV PUSH 2 mg Q2H PRN Administration Breakthrough Pain Ondansetron HCl 4 mg 12/08/24 12:12 Ondansetron Inj 4 Mg/2 Ml Vial IV PUSH Q8H PRN Nausea And Vomiting Oxycodone HCl 10 mg 12/08/24 12:12 12/09/24 08:29 Oxycodone Hcl (*Crx) 5 Mg Tab Ir PO 10 mg Q4H PRN Administration Pain Rated 7-10 Oxycodone HCl 5 mg 12/08/24 12:12 Oxycodone Hcl (*Crx) 5 Mg Tab Ir PO Q4H PRN Pain Rated 4-6 Senna/Docusate Sodium 1 tab 12/08/24 12:12 Senna/Docusate Sodium Tablet PO HS PRN Constipation Radiology Results: ITS Impressions Fluoroscopy 12/08/24 12:04 IMPRESSION: 1. Fluoroscopy utilized during combined instrumented C5-C7 anterior spinal fusion. See procedure note for further detail.
[2024-12-09] MEDS: ceFAZolin 2 GM in SODIUM CHLORIDE 0.9% IV 50 ML 100 ML IVPB (13:22)
[2024-12-09 15:12] VITALS: BP 170/97; PULSE 86; RESP 16; TEMP 36.4; O2SAT 99
[2024-12-09 23:00] VITALS: BP 149/52; PULSE 68; RESP 16; TEMP 36.5; O2SAT 97
[2024-12-10] MEDS: oxyCODONE HCL (*CRX) 5 MG TAB IR 10 MG PO ×3 (02:21→18:26)
[2024-12-10] MEDS: ACETAMINOPHEN 500 MG TABLET 1000 MG PO ×4 (05:23→23:50)
[2024-12-10 06:55] VITALS: BP 170/89; PULSE 100; RESP 16; TEMP 36.6; O2SAT 97
[2024-12-10] MEDS: DOCUSATE SODIUM 100 MG CAPSULE PO ×2 (08:47→20:52)
[2024-12-10] MEDS: FLUTICASONE PROPIONATE 0.05% NA SPR 16 GM BTL (*BKC) 1 SPRAY NASAL (08:47)
[2024-12-10] MEDS: CHLORTHALIDONE 12.5 MG TAB PO (08:47)
[2024-12-10] MEDS: GABAPENTIN 100 MG CAPSULE BY MOUTH ×2 (08:47→16:26)
--- NOTE | 2024-12-10 10:12 | P.PNNEUSUR_ITS ---
Progress Note: A&P Assessment and Plan (1) Cervicalgia: Code(s): M54.2 - Cervicalgia Status: Acute Assessment and Plan: 69-year-old female status post posterior cervical fusion 2 days ago who still has some muscle spasm pain. A posterior cervical surgery can be very painful and I suspect she may need another day or 2 in the hospital for additional pain control and recovery. I discussed with Dr. Breen changing her oral pain medications and we decided to try dose of IV Valium to see if this can help her with her acute muscle spasm pain rather than changing her standing oral pain medications. Subjective Date/time seen: 12/10/24 10:12 Interval history: the patient notes she still in extreme pain in her neck and occluding muscle spasms. She feels that her pain is 910. He does not feel ready to go home today. Exam Narrative: Patient is awake alert no acute distress she moves her bilateral upper extremities 5/5 strength including the deltoid, biceps, triceps, wrist exten sors, wrist flexors there is a bandage over her incision that was changed today with some drainage noted in midline. Objective Data Vital Signs Vital Signs: Vital Signs - 24 hr 12/09/24 15:12 12/09/24 21:09 12/09/24 23:00 Temperature 97.6 F 97.7 F Pulse Rate 86 68 Respiratory Rate 16 16 Blood Pressure 170/97 H 149/52 H Pulse Oximetry 99 97 Oxygen Delivery Room Air 12/10/24 06:55 Temperature 97.8 F Pulse Rate 100 Respiratory Rate 16 Blood Pressure 170/89 H Pulse Oximetry 97 Oxygen Delivery Intake/Output Intake/Output: Intake & Output 12/07/24 12/08/24 12/09/24 12/10/24 23:59 23:59 23:59 23:59 Intake Total 2300 1859.2 Output Total 15 140 Balance 2285 1719.2 Meds/Results Medications: Active Medications Generic Name Dose Route Start Last Admin Trade Name Freq PRN Reason Stop Dose Admin Acetaminophen 1,000 mg 12/08/24 12:12 12/10/24 05:23 Acetaminophen 500 Mg Tablet PO 1,000 mg Q6H KD Administration Al Hydrox/Mg Hydrox/Simethicone 20 ml 12/08/24 12:12 Mag Hydrox/Al Hydrox/Simeth 30 Ml Udc PO Q4H PRN Indigestion/Heartburn Bisacodyl 10 mg 12/08/24 12:12 Bisacodyl 10 Mg Suppository RECTAL DAILY PRN Constipation Chlorthalidone 12.5 mg 12/08/24 14:00 12/10/24 08:47 Chlorthalidone 12.5 Mg Tab PO 12.5 mg QAM KD Administration Cyclobenzaprine HCl 10 mg 12/08/24 12:12 12/09/24 23:42 Cyclobenzaprine Hcl 10 Mg Tablet PO 10 mg TID PRN Administration Muscle Spasms Diazepam 5 mg 12/10/24 10:12 Diazepam Inj (*Crx) 10 Mg/2 Ml Syringe IV PUSH 12/10/24 10:13 ONCE ONE Docusate Sodium 100 mg 12/08/24 21:00 12/10/24 08:47 Docusate Sodium 100 Mg Capsule PO 100 mg Q12HR KD Administration Fluticasone Propionate 1 spray 12/09/24 09:00 12/10/24 08:47 Fluticasone Propionate 0.05% Na Spr 16 Gm Btl (*Bkc) NASAL 1 spray DAILY KD Administration Gabapentin 100 mg 12/08/24 17:00 12/10/24 08:47 Gabapentin 100 Mg Capsule BY MOUTH 100 mg BID KD Administration Lisinopril 20 mg 12/08/24 14:00 12/10/24 08:48 Lisinopril 20 Mg Tablet BY MOUTH 20 mg DAILY KD Administration Morphine Sulfate 2 mg 12/08/24 12:18 12/08/24 15:41 Morphine Sulfate (*Crx) 4 Mg/Ml Inj IV PUSH 2 mg Q2H PRN Administration Breakthrough Pain Ondansetron HCl 4 mg 12/08/24 12:12 Ondansetron Inj 4 Mg/2 Ml Vial IV PUSH Q8H PRN Nausea And Vomiting Oxycodone HCl 10 mg 12/08/24 12:12 12/10/24 08:53 Oxycodone Hcl (*Crx) 5 Mg Tab Ir PO 10 mg Q4H PRN Administration Pain Rated 7-10 Oxycodone HCl 5 mg 12/08/24 12:12 Oxycodone Hcl (*Crx) 5 Mg Tab Ir PO Q4H PRN Pain Rated 4-6 Senna/Docusate Sodium 1 tab 12/08/24 12:12 Senna/Docusate Sodium Tablet PO HS PRN Constipation Radiology Results: ITS Impressions Fluoroscopy 12/08/24 12:04 IMPRESSION: 1. Fluoroscopy utilized during combined instrumented C5-C7 anterior spinal fusion. See procedure note for further detail.
[2024-12-10] MEDS: diazePAM INJ (*CRX) 10 MG/2 ML SYRINGE 5 MG IV PUSH (10:21)
--- NOTE | 2024-12-10 10:35 | PCOTNOTE ---
Patient declined OT services this A.M. Patient states she has to much pain, can not tolerate at this time, Patient states she will not be leaving today. Patient's RN, has cervical brace removed due to soiled and cleaned and waiting for it to dry. Will attempt again this afternoon.
[2024-12-10 12:40] VITALS: BP 139/90; PULSE 100; RESP 19; TEMP 37.6; O2SAT 97
[2024-12-10] MEDS: CYCLOBENZAPRINE HCL 10 MG TABLET PO (16:26)
[2024-12-10 21:32] VITALS: BP 140/78; PULSE 100; RESP 16; TEMP 36.9; O2SAT 96
[2024-12-11 05:27] VITALS: BP 146/74; PULSE 101; RESP 18; TEMP 36.9; O2SAT 97
[2024-12-11] MEDS: ACETAMINOPHEN 500 MG TABLET 1000 MG PO ×3 (05:37→17:43)
[2024-12-11] MEDS: GABAPENTIN 100 MG CAPSULE BY MOUTH ×2 (08:55→16:11)
[2024-12-11] MEDS: CHLORTHALIDONE 12.5 MG TAB PO (08:55)
[2024-12-11] MEDS: FLUTICASONE PROPIONATE 0.05% NA SPR 16 GM BTL (*BKC) 1 SPRAY NASAL (08:55)
[2024-12-11] MEDS: DOCUSATE SODIUM 100 MG CAPSULE PO (08:55)
[2024-12-11] MEDS: oxyCODONE HCL (*CRX) 5 MG TAB IR PO (12:24)
[2024-12-11 14:00] VITALS: BP 142/79; PULSE 107; RESP 18; TEMP 36.3; O2SAT 96
--- NOTE | 2024-12-14 16:41 | PM.DS ---
DS: Admitting Diagnosis Discharge Date 12/11/24 Admitting Diagnosis Pseudoarthrosis of cervical spine DS: Discharge Diagnosis Discharge Diagnosis (1) Status post cervical arthrodesis: Code(s): Z98.1 - Arthrodesis status Status: Acute DS: Summary Hospital Course Hospital Course: Ms. Espinoza is a 69-year-old female who presented for surgery on December 08; please see the operative note for more details. She was transferred to the floor after surgery. She worked with therapy after surgery who eventually cleared her for discharge home. She had significant pain after surgery requiring hospitalization until this was better controlled on oral medications by post-operative day 3. She was tolerating oral intake and voiding independently. She discharged home on POD3. Time Spent with Patient Time attestation: Total time spent providing and/or coordinating discharge services: Discharge Plan Discharge Consulting providers: Josh Morales; Brian Trotter; Bertram Javed Discharging Clinician: Jag Martinez Anticipated Discharge Date/Time: 12/11/24 17:36 Patient Disposition: Home Activity: other - see discharge instructions Diet: as tolerated Discharge Instructions: Discharge Instructions Procedure: Posterior cervical fusion Your doctor removed bone and ligament to decompress your spinal cord and nerve roots, and then placed hardware to stabilize the spine. Here are some instructions to follow upon discharge from the hospital to help in your recovery. Activity: Unless released by your doctor, you should not return to work. You should rest at home and let your body heal. Taking short walks is encouraged, but avoid strenuous exercise. Do not jog, run, lift weights, bicycle, or participate in other exercises unless specifically allowed by your doctor. Most importantly, avoid lifting objects heavier than a telephone book or a carton of milk as this places a strain on your neck. If possible, avoid household activities that involve lifting such as laundry, grocery shopping, or childcare. Try to arrange for help from friends and family for these activities while your neck heals. You should not drive while your cervical collar is on. You may shower starting on post-operative day 2 (Friday). After showering, lightly dab your wound dry. Do not take baths or sit in a hot tub or pool until approved by your doctor. You may get your incision wet with soap and water, but do not submerge the incision under water. DO NOT SMOKE TOBACCO. Smoking has been proven to interfere with the normal healing of the bones in your neck. Smoking will dramatically reduce the success rate of your surgery. Diet: You can return to your usual diet, unless instructed otherwise by your doctor. Medications: You should resume taking all of your normal medications unless instructed otherwise by your doctor. You may take Tylenol 1000mg every 6 hours as needed for pain. If your pain is still uncontrolled after Tylenol, then take oxycodone. You may also take flexeril for neck pain and muscle spasms every 8 hours. However, you should not take anti-inflammatory medications (such as Motrin, Advil, ibuprofen, naproxen) unless specifically approved by your doctor. These medications can prevent your bones from healing properly after surgery. If you have questions about your normal medications (for example, those prescribed for high blood pressure), you should contact your primary care doctor. You will be given a prescription for pain medications and possibly a laxative, as pain medications can cause constipation. Take the pain medication as instructed. If your pain is not reasonably controlled by the medications, contact your doctor's office. Follow-up appointment: You should already have a follow-up appointment scheduled with Dr. Schmitz in 2 weeks. If you do not have an appointment, call to schedule one. When to call our office: Although your surgery and recovery will likely be uneventful, you may have some residual aches and pains in your neck and/or arms. This is normal and should improve in the next few weeks. However, should you experience any of the following, call our office immediately. For medical emergencies, call [phone]. For urgent calls after hours, please call our exchange through our office at : 1. Fevers 2. Drainage from your incision, or surrounding redness or swelling 3. Pain that is progressively getting worse and is not relieved by your medications 4. New numbness or weakness 5. Difficulty controlling your bladder 6. Loss of control of your bowels Wendi Schmitz MD Neurosurgery [facility] [address], [place] [address] Patient Instructions: Antibiotic Form, Cigarette Smoking and Your Health (GEN) Patient Language: Tajik Stand Alone Forms: General Discharge Information Follow-up/Referrals: Wendi Schmitz MD [Physician, Neurosurgery] Discharge Medications: New cyclobenzaprine 10 mg Tablet 10 mg PO TID PRN (Reason: Muscle Spasms) 10 Days Qty: 30 0RF sennosides-docusate sodium [Senokot-S] 8.6-50 mg Tablet 1 tab-cap PO BID Qty: 14 0RF oxycodone 5 mg Tablet 5 - 10 mg PO Q6H PRN (Reason: Pain Rated 4-6) 7 Days Qty: 56 0RF Continued fluticasone propionate 50 mcg/actuation spray,suspension 1 spray intranasal DAILY 30 Days Qty: 16 2RF Rx Instructions: administer into each nostril chlorthalidone 25 mg tablet See Rx Instructions .ROUTE .COMPLEX Qty: 45 3RF Dose Instruction: TAKE 1/2 TABLET BY MOUTH DAILY Rx Instructions: TAKE 1/2 TABLET BY MOUTH DAILY lisinopril 20 mg tablet See Rx Instructions .ROUTE .COMPLEX Qty: 90 3RF Dose Instruction: TAKE 1 TABLET BY MOUTH EVERY DAY Rx Instructions: TAKE 1 TABLET BY MOUTH EVERY DAY gabapentin 100 mg capsule See Rx Instructions .ROUTE .COMPLEX Qty: 180 0RF Dose Instruction: TAKE 1 CAPSULE BY MOUTH TWICE DAILY Rx Instructions: TAKE 1 CAPSULE BY MOUTH TWICE DAILY Held celecoxib 100 mg capsule See Rx Instructions .ROUTE .COMPLEX Qty: 180 0RF Hold Instructions: Resume on 03/10/25. Dose Instruction: TAKE ONE CAPSULE BY MOUTH TWICE DAILY Rx Instructions: TAKE ONE CAPSULE BY MOUTH TWICE DAILY Date of admission: 12/08/24 12:15 Primary Care Provider: Lani Drummond Admitting Provider: Wendi Schmitz Attending physician on admission: Wendi Schmitz Condition: Stable
== END 2024-12-11 18:30 | disposition home or self-care (01) | DRG 472 ==
LOC: ANH3MEDSUR 12:24
PROVIDERS: Admitting Provider Neurological Surgery; PCP Nurse Practitioner Adult Health; Visit Provider Neurological Surgery
PROC: 0RG2071 Fusion of 2 or more Cervical Vertebral Joints with Autologous Tissue Substitute, Posterior Approach, Posterior Column, Open Approach (ICD-10-PCS; principal; 2024-12-08 07:30)
DX: T84.226A Displacement of internal fixation device of vertebrae, initial encounter (principal); M96.0 Pseudarthrosis after fusion or arthrodesis; Z72.0 Tobacco use; Z98.1 Arthrodesis status
CPT/HCPCS: 97116; 97161; 97166; 97530; 97535; 99199; J0690; A9270; J1100; J1171; J2003; J2250; J2270; J2405; J2704; J3010; J3360; J7030; J7120

== ENCOUNTER 2024-12-28 12:36 | Outpatient (CLI) | payer MEDICARE, SELFPAY ==
--- NOTE | ~2024-12-28 | MR_ITS ---
EXAMINATION: MR orbits face neck wo/w con DATE: 12/28/2024 14:23 INDICATION: Localized swelling, mass and lump, neck. Mass behind right ear. TECHNIQUE: Magnetic resonance imaging (MRI) of the neck was performed without and with 20 mL MultiHance intravenous contrast. COMPARISON: Cervical spine MRI 07/10/2023, ultrasound 11/18/2024 FINDINGS: In the superficial right parotid gland, there is a 2.0 x 1.7 cm mixed cystic and solid mass. There is a normal superficial lymph node posterior to right ear. There are no pathologically enlarged lymph nodes. There is mild mucosal thickening in the ethmoid sinuses. There are changes of anterior and posterior fusion procedures from C5 to C7. There is fluid posterior to the cervical spine from C3 to T1, likely a seroma. IMPRESSION: 1. 2.0 x 1.7 cm mass in right parotid gland. The differential diagnosis includes benign mixed tumor, Warthin tumor, and less likely nadia metastatic disease or primary malignancy. Ultrasound-guided fine-needle aspiration results are pending. 2. Normal superficial lymph node posterior to right ear. Reviewed, dictated and finalized at location E. DIRECTOR IMPRESSION: 1. 2.0 x 1.7 cm mass in right parotid gland. The differential diagnosis include s benign mixed tumor, Warthin tumor, and less likely nadia metastatic disease o r primary malignancy. Ultrasound-guided fine-needle aspiration results are pend ing. 2. Normal superficial lymph node posterior to right ear.
--- NOTE | ~2024-12-28 | US_ITS ---
EXAMINATION: US FNA w image guidance DATE: 12/28/2024 15:05 INDICATION: Other disease of salivary gland TECHNIQUE: A time-out was performed to verify the patient's name, date of , and procedure to be performed. The procedure and its benefits and risks were discussed with the patient. Risks specifically discussed included bleeding and infection. The patient understood the risks and agreed to proceed. The neck was prepped and draped in the usual sterile manner. 3 mL 1% lidocaine was used for local anesthesia. 6 passes were made with a 25G needle into the lesion. Appropriate needle location was documented with continuous sonographic guidance. A sterile bandage was applied. There were no immediate complications. FINDINGS: Grayscale ultrasound images demonstrate biopsy needles advanced into into the 2.5 x 1.8 x 1.5 cm complex cystic right parietal lesion with needle tip targeting the hypoechoic solid component and internal septations. IMPRESSION: 1. Successful ultrasound-guided fine needle aspiration of a 2.5 cm complex cystic right parotid lesion. Reviewed, dictated and finalized at location A. GER FRONT OFFICE IMPRESSION: 1. Successful ultrasound-guided fine needle aspiration of a 2.5 cm complex cys tic right parotid lesion.
--- OUTSIDE RECORDS SUMMARY | 2024-12-28 14:20 | XMS_ITS | Data Portability ---
Author Organization MD Hadley MANDUJANO [facility] Address [address] [facility] [address] [place] [address] Assessment No assessment recorded. Plan of Treatment [...] By Organization Details Last Modified Time 03/27/2024 [id number] walking for 30 minutes follow up with pcp as needed [email or web address] Not available 03/27/2024 11:34:38 Patient InstructionsNo instructions recorded. Reason for Referral None Reported. Problems Name Problem SNOMED Code Status Onset Date Resolution Date Notes Provider Name and Address Organization Details Recorded Time Essential hypertension 07544274 Active 2023 ALFONZO SANDOVAL [address], 1, [place] ALBACODY MANDUJANO [facility] 4 09:49:04 Nerve injury 38360052 Active 2024 ALFONZO SANDOVAL [address] [facility] [address], [place], 1, MD [place] ALBACODY MANDUJANO [facility] 5 11:29:49 Arthritis 3077490 Active 2024 ALFONZO SANDOVAL [address] [address], [place], [address], [place] ALBACODY MANDUJANO [facility] 5 11:30:02 Problem Notes None recorded. Procedures [...] Not available Not available Not available 01/11/2024 [id number] RxNorm Celina camacho MD [facility] [...] Updated DateTime 03/27/2024 154.94 cm 37.8 kg/m2 44968.47 g KORIN BAKER GENERAL ADMINISTRATOR-C [address], [place], [address], [facility] 03/27/2024 11:30:52 Date Recorded Body height Body mass index (BMI) Body weight Provider Name and Address Organization Details Last Updated DateTime 01/11/2024 154.94 cm 37 kg/m2 04490.1 g KORIN BAKER, GENERAL ADMINISTRATOR-C [address] [facility] [address], [place], [address], [facility] 01/11/2024 09:51:22 Social History Question Answer Notes LastModified by Organizat ion Details LastModified Time How Is The Health Risk Assessment Being Completed? Phone Interview -1973 Information not available 01/11/2024 Who Is Answering The Questions? Member -1973 Information not available 01/11/2024 What Is Your Primary Language? Portuguese Information no t available 01/11/2024 Are You Of , , Or Barbadian Origin? Yes Information n ot available 03/27/2024 What Is Your Primary Race? Black/ -1973 Information not available 01/11/2024 Are You A ? No Inform ation not available 01/11/2024 If You Are A , Do You Get Health Care At The [place]? None Information not available 01/11/2024 If Yes, Please Provide The Name Of The [facility] Clinic Or Address None Information not available [...] Past 2 Weeks How Often Have You [place] Down, Depressed, Or Hopeless? Not At All Information not available 01/11/2024 Over The Past 2 Weeks How Often Have You [place] Little Interest Or Pleasure In Doing Things? [...] Diagnosis SNOMED-CT Code Diagnosis ICD10 Code Diagnosis IMO Codes Diagnosis Note [id number] ALFONZO SANDOVAL [facility] [address] [facility] [address] [place] [address] 01/11/2024 09:27:19 01/21/2024 10:58:55 Essential hypertension 69290738 I10 on chlorthali done and lisinopril , checks bp at home states around 130/80s, stable, follow up with pcp as recommende d Arthritis 9045760 M19.90 on celecoxib, stable, follow up with pcp as recommende d Obesity 670039064 E66.9 encouraged diet and excersie [id number] ALFONZO SANDOVAL [facility] [address] [facility] [address] [place] [address] 03/27/2024 11:06:26 04/06/2024 17:16:02 Essential hypertension 56245225 I10 on chlorthali done and lisinopril , checks bp at home states around 130/80s, stable, follow up with pcp as recommende d Arthritis 0128845 M19.90 on celecoxib, stable, follow up with pcp as recommende d Obesity 802584128 E66.9 encouraged diet and walking for 30 minutes a day Nerve injury 35808413 T1 4.8XXA seeing a doctor, needs to have surgery, takes otc pain meds Health Concerns Section Related Observation LastModified by Organization Detai ls LastModified Time None Recorded Concern Status LastModified by Organization Details LastModified Time None Recorded Advance Directives Directive None Recorded Payers Insurance Date Sequence Insurance Name Policy Number Policy Guerrero Covered Member ID Guerrero Member ID Guarantor Name 09/19/2024 1 [employer] (MEDICARE REPLACEMENT/A DVANTAGE - HMO) [id number] Tracie Espinoza [id number] Tracie Espinoza Notes Date Note Type Note Provider Name and Address Organization Details Recorded Time 01/11/2024 text/html Member seen via televisit ALFONZO SANDOVAL [address], [place], [address], - [facility] 01/11/2024 09:58:03 03/27/2024 text/html Member seen televisit ALFONZO SANDOVAL [address], [place], [address], - [facility] 03/27/2024 11:37:05 OBGyn Episode No OBEpisode recorded.
--- NOTE | 2024-12-28 14:50 | CY_PTH ---
PATIENT: Tracie Espinoza LOC: ANHIMG U#:[id number] AGE/SX: 69/F ROOM: RE12/28/[address]: Carlos A Haque MD : 1955 BED: DIS: 12/28/2024 SPEC #: [id number] RECD: 12/29/24 07:16 STATUS: CLAUDIA RENader #: [id number] ADRIAN: 12/28/24 14:[address]: Carlos A Haque DEPT: [facility] Cytology RECD BY: Rocio Amato ENTERED: 12/29/24 07:17 SP TYPE: Cytology OTHR DR: Lani Drummond APRN Tissues: A - FNA Non Thyroid Procedures: Hematoxylin and Eosin Stain Cell Block Cytopathology Cytospin
== END 2024-12-28 12:37 | disposition home or self-care (01) ==
PROVIDERS: PCP Nurse Practitioner Adult Health; Visit Provider Otolaryngology Otolaryngology/Facial Plastic Surgery
DX: K11.8 Other diseases of salivary glands (principal); R22.1 Localized swelling, mass and lump, neck
CPT/HCPCS: 10005; 70543; 88108; 88305; A9577

== ENCOUNTER 2025-01-31 11:30 | Outpatient (CLI) | payer MEDICARE, SELFPAY ==
[2025-01-31 19:46] LABS: Cholesterol 182 mg/dL (0-200); HDL Direct 37 mg/dL; Triglycerides 96 mg/dL (<150); Uric Acid 7.3 mg/dL (2.5-7.5)
== END 2025-01-31 11:31 | disposition home or self-care (01) ==
LOC: ANHBWCLAB 11:30
PROVIDERS: PCP Nurse Practitioner Adult Health; Visit Provider Nurse Practitioner Adult Health
DX: I10 Essential (primary) hypertension (principal); M25.50 Pain in unspecified joint
CPT/HCPCS: 36415; 80061; 84550